=== PATIENT | male | born 1950 | race African-American/Black ===

== ENCOUNTER 2021-03-10 19:34 | Emergency (ER) | payer MEDICARE, SELFPAY ==
[2021-03-10 19:38] VITALS: BP 169/79; PULSE 98; RESP 18; TEMP 37; O2SAT 100
--- NOTE | 2021-03-10 20:58 | PC.NURSE ---
pt arrives c/o yeast infection to head of penis. pt reports recent prostate surgery 4-6 weeks ago, and noticed whit discharge/exudate to head of penis x 1 week. reports itching. denies risk for stds.
[2021-03-10 21:33] VITALS: BP 167/98; PULSE 67; RESP 20; O2SAT 98
--- NOTE | 2021-03-10 21:36 | PC.NURSE ---
d/c home at 2130.
--- NOTE | 2021-03-10 21:37 | PC.NURSE ---
unable to remove from tracker d/t registration.
--- NOTE | 2021-03-10 21:39 | ED.GENADULT ---
HPI - General Adult General Chief complaint: Urogenital-Male Stated complaint: Yeast infection on genitals Time Seen by Provider: 03/10/21 20:41 Source: patient Mode of arrival: ambulatory Limitations: no limitations History of Present Illness HPI narrative: Patient is a 70-year-old diabetic male presenting with chief complaint of yeast to his penis over the past week. He states he had prostate surgery 6 weeks ago and has not been sexually active. He does not have concern for std. He reports it is white and curdy. He denies any other symptoms. Related Data Allergies Allergy/AdvReac Type Severity Reaction Status Date / Time No Known Allergies Allergy Verified 03/10/21 21:11 Review of Systems Review of Systems: CONSTITUTIONAL: Denies fever, chills, or sweats. EYES: Denies visual changes, redness, or discharge. ENT: Denies rhinorrhea, congestion, sore throat, or otalgia. CARDIOVASCULAR: Denies chest pain, palpitations, or edema. RESPIRATORY: Denies cough or dyspnea. GASTROINTESTINAL: Denies abdominal pain, nausea, vomiting, or diarrhea. GENITOURINARY: Denies dysuria or hematuria. SKIN: reports rash and itching. MUSCULOSKELETAL: Denies back pain, myalgia, or joint pain NEUROLOGIC: Denies headache, numbness, dizziness, or weakness. PSYCHIATRIC: Denies anxiety or depression. Exam Narrative: GENERAL: Well-appearing, well-nourished. HEAD: Normocephalic, atraumatic. EYES: PERRLA and EOMI. EXTREMITIES: No acute changes in ROM. No edema. SKIN: white curdy consistent with candidiasis to patient's penis. No sores or ulcerations noted. Warm, dry, no rash. NEURO: No focal deficits. Alert and oriented x3. PSYCH: Normal mood and affect. Course Vital Signs Vital signs: Vital Signs Temperature 98.6 F 03/10/21 19:38 Pulse Rate 98 03/10/21 19:38 Respiratory Rate 18 03/10/21 19:38 Blood Pressure 169/79 H 03/10/21 19:38 Pulse Oximetry 100 03/10/21 19:38 Temperature 98.6 F 03/10/21 19:38 Pulse Rate 67 03/10/21 21:33 Respiratory Rate 20 03/10/21 21:33 Blood Pressure 167/98 H 03/10/21 21:33 Pulse Oximetry 98 03/10/21 21:33 Medical Decision Making MDM Narrative Medical decision making narrative: Discussed with patient plan of care and need to follow up with primary care for reevaluation within 1 week, SOONER IF ANY QUESTIONS OR CONCERNS. Discussed if ointment didn't work their are additional options to try. Discussed keep genital area clean and dry. Patient has diabetes which makes him more likely for yeast as well as prior surgery with antibiotics. Discussed rter instructions. Vital Signs Vital Signs: Vital Signs Temperature 98.6 F 03/10/21 19:38 Pulse Rate 98 03/10/21 19:38 Respiratory Rate 18 03/10/21 19:38 Blood Pressure 169/79 H 03/10/21 19:38 Pulse Oximetry 100 03/10/21 19:38 Temperature 98.6 F 03/10/21 19:38 Pulse Rate 67 03/10/21 21:33 Respiratory Rate 20 03/10/21 21:33 Blood Pressure 167/98 H 03/10/21 21:33 Pulse Oximetry 98 03/10/21 21:33 Discharge Plan Discharge Clinical Impression: Balanitis Patient Disposition: Home, Self-Care Condition: Stable Instructions: Antibiotic Form, Balanitis (ED) Additional Instructions: Use ointment twice a day for 1-3 weeks. Follow up with pcp for reevaluation within one week, sooner if symptoms worsen. Be sure to keep genitals clean and dry. Keep you blood sugars at appropriate levels. Return to the ER if you have any emergent symptoms. Prescriptions: New miconazole nitrate [Antifungal Cream (miconazole)] 2 % cream 1 applic topical BID Qty: 42.5 RF: 0 Follow-up/Referrals: Annemarie,Timoteo Peters MD [Primary Care Provider] - Time of Disposition: 21:03
== END 2021-03-10 21:42 | disposition home or self-care (01) ==
PROVIDERS: Emergency Provider Emergency Medicine; PCP Family Medicine
DX: N48.1 Balanitis (principal); E11.9 Type 2 diabetes mellitus without complications; Z98.890 Other specified postprocedural states
CPT/HCPCS: 99283

== ENCOUNTER 2021-07-05 07:15 | Observation (INO) | payer MEDICARE, SELFPAY ==
[2021-07-05] VITALS (21 sets, daily range): BP systolic 132–203; BP diastolic 79–112; PULSE 60–83; RESP 11–20; TEMP 36.4–36.8; O2SAT 97–100; BMI 34.0
--- NOTE | 2021-07-05 | ECHO_ITS ---
Patient Info Name: Esau Joseph Age: 70 years : 1950 Gender: Male Ht: 72 in Wt: 250 lbs BSA: 2.44 m2 HR: 70 bpm BP: 135 / 80 mmHg Heart Rhythm: Sinus Rhythm Exam Date: 07/05/2021 11:41 AM Exam Location: [facility] Patient Status: Inpatient Admit Date: 07/05/2021 Staff Ordering Physician: Alec Sanchez MD Quartz Miner: Renny Juárez RDCS, RT Attending Provider: Randall Akins MD Exam Type: CA echo doppler color flow Study Info Complete two-dimensional, color flow and Doppler transthoracic echocardiogram is performed. Strain analysis performed. Summary 1. Complete two-dimensional, color flow and Doppler transthoracic echocardiogram is performed. 2. Strain analysis performed. 3. Left ventricular chamber dimension is normal. 4. Left ventricular systolic function is normal, estimated at 65-70%. 5. Left ventricular septal wall motion is normal. 6. The left ventricular diastolic function is grade I diastolic dysfunction. 7. Global longitudinal strain is normal at -18 %. 8. Left atrial chamber dimension is mildly enlarged. 9. There is mild aortic valve stenosis with a peak velocity of 190 cm/s, mean gradient of 8 mmHg, and aortic valve area of 2.1 cm2. 10. There is moderate aortic valve calcification. 11. There is mild mitral valve regurgitation. 12. There is mild tricuspid valve regurgitation. 13. Mild pulmonary hypertension, estimated pulmonary arterial systolic pressure is 39 mmHg. 14. The aortic root size at the sinus of Valsalva is mildly dilated. Left Ventricle Left ventricular chamber dimension is normal. Left ventricular systolic function is normal, estimated at 65-70%. There is moderately increased left ventricular wall thickness. Left ventricular septal wall motion is normal. The left ventricular diastolic function is grade I diastolic dysfunction. Global longitudinal strain is normal at -18 %. Right Ventricle Right ventricular chamber dimension is normal. Right ventricular systolic function is normal. Left Atria Left atrial chamber dimension is mildly enlarged. Right Atria Right atrial chamber dimension is normal. Atrial Septum Intact interatrial septum visualized by color flow imaging. Aortic Valve The aortic valve is trileaflet. There is mild aortic valve stenosis with a peak velocity of 190 cm/s, mean gradient of 8 mmHg, and aortic valve area of 2.1 cm2. There is trace aortic valve regurgitation. There is moderate aortic valve calcification. Pulmonic Valve The pulmonic valve is normal. There is no pulmonic valve stenosis. There is trace pulmonic regurgitation. Mitral Valve The mitral valve has normal leaflets. There is no mitral valve stenosis. There is mild mitral valve regurgitation. Tricuspid Valve The tricuspid valve leaflets are normal. There is no significant tricuspid valve stenosis. There is mild tricuspid valve regurgitation. Mild pulmonary hypertension, estimated pulmonary arterial systolic pressure is 39 mmHg. Pericardium/Pleural The pericardium appears normal. There is no pericardial effusion. Aorta The aortic root size at the sinus of Valsalva is mildly dilated. Left Ventricular Outflow Tract Name Value Normal LVOT 2D LVOT
--- NOTE | ~2021-07-05 | XR_ITS ---
EXAMINATION: XR chest 2V EXAM DATE: 07/05/2021 07:53 INDICATION: Left sided chest pain started midline yest., no cardiac hx. TECHNIQUE: Frontal and lateral projections of the chest obtained and reviewed. There is no prior jacklyn dy for comparison. FINDINGS: Left lung is clear. There is elevated right hemidiaphragm with adjacent opacity most consi stent with subsegmental right middle lobe atelectasis has. No prior studies to determine if this is c hronic. Difficult to exclude superimposed pneumonia or right infrahilar malignancy. No pneumothorax o r pleural effusion. Cardiomediastinal silhouette is normal. There is aortic arteriosclerosis. IMPRESSION: Elevated right hemidiaphragm, adjacent segmental atelectasis. Superimposed pneumonia or c ancer not excludable. Reviewed, dictated and finalized at location D. NT APPLICATION SUPPORT SPECIALIST IMPRESSION: Elevated right hemidiaphragm, adjacent segmental atelectasis. Super imposed pneumonia or cancer not excludable.
--- NOTE | ~2021-07-05 | CT_ITS ---
EXAMINATION: CT diagnostic chest wo con DATE: 07/05/2021 08:45 INDICATION: Lung cancer , pneumonia, right-sided chest pain. TECHNIQUE: Computed tomography (CT) of the chest was performed without intravenous contrast. Addition al 3D reconstructions utilizing coronal maximum intensity projection (MIP) were performed. Automated exposure control and iterative reconstruction technique were employed. The dose-length product was 43 6.32 mGy-cm. COMPARISON: None FINDINGS: Elevation the right hemidiaphragm with right middle lobe compressive atelectasis and is some mild dep endent atelectasis in the bilateral lower lobes. A few less than 4 mm pulmonary nodules the right upp er lobe. No pneumonia, pulmonary edema or pleural effusion. Heart size is normal. Atherosclerotic cor onary artery calcification. Thoracic aorta is normal in caliber. No pathologically enlarged thoracic lymphadenopathy. Diffuse hepatic steatosis with focal sparing along the gallbladder fossa. Severe tho racic spondylosis. IMPRESSION: 1. Elevation right hemidiaphragm with associated compressive atelectasis in the right middle lobe. 2. A few <4 mm pulmonary nodules in the right upper lobe. If the patient is low risk for lung cancer, no follow-up is needed. If the patient is high risk (i.e., history of smoking or asbestos or signifi cant radiation exposure), optional follow-up chest CT could be considered at 12 months. 3. Diffuse hepatic steatosis. Reviewed, dictated and finalized at location A. OSIVES MIXER OPERATOR IMPRESSION: 1. Elevation right hemidiaphragm with associated compressive atelectasis in the right middle lobe. 2. A few <4 mm pulmonary nodules in the right upper lobe. If the patient is low risk for lung cancer, no follow-up is needed. If the patient is high risk (i.e ., history of smoking or asbestos or significant radiation exposure), optional follow-up chest CT could be considered at 12 months. 3. Diffuse hepatic steatosis.
--- NOTE | ~2021-07-05 | US_ITS ---
EXAMINATION: US renal BI DATE: 07/05/2021 17:55 INDICATION: Acute on chronic renal failure. TECHNIQUE: Multiple ultrasound grayscale images of the kidneys were obtained. COMPARISON: Chest CT 07/05/2021 FINDINGS: The right kidney measures 12.8 x 6.5 x 6.5 cm. The left kidney measures 11.5 x 6.6 x 5.7 cm. The kidn eys demonstrate normal parenchymal echogenicity. There are cysts in the kidneys measuring up to 2.6 c m on the left. There is a 1.8 cm hypoechoic mass in right kidney. There is no hydronephrosis. The lorena dder is normal. IMPRESSION: 1. Normal kidney sizes. No hydronephrosis. 2. 1.8 cm right kidney mass, which may be a cyst or less likely a neoplasm. Abdomen CT without and wi th contrast is recommended. If the patient cannot receive contrast, follow-up imaging is recommended in 6 months. Reviewed, dictated and finalized at location E. IN STRIPPER IMPRESSION: 1. Normal kidney sizes. No hydronephrosis. 2. 1.8 cm right kidney mass, which may be a cyst or less likely a neoplasm. Abd omen CT without and with contrast is recommended. If the patient cannot receive contrast, follow-up imaging is recommended in 6 months.
--- NOTE | ~2021-07-05 | NM_ITS ---
EXAMINATION: NM eder stress w perfusion DATE: 07/05/2021 14:29 INDICATION: Atypical chest pain TECHNIQUE: Rest images were obtained following intravenous administration of 10.9 mCi Tc99m tetrofosm in (Myoview). The patient was infused intravenously with Lexiscan (Regadenoson). Then, 23.6 mCi Tc99m tetrofosmin (Myoview) was administered intravenously, and stress images were obtained. Data was raymond nstructed into short axis and horizontal and vertical long axis SPECT images. Gated SPECT images were also obtained. COMPARISON: None. FINDINGS: Small mild nonreversible perfusion defect in the mid anterolateral segment consistent with infarct and slightly larger reversible perfusion defect consistent with ischemia in the mid inferolat eral and basilar inferolateral segments. There is normal left ventricular chamber size, wall motion and ejection fraction. Left ventricular ejection fraction measures 62%. IMPRESSION: 1. Small region of mild reversible ischemia at the mid inferolateral and basilar inferolateral segmen ts and adjacent small mild nonreversible infarct at the mid anterolateral segment. 2. Left ventricular ejection fraction measuring 62%. Reviewed, dictated and finalized at location A. O RENTAL CLERK IMPRESSION: 1. Small region of mild reversible ischemia at the mid inferolateral and basila r inferolateral segments and adjacent small mild nonreversible infarct at the m id anterolateral segment. 2. Left ventricular ejection fraction measuring 62%.
--- NOTE | 2021-07-05 07:20 | ECG_ITS ---
Measurements Intervals Ehrhardt Rate: 80 P: 54 WA: 204 QRS: -19 QRSD: 87 T: 65 QT: 370 QTc: 429 Interpretive Statements SINUS RHYTHM BORDERLINE AV CONDUCTION DELAY VOLTAGE CRITERIA FOR LVH BORDERLINE ECG Electronically Signed On 07-05-2021 7:44:20 TECHNICAL SERVICE ENGINEER by Mauricio Tolliver D.O.
[2021-07-05 07:43] LABS: Basophils Percent Auto 0.4 % (0.2-1.2); Eosinophils Absolute Auto 0.2 K/mm3 (0-0.3); Eosinophils Percent Auto 2.5 % (0-4.4); Hematocrit 35.9 % (42.0-52.0); Hemoglobin 11.2 g/dL (14.0-18.0); Immature Granulocyte Absolute 0.02 K/mm3 (0.00-0.031); Immature Granulocyte Percent A 0.3 % (0-0.5); Lymphocytes Absolute Auto 1.16 K/mm3 (0.9-3.2); Lymphocytes Percent Auto 16.3 % (18.3-44.2); Mean Corpuscular HGB Conc 31.2 g/dl (32-36); Mean Corpuscular Hemoglobin 26.8 pg (26-34); Mean Corpuscular Volume 85.9 fl (80-100); Mean Platelet Volume 9.1 fl (7.4-10.4); Monocytes Absolute Auto 0.6 K/mm3 (0.1-0.6); Monocytes Percent Auto 8.3 % (2.6-8.5); Neutrophils Absolute Auto 5.1 K/mm3 (1.3-6.7); Neutrophils Percent Auto 72.2 % (45.5-73.1); Platelet Count Result 303 k/mm3 (150-375); Red Blood Count 4.18 M/mm3 (4.6-6.20); Red Cell Distribution Width 16.5 % (11.5-14.5); White Blood Count 7.1 K/mm3 (4.5-10.0)
[2021-07-05] MEDS: ASPIRIN 81 MG CHEWABLE TABLET 324 MG PO (07:52)
[2021-07-05 07:56] LABS: Alanine Aminotransferase 22 U/L (4-50); Albumin Level 4.3 g/dL (3.5-5.1); Alkaline Phosphatase 71 U/L (38-126); Anion Gap 9 mmol/L (8-16); Aspartate Amino Transferase 22 U/L (17-59); Bilirubin,Total 0.4 mg/dL (0.2-1.3); Blood Urea Nitrogen 36 mg/dL (9-20); Calcium 9.1 mg/dL (8.4-10.2); Carbon Dioxide 23 mmol/L (22-30); Chloride 107 mmol/L (98-107); Estimated CRCL calculation 47 ml/min; Estimated Glomerular Filt Rate 48; Glucose 94 mg/dL (65-110); Lipase 372 U/L (23-300); Sodium 139 mmol/L (137-145)
[2021-07-05 08:01] LABS: INR 0.9; Prothrombin Time 12.3 Seconds (11.1-14.7)
--- NOTE | 2021-07-05 08:10 | ED.CHESTPAIN ---
HPI - Chest Pain General Chief Complaint: Chest Pain Stated Complaint: chest pain Time Seen by Provider: 07/05/21 08:08 Source: patient and family Mode of arrival: ambulatory Limitations: no limitations History of Present Illness HPI narrative: 70 years old -[place] male presents with right chest pain started last night while sitting watching TV, radiating to right scapula, lasted for hours, woke up this morning with pain on the left side of the chest resolved on arrival to the emergency room. Patient denies shortness of breath, headache, back pain or abdominal pain. Patient reports pain gets worse when he tried to get up or with deep breathing. Patient denies any fever, chills, coughing, shortness of breath History of diabetes, hypertension, his younger brother had coronary artery disease at age 60. Patient quit smoking 20 years ago. Patient does not take antiplatelet or anticoagulant medications Related Data Home Medications Medication Instructions Recorded Confirmed diltiazem HCl 120 mg PO DAILY 07/05/21 07/05/21 doxazosin 4 mg DAILY 07/05/21 07/05/21 glipizide 10 mg PO BID 07/05/21 07/05/21 metformin 1,000 mg PO BID 07/05/21 07/05/21 Allergies Allergy/AdvReac Type Severity Reaction Status Date / Time No Known Allergies Allergy Verified 07/05/21 07:29 Review of Systems Review of Systems: CONSTITUTIONAL: Denies fever, chills, or sweats. EYES: Denies visual changes, redness, or discharge. ENT: Denies rhinorrhea, congestion, sore throat, or otalgia. CARDIOVASCULAR: Denies chest pain, palpitations, or edema. RESPIRATORY: Denies cough or dyspnea. GASTROINTESTINAL: Denies abdominal pain, nausea, vomiting, or diarrhea. GENITOURINARY: Denies dysuria or hematuria. SKIN: Denies rash or itching. MUSCULOSKELETAL: Denies back pain, joint pain, or myalgia. NEUROLOGIC: Denies headache, numbness, or weakness. PSYCHIATRIC: Denies anxiety or depression. PMFSH Social History Social History Alcohol intake: never Substance use: never Substance use type: does not use Spiritual care concerns: Yes Exam Narrative: General appearance: Well-developed, well-nourished Skin: Normal color Head: Normocephalic, nontraumatic Eyes: Clear conjunctiva ENT: Oropharynx normal, ears normal, nose normal Neck: Supple, nontender Chest and respiratory: Airway patent, no respiratory distress, no accessory muscle use Heart: Regular rate/rhythm Abdomen: Soft, nontender, no organomegaly, quiet bowel sounds Vascular: Normal peripheral pulses, normal capillary refill. Musculoskeletal: Normal range of motion, nontender back Neurologic: Alert and oriented ?3, CURRICULUM DEVELOPMENT COORDINATOR is normal as tested, no gross motor deficit Course Course Emergency Course: Stable Vital Signs Vital signs: Vital Signs Temperature 36.8 C 07/05/21 07:24 Pulse Rate 83 07/05/21 07:24 Respiratory Rate 20 07/05/21 07:24 Blood Pressure 203/112 H 07/05/21 07:24 Pulse Oximetry 100 07/05/21 07:24 Temperature 36.8 C 07/05/21 07:24 Pulse Rate 64 07/05/21 09:32 Respiratory Rate 16 07/05/21 09:32 Blood Pressure 146/87 H 07/05/21 09:32 Pulse Oximetry 100 07/05/21 09:32 MDM - Chest Pain MDM Narrative Medical decision making narrative: Patient presents with intermittent chest pain, started last night, patient did not take his blood pressure medication this morning prior to arrival to the emergency room. Work-up showed no acute abnormalities. Patient cardiac score is 5. Patient will be admitted for further evaluation. Differential Diagnosis Differential diagnosis: Likely stable angina, unstable angina pectoris, atypica
[2021-07-05] MEDS: NITROGLYCERIN OINTMENT 1 INCH DOSE TRANSDERM (08:18)
[2021-07-05] MEDS: METOPROLOL TARTRATE INJ 5 MG/5 ML VIAL IV PUSH ×3 (08:18→08:53)
[2021-07-05 08:19] LABS: Troponin I < 0.012 ng/mL (0.000-0.034)
--- NOTE | 2021-07-05 10:11 | ADMGEN ---
This patient, Esau Joseph Jr., was admitted to [facility]. Patient/family oriented to hospital policies and general routines including ID bracelet, bed and alarms, visiting hours, pain management, procedures, bathroom and other care routines, personal items, smoking policy, room service/diet, and visiting hours. Information on how to activate the Rapid Response Team has been discussed. Patient/Family are encouraged to report perceived risks to care and to ask questions if they do not understand what they are told or what they should do.
[2021-07-05 10:32] LABS: Troponin I < 0.012 ng/mL (0.000-0.034)
--- NOTE | 2021-07-05 10:57 | EST_ITS ---
Patient Info Name: Esau Joseph Age: 70 years : 1950 Gender: Male Ht: 70 in Wt: 250 lbs BSA: 2.41 m2 HR: 65 bpm BP: 161 / 81 mmHg Heart Rhythm: Sinus Rhythm Exam Date: 07/05/2021 1:22 PM Exam Location: [facility] Stress Patient Status: Inpatient Admit Date: 07/05/2021 Staff Ordering Physician: Alec Sanchez MD Attending Provider: Randall Akins MD Exercise Technologist: Dorothy Connelly, CT Nurse: ARABELLA ZENDEJAS Exam Type: CA stress eder w NM Study Info Indications R07.9 - Chest pain, unspecified A regadenoson stress test was performed. Summary 1. Please correlate with nuclear medicine images, reported separately. 2. No abnormal ST-T wave changes with lexiscan. Protocol: Lexiscan Stress ECG Details Stage: REST Duration (min): 1 min : 51 sec HR (bpm): 64 SBP (mmHg): 161 DBP (mmHg): 81 Stage: REST Duration (min): 6 min : 16 sec HR (bpm): 65 SBP (mmHg): 161 DBP (mmHg): 81 Stage: STAGE 1 Duration (min): 0 min : 59 sec HR (bpm): 88 SBP (mmHg): 161 DBP (mmHg): 81 Stage: RECOVERY Duration (min): 1 min : 0 sec HR (bpm): 83 SBP (mmHg): 131 DBP (mmHg): 68 Stage: RECOVERY Duration (min): 2 min : 0 sec HR (bpm): 84 SBP (mmHg): 131 DBP (mmHg): 68 Stage: RECOVERY Duration (min): 3 min : 0 sec HR (bpm): 88 SBP (mmHg): 133 DBP (mmHg): 74 Stage: RECOVERY Duration (min): 3 min : 24 sec HR (bpm): 88 SBP (mmHg): 133 DBP (mmHg): 74 Rest HR: 65 bpm Peak HR: 92 bpm Rest Sys BP: 161 mmHg Peak Sys BP: 133 mmHg Max Pred HR: 149 bpm % Max Pred HR: 62 % Target HR: 127 bpm Max RPP: 12,236 bpm*mmHg BP Response: Normal blood pressure response Termination Reason: Completed protocol Cardiac Symptoms: None Total Time: 1 min : 0 sec Rest Dee BP: 81 mmHg Peak Dee BP: 74 mmHg Total Dose: 0.4 mg Resting ECG Normal sinus rhythm. JEWELRY POLISHER-Septal infarction. Stress ECG No abnormal ST/T wave changes with Lexiscan. Arrhythmias None. Report Signatures
--- NOTE | 2021-07-05 10:59 | PM.CNCAR ---
Assessment and Plan Assessment and plan (1) Chest pain: Qualifiers: Chest pain type: unspecified Qualified Code(s): R07.9 - Chest pain, unspecified Code(s): R07.9 - Chest pain, unspecified Status: Acute Assessment and Plan: This is atypical chest pain. Right-sided chest pain yesterday lasted for several hours. Improved with famotidine. He had different pain this morning which is more pleuritic in nature. Troponins are negative an EKG is unremarkable. Continue to trend troponins. He does have several risk factors for heart disease and therefore will order a Lexiscan myocardial perfusion study for ischemic evaluation. Aspirin 81 mg p.o. daily will be initiated. Will check a fasting lipid panel and he likely needs to be on a statin given his diabetes unless otherwise contraindicated. (2) Uncontrolled hypertension: Code(s): I10 - Essential (primary) hypertension Status: Acute Assessment and Plan: Discontinue diltiazem. Blood pressure was markedly elevated at presentation which did improve with IV metoprolol. Will discontinue his diltiazem and transition to amlodipine 5 mg p.o. daily. Will add metoprolol tartrate 25 mg p.o. b.i.d.. JORGE-inhibitor/ARB would be of benefit also depending on renal function (3) Renal failure: Qualifiers: Renal failure chronicity: unspecified chronicity Qualified Code(s): N19 - Unspecified kidney failure Code(s): N19 - Unspecified kidney failure Status: Acute Assessment and Plan: Creatinine 1.7. I do not know if this is new or chronic. Workup per hospitalist. (4) Systolic ejection murmur: Code(s): R01.1 - Cardiac murmur, unspecified Status: Acute Assessment and Plan: Probably some degree of aortic valve sclerosis. Will check a 2D echocardiogram with Doppler (5) Diabetes mellitus: Code(s): E11.9 - Type 2 diabetes mellitus without complications Status: Acute Assessment and Plan: On metformin. History of Present Illness History of Present Illness Consult date/time: 07/05/21 10:59 Requesting physician: Willa Nieves MD Consult reason: chest pain Reason For Visit: Chest pain/uncontrolled hypertension/renal failure Narrative: Date of service 07/05/2021 Reason consultation: Chest pain, hypertension Requesting provider: Dr. Nieves History patient is a 70-year-old male who has a history of high blood pressure, diabetes and family history of heart disease. He presented hospital because of some chest pain. Yesterday afternoon about 3:00 p.m. he started developed some right-sided chest pain that radiated to his right shoulder and up into his neck. Thought it was heartburn and took famotidine with gradual improvement of his symptoms. He had discomfort though for several hours. Whenever he went to bed he still had a little bit of discomfort on the right side. Whenever he woke up this morning he no longer had the right-sided discomfort but did have some pain on the left side of his chest. It was brought on by breathing. He has had no exertional symptoms recently. He had no associated shortness of breath, nausea or diaphoresis with any of his chest pain symptoms. Because of his chest pain though he came to the hospital for further workup and evaluation. He was markedly hypertensive at admission. Troponins are negative an EKG shows no acute ST or T-wave abnormalities. He is admitted for further workup and evaluation and treatment of his hypertension, chest pain and renal failure. His PCP is Dr. Sharpe. He denies any recent syncope, presyncope, paroxysmal nocturnal dyspnea, orthopnea, edema or palpitation Review of Systems Review of Systems: All systems reviewed & are unremarkable except as noted in HPI and below Constitutional: Constitutional: Denies weakness Eyes: Eyes: Denies blurry vision ENT: Reports Normal hearing present Cardiovascular: Cardiovascular: Reports chest pain
[2021-07-05] MEDS: amLODIPine BESYLATE 5 MG TABLET PO (12:03)
[2021-07-05 14:58] LABS: Troponin I < 0.012 ng/mL (0.000-0.034)
--- NOTE | 2021-07-05 15:34 | PM.IMHP ---
H&P: HPI History of Present Illness Date/Time: 07/05/21 1400 this is a 70-year-old male patient who has a past medical history of hypertension and diabetes. It sounds like his diabetes has not been well controlled a nor has his high blood pressure. The patient also stated that he has some acid reflux as well. He was on since PPIs for several years and just takes it occasionally when he starts to have some problems. The patient stated that he has not had problems with his acid reflux for quite some time. However yesterday he was just sitting in a chair watching TV knee developed some pain to his right shoulder and right arm. Norberto had pain in his right side of his chest. The patient stated that he took famotidine and that helped. The patient was able to sleep during the night. However he woke up early this morning was having some pain to the left upper chest and left arm. Although the patient has no previous heart history he decided that he would have it checked out. The patient stated that he has some discomfort when he takes a deep breath. He has no prior history of having any PE. This is more of a pleuritic pain. 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 However the patient stated that he does not remember hurting himself or having any type of injury. Patient's H&H is 11.2 and 35.9. Patient's BUN is 36 creatinine 1.7. GFR is 48. Troponin levels are negative x3. Cardiology has been consulted. Lexiscan was read as the following. Small region of mild reversible ischemia at the mid inferolateral and basilar inferolateral segments and adjacent small mild nonreversible infarct at the mid anterolateral segment. 2. Left ventricular ejection fraction measuring 62%. 1. Please correlate with nuclear medicine images, reported separately. 2. No abnormal ST-T wave changes with lexiscan. Chest CT was read as following1. Elevation right hemidiaphragm with associated compressive atelectasis in the right middle lobe. 2. A few <4 mm pulmonary nodules in the right upper lobe. If the patient is low risk for lung cancer, no follow-up is needed. If the patient is high risk (i.e., history of smoking or asbestos or significant radiation exposure), optional follow-up chest CT could be considered at 12 months. 3. Diffuse hepatic steatosis.Chest x-ray was read as IMPRESSION: Elevated right hemidiaphragm, adjacent segmental atelectasis. Superimposed pneumonia or cancer not excludable. Patient was admitted to observation status on 07/05/2021. Chief Complaint: chest pain Review of Systems Review of Systems: All systems reviewed & are unremarkable except as noted in HPI and below Constitutional: Constitutional: Reports as per HPI and Reports no additional constitutional complaints Eyes: Eyes: Reports as per HPI and Reports no additional eye complaints ENT: Reports system reviewed and no additional complaints, except as documented and Reports Normal hearing present Cardiovascular: Cardiovascular: Reports no additional cardiovascular complaints Respiratory: Respiratory: Reports no additional respiratory complaints and Reports no additional respiratory complaints Gastrointestinal: Gastrointestinal: Reports as per HPI and Reports no additional gastrointestinal complaints Musculoskeletal: Musculoskeletal: Reports no additional musculoskeletal complaints Integumentary/Breasts: Skin/Breast: Reports system reviewed and no additional complaints, except as docu and Reports as per HPI Neurologic: Reports system reviewed and no additional complaints, except as documented, Reports as per HPI and Reports Normal hearing present Psychiatric: Psychiatric: Reports no additional psychiatric complaints and Reports as per HPI Endocrine: Endocrine: Reports no additional endocrine complaints Hematologic/Lymphatic: Hematologic/Lymphatic: Reports no additional hematologic/lymphatic complaints Allergic/Immunologic: Allergic/Immunologic: Reports no additi
[2021-07-05 16:50] LABS: Glucose Point of Care 123 mg/dl (65-105)
[2021-07-05] MEDS: METOPROLOL TARTRATE 25 MG TABLET PO (20:21)
[2021-07-05] MEDS: PANTOPRAZOLE SODIUM IV 40 MG VIAL IV PUSH (20:21)
[2021-07-05 21:29] LABS: Glucose Point of Care 231 mg/dl (65-105)
[2021-07-06] VITALS (7 sets, daily range): BP systolic 143–159; BP diastolic 85–95; PULSE 62–82; RESP 13–18; TEMP 35.7–36.4; O2SAT 97–99
[2021-07-06 05:38] LABS: Basophils Percent Auto 0.8 % (0.2-1.2); Eosinophils Absolute Auto 0.2 K/mm3 (0-0.3); Eosinophils Percent Auto 3.6 % (0-4.4); Hematocrit 33.2 % (42.0-52.0); Hemoglobin 10.3 g/dL (14.0-18.0); Immature Granulocyte Absolute 0.02 K/mm3 (0.00-0.031); Immature Granulocyte Percent A 0.4 % (0-0.5); Lymphocytes Absolute Auto 0.97 K/mm3 (0.9-3.2); Lymphocytes Percent Auto 18.4 % (18.3-44.2); Mean Corpuscular Hemoglobin 26.3 pg (26-34); Mean Corpuscular Volume 84.9 fl (80-100); Mean Platelet Volume 8.7 fl (7.4-10.4); Monocytes Absolute Auto 0.4 K/mm3 (0.1-0.6); Monocytes Percent Auto 7.4 % (2.6-8.5); Neutrophils Absolute Auto 3.7 K/mm3 (1.3-6.7); Neutrophils Percent Auto 69.4 % (45.5-73.1); Platelet Count Result 283 k/mm3 (150-375); Red Blood Count 3.91 M/mm3 (4.6-6.20); Red Cell Distribution Width 16.4 % (11.5-14.5); White Blood Count 5.3 K/mm3 (4.5-10.0)
[2021-07-06 05:46] LABS: Lactic Acid Reflex 0.7 mmol/L (0.7-2.1)
[2021-07-06 05:50] LABS: Alanine Aminotransferase 20 U/L (4-50); Albumin Level 3.9 g/dL (3.5-5.1); Alkaline Phosphatase 65 U/L (38-126); Anion Gap 9 mmol/L (8-16); Aspartate Amino Transferase 20 U/L (17-59); Bilirubin,Total 0.6 mg/dL (0.2-1.3); Blood Urea Nitrogen 30 mg/dL (9-20); CRP 1.3 mg/dL (<1.0); Calcium 8.9 mg/dL (8.4-10.2); Carbon Dioxide 27 mmol/L (22-30); Chloride 103 mmol/L (98-107); Estimated CRCL calculation 50 ml/min; Estimated Glomerular Filt Rate 52; Glucose 109 mg/dL (65-110); Sodium 139 mmol/L (137-145)
[2021-07-06 06:00] LABS: D Dimer 1.17 ug/mL (<0.48)
[2021-07-06 09:05] LABS: Glucose Point of Care 89 mg/dl (65-105)
[2021-07-06 09:56] LABS: Hemoglobin A1C 6.4 % (<5.7)
[2021-07-06] MEDS: METOPROLOL TARTRATE 25 MG TABLET PO (09:57)
[2021-07-06] MEDS: amLODIPine BESYLATE 5 MG TABLET PO (09:57)
[2021-07-06] MEDS: ASPIRIN 81 MG CHEWABLE TABLET PO (09:57)
[2021-07-06] MEDS: PANTOPRAZOLE SODIUM IV 40 MG VIAL IV PUSH (09:58)
--- NOTE | 2021-07-06 10:29 | PM.PNCARD ---
Progress Note: A&P Assessment and Plan (1) Chest pain: Qualifiers: Chest pain type: unspecified Qualified Code(s): R07.9 - Chest pain, unspecified Code(s): R07.9 - Chest pain, unspecified Status: Acute Assessment and Plan: Atypical symptoms, normal EKG, normal troponins. Likely non cardiac. (2) Uncontrolled hypertension: Code(s): I10 - Essential (primary) hypertension Status: Acute Assessment and Plan: Meds adjusted. Blood pressure improved. Probably resume the telmisartan. Discussed deleterious effects of hypertension on Heart Lung and kidneys. Kent SBP 110-130 mmHg. Long-term follow-up needed. (3) Abnormal stress test: Code(s): R94.39 - Abnormal result of other cardiovascular function study Status: Acute Assessment and Plan: Small mild area of inferior lateral ischemia noted. Small fixed defect also present. EF 62%. He has coronary artery calcification on his CT scan. Patient therefore does have some degree of coronary disease, probably asymptomatic. Recommend aspirin and atorvastatin 40 mg daily. Will check a lipid panel today. (4) Chronic renal failure, stage 3 (moderate): Code(s): N18.30 - Chronic kidney disease, stage 3 unspecified Status: Chronic Assessment and Plan: Do not have any prior creatinine for comparison. (5) Aortic valve stenosis, nonrheumatic: Code(s): I35.0 - Nonrheumatic aortic (valve) stenosis Status: Acute Assessment and Plan: Reviewed mild aortic stenosis with the patient and his . Will need a repeat echo in a few years. (6) Diabetes mellitus: Code(s): E11.9 - Type 2 diabetes mellitus without complications Status: Acute Additional Plan Okay for discharge from my point of view. Will have patient follow-up with Dr. Sanchez in the office to consider further testing (cardiac catheterization or CTA? Depending on patient's renal function) or simply treat CAD empirically with aspirin, statin etc. unless he becomes more symptomatic. Subjective Date/time seen: 07/06/21 10:29 Mr. Joseph was admitted with atypical chest discomfort. Troponins were negative. EKG showed no ischemic changes. Blood pressure was 203/[address] Sanchez change his diltiazem to amlodipine and added metoprolol. His home telmisartan/HCTZ is not been resumed. And ordered Lexiscan, which was mildly abnormal as below. He also has hypertension and diabetes. Date of service 07/06/2021: Patient is feeling well, has had no further chest discomfort. No breathing problems. attended our visit by telephone. Echo, CT, Lexiscan reviewed as below. Review of Systems Constitutional: Constitutional: Denies weakness Eyes: Eyes: Reports no additional eye complaints Cardiovascular: Cardiovascular: Denies chest pain, Denies leg edema and Denies palpitations Respiratory: Respiratory: Denies dyspnea Gastrointestinal: Gastrointestinal: Denies abdominal pain Genitourinary: Genitourinary: Denies no additional male genitourinary complaints Comments: Patient reviewed his prostate issues, surgery, wonders if his doxazosin is still necessary. Recommended follow-up with Dr. Sharpe and his urologist. Musculoskeletal: Musculoskeletal: Reports no additional musculoskeletal complaints Integumentary/Breasts: Skin/Breast: Denies rash Neurologic: Reports system reviewed and no additional complaints, except as documented Psychiatric: Psychiatric: Reports no additional psychiatric complaints and Denies anxiety Endocrine: Endocrine: Reports other Comments: Patient is pleased with diabetes control Exam Narrative: Obese male in no distress very pleasant Const: General: comfortable and no acute distress HENMT: General nose exam: no epistaxis Eyes: EOM: EOMs intact bilaterally Neck: Neck: supple Resp: Effort & Inspection: normal respiratory effort Auscultation: clear to auscultation b
[2021-07-06 11:36] LABS: Cholesterol 187 mg/dL (0-200); HDL Direct 36 mg/dL; Triglycerides 74 mg/dL (<150)
[2021-07-06 11:47] LABS: LDL Cholesterol Direct 107 mg/dL
[2021-07-06 12:17] LABS: Glucose Point of Care 125 mg/dl (65-105)
--- NOTE | 2021-07-06 12:41 | PM.DS ---
DS: Admitting Diagnosis Discharge Date 07/06/2021 Admitting Diagnosis chest pain DS: Discharge Diagnosis Discharge Diagnosis (1) Chest pain: Qualifiers: Chest pain type: unspecified Qualified Code(s): R07.9 - Chest pain, unspecified Code(s): R07.9 - Chest pain, unspecified Status: Acute Assessment and Plan: The patient had an echo. Had pain to the right side of his chest and then it moved to the left side. The patient stated that he has pain with deep inspiration. Patient is Lexiscan was read as the following 1. Small region of mild reversible ischemia at the mid inferolateral and basilar inferolateral segments and adjacent small mild nonreversible infarct at the mid anterolateral segment. 2. Left ventricular ejection fraction measuring 62%. Chest CT was read as the following 1. Elevation right hemidiaphragm with associated compressive atelectasis in the right middle lobe. 2. A few <4 mm pulmonary nodules in the right upper lobe. If the patient is low risk for lung cancer, no follow-up is needed. If the patient is high risk (i.e., history of smoking or asbestos or significant radiation exposure), optional follow-up chest CT could be considered at 12 months. 3. Diffuse hepatic steatosis. This could possibly be due to acid reflux. (2) Chronic renal failure, stage 3 (moderate): Code(s): N18.30 - Chronic kidney disease, stage 3 unspecified Status: Chronic Assessment and Plan: We will get a renal ultrasound. And recheck labs in the a.m.. Was some mention about the patient being started on an Manoj or an Arb since the patient is diabetic. (3) Anemia: Code(s): D64.9 - Anemia, unspecified Status: Chronic Assessment and Plan: Continue to monitor. (4) BPH (benign prostatic hyperplasia): Code(s): N40.0 - Benign prostatic hyperplasia without lower urinary tract symptoms Status: Chronic Assessment and Plan: The patient had a TURP. And he was on doxazosin. (5) Hypertension: Code(s): I10 - Essential (primary) hypertension Status: Chronic Assessment and Plan: The diltiazem was discontinued and the patient was started on metoprolol. And the plan is to transition to Norvasc. (6) H/O gastroesophageal reflux (GERD): Code(s): Z87.19 - Personal history of other diseases of the digestive system Status: Chronic Assessment and Plan: IV pantoprazole. DS: Summary Hospital Course Reason for hospitalization: this is a 70-year-old male patient who has a past medical history of hypertension and diabetes. It sounds like his diabetes has not been well controlled a nor has his high blood pressure. The patient also stated that he has some acid reflux as well. He was on since PPIs for several years and just takes it occasionally when he starts to have some problems. The patient stated that he has not had problems with his acid reflux for quite some time. However yesterday he was just sitting in a chair watching TV knee developed some pain to his right shoulder and right arm. Histo had pain in his right side of his chest. The patient stated that he took famotidine and that helped. The patient was able to sleep during the night. However he woke up early this morning was having some pain to the left upper chest and left arm. Although the patient has no previous heart history he decided that he would have it checked out. The patient stated that he has some discomfort when he takes a deep breath. He has no prior history of having any PE. This is more of a pleuritic pain. 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 However the patient stated that he does not remember hurting himself or having any type of injury. Patient's H&H is 11.2 and 35.9. Patient's BUN is 36 creatinine 1.7. GFR is 48. Troponin levels are negative x3. Cardiology has been consulted. Lexiscan was read as the following. Small region of mi
== END 2021-07-06 13:35 | disposition home or self-care (01) ==
LOC: ANHED 08:25 → ANHCPC 11:37
PROVIDERS: Internal Medicine Cardiovascular Disease; Nurse Practitioner; Admitting Provider Internal Medicine; Emergency Provider Emergency Medicine; PCP Family Medicine; Visit Provider Family Medicine
DX: R07.9 Chest pain, unspecified (principal); I35.0 Nonrheumatic aortic (valve) stenosis; I12.9 Hypertensive chronic kidney disease with stage 1 through stage 4 chronic kidney disease, or unspecified chronic kidney disease; N18.30 Chronic kidney disease, stage 3 unspecified; E11.22 Type 2 diabetes mellitus with diabetic chronic kidney disease; R01.1 Cardiac murmur, unspecified; D64.9 Anemia, unspecified; N40.0 Benign prostatic hyperplasia without lower urinary tract symptoms; Z87.891 Personal history of nicotine dependence; Z79.84 Long term (current) use of oral hypoglycemic drugs; Z87.19 Personal history of other diseases of the digestive system
CPT/HCPCS: 36415; 71046; 71250; 76775; 78452; 80053; 80061; 82728; 82948; 83036; 83605; 83690; 83735; 84443; 84484; 85025; 85380; 85610; 85730; 86140; 93005; 93017; 93306; 96374; 96375; 96376; 99285; A9270; A9502; C9113; G0378; J2785

== ENCOUNTER 2022-02-01 00:34 | Emergency (ER) | payer OTHER, MEDICARE, SELFPAY ==
--- NOTE | ~2022-02-01 | CT_ITS ---
EXAMINATION: CT cervical spine wo con DATE: 02/01/2022 03:40 INDICATION: Recent fall. Bilateral neck pain. Right rib pain, pain between shoulder blades. TECHNIQUE: Computed tomography (CT) of the cervical spine was performed without intravenous contrast. Automated exposure control and iterative reconstruction technique were employed. Exam dose: 522.48 mGy-cm total exam DLP. COMPARISON: None FINDINGS: There is reversal cervical curvature which may be due to positioning or muscle spasm. C1 and C2 are normally aligned and the odontoid process is intact. There is prominent degenerative ch brian at the articulation of the C1 anterior arch and C2 odontoid process. Moderately prominent degenerative disc disease at C2-3, C3-4 and C4-5. Severe degenerative disc disease at C5-6 and C6-7. There is mild anterolisthesis at C4-5. Prominent degenerative change throughout the apophyseal joints of the cervical spine. Prominent uncov ertebral joint spurring throughout the cervical spine, particularly severe at C5-6 and C6-7. No fracture or dislocation or locked facet or prevertebral soft tissue swelling is detected. IMPRESSION: Reversal cervical curvature which may be due to muscle spasm Severe cervical spondylosis Reviewed, dictated and finalized at Location A. Reviewed, dictated and finalized at location A.
--- NOTE | ~2022-02-01 | CT_ITS ---
EXAMINATION: CT thoracic spine wo con DATE: 02/01/2022 03:41 INDICATION: Recent fall. Back pain. Pain between left and right scapula. TECHNIQUE: Computed tomography (CT) of the thoracic spine was performed without intravenous contrast. Automated exposure control and iterative reconstruction technique were employed. Exam dose: 1794.52 mGy-cm total exam DLP. COMPARISON: None FINDINGS: Severe degenerative disc disease at C5-6 C6-7. There is degenerative change throughout the thoracic spine, including diffuse degenerative disc disea se, diffuse idiopathic skeletal hyperostosis of the lower thoracic spine. No fracture or dislocation or bone destruction is detected. IMPRESSION: Degenerative changes of the thoracic spine; no fracture or bone destruction Reviewed, dictated and finalized at Location A. Reviewed, dictated and finalized at location A. IMPRESSION: Degenerative changes of the thoracic spine; no fracture or bone de struction
--- NOTE | ~2022-02-01 | XR_ITS ---
XR ribs RT 2V DATE: 02/01/2022 01:40 INDICATION: Fall. Upper posterior right rib pain. TECHNIQUE: PA chest. 3 views of the right ribs. COMPARISON: 07/05/2021 CT chest To PA and lateral chest FINDINGS: Moderately prominent chronic elevation of the right diaphragm. Normal heart size. No hilar or mediastinal enlargement. Aortic arch calcification. No right rib fracture or bone destruction is detected. IMPRESSION: No evidence of right rib fracture Reviewed, dictated and finalized at location A.
[2022-02-01 00:37] VITALS: BP 179/82; PULSE 71; RESP 20; TEMP 36.9; O2SAT 99
--- NOTE | 2022-02-01 02:44 | ED.FALL ---
HPI - Fall General Chief Complaint: Fall Stated Complaint: Neck pain Time Seen by Provider: 02/01/22 02:37 Source: RN notes reviewed History of Present Illness HPI Narrative: Patient presents emergency department from home for neck and back pain. 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 striking a piece of metal in between his back states that since that time has had pain in his lower neck as well as in his back between his shoulder blades the pain is worse with deep inspiration and movement of the torso he denies striking his head or any loss of consciousness he denies any chest pain shortness of breath abdominal pain nausea vomiting or any other symptoms denies any extremity injury states did not take anything for the pain today Related Data Home Medications Medication Instructions Recorded Confirmed doxazosin 4 mg tablet 4 mg DAILY 07/05/21 07/05/21 glipizide 10 mg tablet 10 mg PO BID 07/05/21 07/05/21 telmisartan 80 1 tablet PO DAILY 07/05/21 07/05/21 mg-hydrochlorothiazide 25 mg tablet empagliflozin 10 mg tablet mg 02/01/22 (Jardiance) semaglutide 02/01/22 02/01/22 Allergies Allergy/AdvReac Type Severity Reaction Status Date / Time No Known Allergies Allergy Verified 02/01/22 00:41 Review of Systems Review of Systems: Gen.: Denies fevers or chills Eyes: Denies eye pain or visual change ENT: Denies congestion Respiratory: Denies shortness of breath or cough CV: Denies chest pain or palpitations GI: Denies abdominal pain nausea, emesis Musculoskeletal: see HPI Neuro: Denies numbness, tingling, weakness or focal weakness Skin: Denies rash Except as documented, all other systems reviewed and negative [facility] Past Medical History Medical History Anemia Aortic valve stenosis, nonrheumatic BPH (benign prostatic hyperplasia) Chronic renal failure, stage 3 (moderate) Diabetes mellitus H/O gastroesophageal reflux (GERD) History of hematuria Hypertension Surgical History Surgical History (Updated 07/05/21 @ 15:50 by Nan Paniagua NP) H/O cataract extraction History of transurethral resection of prostate At [facility] Family History Family History Sibling Coronary artery disease Social History Social History Social History: Patient quit smoking approximately 20 years ago. The patient is lives with his . 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 The patient denies any marijuana alcohol or illicit drugs. His is the durable power energy attorney for healthcare. Code status: Full code Smoking packs per day: 1 Smoking cigarettes per day: 20.0 Smoking status: Former smoker Alcohol intake: never Substance use: never Substance use type: does not use Spiritual care concerns: Yes Exam Narrative: APPEARANCE: No acute distress, nontoxic, resting in bed EYES: EOMI, PERRL HEENT: Normocephalic, atraumatic,TMs clear bilaterally nares patent Neck: No midline tenderness palpation temporal patient bilateral perigee muscles C5-7 RESPIRATORY: No respiratory distress Clear to auscultation bilaterally with no rhonchi wheezing or rales. CARDIOVASCULAR: Regular rate and rhythm without murmurs rubs or gallops. ABDOMINAL: Soft, nontender, nondistended, no rebound or guarding MUSCULOSKELETAl: Moves all extremities. No clubbing, cyanosis or edema. Back: No midline thoracic lumbar tenderness palpation tender to palpation diffusely of the bilateral paravertebral muscles T2-T8 no tenderness of the lower lumbar spine NEURO: Awake and alert x 3. Following commands, speech normal, no focal deficits SKIN:: Warm, dry. No rashes lesions or abrasions PSYCHIATRIC: Normal affect/mood, Course Course Emergency Course: Discussed with patient results of workup and diagn
[2022-02-01 02:45] VITALS: BP 159/85; PULSE 66; RESP 18; O2SAT 100
[2022-02-01] MEDS: HYDROcodone/acetaminophen (*CRX) 5-325 MG TABLET 1 TAB PO (03:10)
[2022-02-01 05:29] VITALS: BP 170/86; PULSE 65; RESP 20; O2SAT 99
--- NOTE | 2022-02-01 05:30 | PC.NURSE ---
Stat rad fax came through and given to Dr. Champagne.
== END 2022-02-01 05:50 | disposition home or self-care (01) ==
PROVIDERS: Emergency Provider Emergency Medicine; PCP Family Medicine
DX: S16.1XXA Strain of muscle, fascia and tendon at neck level, initial encounter (principal); M54.6 Pain in thoracic spine; W01.198A Fall on same level from slipping, tripping and stumbling with subsequent striking against other object, initial encounter; I12.9 Hypertensive chronic kidney disease with stage 1 through stage 4 chronic kidney disease, or unspecified chronic kidney disease; E11.22 Type 2 diabetes mellitus with diabetic chronic kidney disease; N18.30 Chronic kidney disease, stage 3 unspecified; N40.0 Benign prostatic hyperplasia without lower urinary tract symptoms; D64.9 Anemia, unspecified; I35.0 Nonrheumatic aortic (valve) stenosis; K21.9 Gastro-esophageal reflux disease without esophagitis; Z87.891 Personal history of nicotine dependence; Z79.84 Long term (current) use of oral hypoglycemic drugs; Z79.82 Long term (current) use of aspirin
CPT/HCPCS: 71100; 72125; 72128; 99284; A9270

== ENCOUNTER 2022-02-02 19:50 | Emergency (ER) | payer OTHER, MEDICARE, SELFPAY ==
--- NOTE | ~2022-02-02 | CT_ITS ---
EXAMINATION: CT brain wo con DATE: 02/02/2022 20:47 INDICATION: possible minor head injury, pt does not remember if hit head . TECHNIQUE: Computed tomography (CT) of the head was performed without intravenous contrast. The mA wa s adjusted according to patient size. Iterative reconstruction technique was employed. The dose-lengt h product was 605.33 mGy-cm. COMPARISON: None FINDINGS: No acute intracranial hemorrhage or extra-axial fluid collection. No hydrocephalus, mass, or herniation. No acute ischemic infarct. Unremarkable dural venous sinus attenuation. No acute osseous abnormality. The aerated spaces are clear. Mild atrophy and chronic white matter change. Old right lacunar infarct. Atherosclerotic intracranial calcification. Bilateral lens replacements. IMPRESSION: No acute intracranial process. Reviewed, dictated and finalized at location K.
[2022-02-02 20:00] VITALS: BP 163/80; PULSE 78; RESP 20; TEMP 37.2; O2SAT 96
--- NOTE | 2022-02-02 20:39 | ED.GENADULT ---
HPI - General Adult General Chief complaint: Unspecified Stated complaint: Ear Infection, Balance off Time Seen by Provider: 02/02/22 20:19 History of Present Illness HPI narrative: Patient is a 71-year-old male who presents ER with dizziness. Patient evaluated in the ER yesterday after a fall. He had imaging performed of the spine. He is reporting that he did hit his head but did not lose consciousness. He is having aching over the backside of his head and into his left ear. Its worse with palpation. He is concerned they may have an ear infection given that he is having some dizziness and ear discomfort. No sinus congestion or sore throat or cough. He does take a baby aspirin. Related Data Home Medications Medication Instructions Recorded Confirmed doxazosin 4 mg tablet 4 mg DAILY 07/05/21 07/05/21 glipizide 10 mg tablet 10 mg PO BID 07/05/21 07/05/21 telmisartan 80 1 tablet PO DAILY 07/05/21 07/05/21 mg-hydrochlorothiazide 25 mg tablet empagliflozin 10 mg tablet mg 02/01/22 (Jardiance) semaglutide 02/01/22 02/01/22 Allergies Allergy/AdvReac Type Severity Reaction Status Date / Time No Known Allergies Allergy Verified 02/02/22 20:11 Review of Systems Review of Systems: All systems reviewed & are unremarkable except as noted in HPI and below Constitutional: Constitutional: Denies chills, Denies fever(s) and Reports headache(s) Eyes: Eyes: Denies change in vision and Denies diplopia ENT: Denies ear discharge, Reports otalgia, Denies hearing loss and Denies nasal congestion Neurologic: Reports dizziness, Denies syncope, Reports headache(s) and Denies focal weakness [facility], [facility] Past Medical History Medical History Anemia Aortic valve stenosis, nonrheumatic BPH (benign prostatic hyperplasia) Chronic renal failure, stage 3 (moderate) Diabetes mellitus H/O gastroesophageal reflux (GERD) History of hematuria Hypertension Surgical History Surgical History (Updated 07/05/21 @ 15:50 by Nan Paniagua NP) H/O cataract extraction History of transurethral resection of prostate At [facility] Family History Family History Sibling Coronary artery disease Social History Social History Social History: Patient quit smoking approximately 20 years ago. The patient is lives with his . 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 The patient denies any marijuana alcohol or illicit drugs. His is the durable power software educator for healthcare. Code status: Full code Smoking packs per day: 1 Smoking cigarettes per day: 20.0 Smoking status: Former smoker Alcohol intake: never Substance use: never Substance use type: does not use Spiritual care concerns: Yes Exam Narrative: GENERAL: Well-appearing, well-nourished, and in no acute distress. HEAD: Normocephalic, tender over posterior left scalp without swelling or evidence of infection/trauma. EYES: PERRL and EOMI. ENT: Mucous membranes moist. TMs normal bilaterally. Ear canals free of cerumen. Normal external ear. NECK: Supple. Tender palpation left paraspinal musculature of the neck. CHEST: Clear to auscultation. No respiratory distress. HEART: Regular rate and rhythm. Normal peripheral pulses. EXTREMITIES: Normal range of motion. No edema. NEURO: No focal deficits. Alert and oriented x3. PSYCH: Normal mood and affect. Course Course Emergency Course: Suspect patient has a concussion as well as muscular pain from his pump fall. He may continue take his hydrocodone's. We will give a work note. Vital Signs Vital signs: Vital Signs Temperature 99 F 02/02/22 20:00 Pulse Rate 78 02/02/22 20:00 Respiratory Rate 20 02/02/22 20:00 Blood Pressure 163/80 H 02/02/22 20:00 Pulse Oximetry 96 02/02/22 20:00 Oxygen Delivery
[2022-02-02 20:51] VITALS: BP 148/89; PULSE 73; RESP 15; O2SAT 97
[2022-02-02 21:59] VITALS: BP 117/76; PULSE 75; RESP 21; O2SAT 98
[2022-02-02 22:23] VITALS: BP 140/81; PULSE 77; RESP 16; O2SAT 97
== END 2022-02-02 22:26 | disposition home or self-care (01) ==
PROVIDERS: Emergency Provider Emergency Medicine; PCP Family Medicine
DX: S06.0X0A Concussion without loss of consciousness, initial encounter (principal); R51.9 Headache, unspecified; I35.0 Nonrheumatic aortic (valve) stenosis; E11.22 Type 2 diabetes mellitus with diabetic chronic kidney disease; I12.9 Hypertensive chronic kidney disease with stage 1 through stage 4 chronic kidney disease, or unspecified chronic kidney disease; N18.30 Chronic kidney disease, stage 3 unspecified; N40.0 Benign prostatic hyperplasia without lower urinary tract symptoms; K21.9 Gastro-esophageal reflux disease without esophagitis; Z98.49 Cataract extraction status, unspecified eye; Z90.79 Acquired absence of other genital organ(s); Z86.2 Personal history of diseases of the blood and blood-forming organs and certain disorders involving the immune mechanism; Z87.891 Personal history of nicotine dependence; Z79.82 Long term (current) use of aspirin; Z79.84 Long term (current) use of oral hypoglycemic drugs; W19.XXXA Unspecified fall, initial encounter
CPT/HCPCS: 70450; 99284

== ENCOUNTER 2022-02-19 07:53 | Outpatient (CLI) | payer MEDICARE, SELFPAY ==
--- NOTE | 2022-03-04 19:05 | WPDHOMESLEEP ---
Sleep Study - Home Unattended Date of Study: 02/19/22 Ordering Provider: Alec Sanchez MD Interpreting Provider: Paola Tan, DO Home Sleep Study Type: Watch PAT Height: 1.83 m Weight: 113.398 kg Body Mass Index: 33.9 Neck Circumference (inches): 18 [place]: 4 Reason for Sleep Study Witnessed apneas, daytime hypersomnia Sleep History The patient is a 71-year-old male with hypertension, stage 3 chronic kidney disease, diabetes, GERD, benign prostatic hyperplasia, coronary artery disease and history of tobacco use that had a sleep study ordered by his water and gas helper for evaluation of sleep apnea. The patient occasionally awakens from sleep short of breath. He occasionally awakens at night with heartburn, belching or cough. He constantly snores and is occasionally loud enough that others complain. He rarely wakes up gasping for air throughout the night. He frequently has breathing problems at night observed by himself or others. He denies sweating excessively at night. He denies having heart palpitations or irregular heartbeats during the night. He denies falling asleep during the day and while driving. He denies sleep paralysis, cataplexy and hypnagogic / hypnopompic hallucinations. He denies having trouble at school or work due to sleepiness. He denies feeling afraid of going to sleep. He rarely has nightmares. He denies remembering his dreams. He denies having thoughts racing through his mind. He denies feeling sad or depressed. He frequently has anxiety. He occasionally has muscular tension. He denies noticing parts of his body jerk. He denies kicking during the night. He denies having crawling and aching feelings in his legs. He rarely has leg pain during the night. He denies grinding his teeth during sleep and denies awakening with morning jaw pain. He is rarely bothered by pain during the day but never awakened by pain during the night. He occasionally wakes up feeling stiff in the morning. He rarely wakes up with sore achy muscles. He rarely wakes up with pain in the neck, spine or other joints. The patient goes to bed by 7-8 p.m. on weekdays and by 10:00 p.m. on weekends. He is able to fall asleep within 5 minutes. He wakes up twice throughout the night to urinate. He is able to fall back asleep within 5 minutes. He wakes up at 5:00 a.m. on both weekdays and weekends. He typically gets 9 hours of sleep per night. He will stay in bed for 10 minutes after waking up in the morning. He currently lives with his . He does not consume any caffeinated beverages within 2 hours of bedtime. He does not engage in physical exercise before bedtime. He will watch television before falling asleep. He denies taking naps in the afternoon or the evening. He drinks 1 cup of caffeinated beverage per day. He quit smoking cigarettes over 20 years ago. He denies alcohol and recreational drug use. [facility] Past Medical History Medical History Anemia Aortic valve stenosis, nonrheumatic BPH (benign prostatic hyperplasia) Chronic renal failure, stage 3 (moderate) Diabetes mellitus H/O gastroesophageal reflux (GERD) History of hematuria Hypertension Surgical History Surgical History H/O cataract extraction History of transurethral resection of prostate At [facility] Family History Family History Sibling Coronary artery disease Social History Social History Social History: Patient quit smoking approximately 20 years ago. The patient is lives with his . 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 The patient denies any marijuana alcohol or illicit drugs. His is the durable power regulatory attorney for healthcare. Code status: Full code Smoking packs p
[2022-03-04 19:14] VITALS: BMI 33.9
== END 2022-02-20 10:24 | disposition home or self-care (01) ==
LOC: ANHCSM 07:55
PROVIDERS: PCP Family Medicine; Visit Provider Internal Medicine Cardiovascular Disease
DX: G47.33 Obstructive sleep apnea (adult) (pediatric) (principal); G47.10 Hypersomnia, unspecified
CPT/HCPCS: 95800

== ENCOUNTER 2022-09-12 13:27 | Emergency (ER) | payer MEDICARE, SELFPAY ==
[2022-09-12] VITALS (16 sets, daily range): BP systolic 140–142; BP diastolic 70–76; PULSE 57–67; RESP 11–18; TEMP 36.4; O2SAT 98–100
--- NOTE | ~2022-09-12 | XR_ITS ---
EXAMINATION: XR chest 2V 09/12/2022 14:16 INDICATION: Chest pain PROCEDURE: 2 view chest COMPARISON: 07/05/2021 FINDINGS: The lungs are clear. The cardiomediastinal silhouette is within normal limits. There are no pleural effusions. There is no pneumothorax suspected. IMPRESSION: 1: NO ACUTE CARDIOPULMONARY DISEASE. Reviewed, dictated and finalized at location A.
--- NOTE | 2022-09-12 13:28 | ECG_ITS ---
Measurements Intervals [place] Rate: 64 P: 42 NH: 253 QRS: -15 QRSD: 106 T: 62 QT: 397 QTc: 412 Interpretive Statements SINUS RHYTHM WITH FIRST DEGREE AV BLOCK BORDERLINE VOLTAGE CRITERIA FOR LVH BORDERLINE ECG COMPARED TO ECG 07/05/2021 07:26:42 SLIGHTLY LONGER NH INTERVAL NO OTHER DIFFERENCE Electronically Signed On 09-12-2022 15:41:09 CDT by Tl Roberts M.D.
[2022-09-12 14:02] LABS: Basophils Percent Auto 0.5 % (0.2-1.2); Eosinophils Absolute Auto 0.2 K/mm3 (0-0.3); Hemoglobin 9.8 g/dL (14.0-18.0); Immature Granulocyte Absolute 0.01 K/mm3 (0.00-0.031); Immature Granulocyte Percent A 0.2 % (0-0.5); Lymphocytes Absolute Auto 0.99 K/mm3 (0.9-3.2); Lymphocytes Percent Auto 17.4 % (18.3-44.2); Mean Corpuscular HGB Conc 29.7 g/dl (32-36); Mean Corpuscular Volume 84.2 fl (80-100); Mean Platelet Volume 9.3 fl (7.4-10.4); Monocytes Absolute Auto 0.5 K/mm3 (0.1-0.6); Monocytes Percent Auto 9.5 % (2.6-8.5); Neutrophils Absolute Auto 3.9 K/mm3 (1.3-6.7); Neutrophils Percent Auto 68.4 % (45.5-73.1); Platelet Count Result 325 k/mm3 (150-375); Red Blood Count 3.92 M/mm3 (4.6-6.20); White Blood Count 5.7 K/mm3 (4.5-10.0)
[2022-09-12] MEDS: ASPIRIN 81 MG CHEWABLE TABLET 324 MG PO (14:02)
[2022-09-12 14:12] LABS: INR 1.1
[2022-09-12 14:13] LABS: Partial Thromboplastin Time 25.3 SECONDS (22.3-36.8)
[2022-09-12 14:23] LABS: Troponin I < 0.012 ng/mL (0.000-0.034)
[2022-09-12 14:29] LABS: Alanine Aminotransferase 31 U/L (6-50); Albumin Level 4.5 g/dL (3.5-5.1); Alkaline Phosphatase 64 U/L (38-126); Anion Gap 7 mmol/L (8-16); Aspartate Amino Transferase 37 U/L (17-59); Bilirubin,Total 0.7 mg/dL (0.2-1.3); Blood Urea Nitrogen 46 mg/dL (9-20); Calcium 8.9 mg/dL (8.4-10.2); Carbon Dioxide 26 mmol/L (22-30); Chloride 107 mmol/L (98-107); Estimated CRCL calculation 48 ml/min; Estimated Glomerular Filt Rate 48; Glucose 113 mg/dL (65-110); Lipase 392 U/L (23-300); Potassium 5.4 mmol/L (3.4-5.0); Sodium 140 mmol/L (137-145)
[2022-09-12 14:30] LABS: Platelet Estimate Adequate (Adequate); Schistocytes None Seen (NORMAL)
[2022-09-12 14:32] LABS: Anisocytosis 2+ (NORMAL); Hypochromasia 1+ (NORMAL)
--- NOTE | 2022-09-12 15:02 | ED.CHESTPAIN ---
HPI - Chest Pain General Chief Complaint: Chest Pain Stated Complaint: cp Time Seen by Provider: 09/12/22 13:54 History of Present Illness HPI narrative: 71-year-old male presenting here with chest pain that started around 5 this morning, he had a cardiac stent placed in Jul of this last year. Endorsing some very minimal dyspnea and BLEE. Related Data Home Medications Medication Instructions Recorded Confirmed doxazosin 4 mg tablet 4 mg DAILY 07/05/21 07/05/21 glipizide 10 mg tablet 10 mg PO BID 07/05/21 07/05/21 telmisartan 80 1 tablet PO DAILY 07/05/21 07/05/21 mg-hydrochlorothiazide 25 mg tablet empagliflozin 10 mg tablet mg 02/01/22 (Jardiance) semaglutide 02/01/22 02/01/22 Allergies Allergy/AdvReac Type Severity Reaction Status Date / Time No Known Allergies Allergy Verified 02/02/22 20:11 Review of Systems Review of Systems: CONST: No fever. HEENT: No sore throat C/V: Chest pain RESP: No cough GI: No abdominal pain, nausea or vomiting : No dysuria. M/S: Very mild bilateral lower extremity edema SKIN: No rash. NEURO: [No headache or focal numbness or weakness] PSYCH: [No depression] [facility] Past Medical History Medical History Anemia Aortic valve stenosis, nonrheumatic BPH (benign prostatic hyperplasia) Chronic renal failure, stage 3 (moderate) Diabetes mellitus H/O gastroesophageal reflux (GERD) History of hematuria Hypertension Surgical History Surgical History H/O cataract extraction History of transurethral resection of prostate At [facility] Family History Family History Sibling Coronary artery disease Social History Social History Social History: Patient quit smoking approximately 20 years ago. The patient is lives with his . 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 The patient denies any marijuana alcohol or illicit drugs. His is the durable power trademark attorney for healthcare. Code status: Full code Smoking packs per day: 1 Smoking cigarettes per day: 20.0 Smoking status: Former smoker Alcohol intake: never Substance use: never Substance use type: does not use Spiritual care concerns: Yes Exam Narrative: EXAMINATION OF ORGAN SYSTEMS/BODY AREAS: Constitutional: Vital signs per nursing GENERAL:[No acute distress, non-toxic appearing.] HEAD: Normal with no signs of head trauma. EYES: EOMI, conjunctiva normal ENT: Hearing grossly intact LUNGS: Nonlabored breathing. HEART: [Regular rate and rhythm] ABD: [Soft], [nontender to palpation] EXT: Normal range of motion SKIN: [No rashes or lesions.] NEURO: [Alert and oriented x 3. No gross focal sensory or strength deficits.] PSYCH: Normal affect Course Vital Signs Vital signs: Vital Signs Temperature 97.5 F L 09/12/22 13:29 Pulse Rate 67 09/12/22 13:29 Respiratory Rate 16 09/12/22 13:29 Blood Pressure 142/76 H 09/12/22 13:29 Pulse Oximetry 98 09/12/22 13:29 Oxygen Delivery Room Air 09/12/22 13:29 Temperature 97.5 F L 09/12/22 13:29 Pulse Rate 60 09/12/22 15:45 Respiratory Rate 14 09/12/22 15:45 Blood Pressure 142/76 H 09/12/22 13:29 Pulse Oximetry 100 09/12/22 15:45 Oxygen Delivery Room Air 09/12/22 15:05 MDM - Chest Pain MDM Narrative Medical decision making narrative: ED COURSE AND MEDICAL DECISION MAKIN-year-old male presenting with chest pain. EKG done in triage negative for acute ischemic changes. Cardiac workup is initiated. EKG: Performed in triage and interpreted by me. Normal sinus rhythm. Rate 64. Normal axis. [place] 253. QRS duration normal. QTc normal. No pathologic Q waves. No ST segment elevation or depression to suggest acute ischemia. No RV strain pattern. CXR reviewed by myself no obvious c
[2022-09-12 16:28] LABS: NT Pro B Type Natriuretic Pept 44 pg/mL (19.9-100)
[2022-09-12 16:45] LABS: Troponin I < 0.012 ng/mL (0.000-0.034)
== END 2022-09-12 17:40 | disposition home or self-care (01) ==
PROVIDERS: Emergency Provider Emergency Medicine; PCP Family Medicine
DX: R07.9 Chest pain, unspecified (principal); E11.22 Type 2 diabetes mellitus with diabetic chronic kidney disease; I12.9 Hypertensive chronic kidney disease with stage 1 through stage 4 chronic kidney disease, or unspecified chronic kidney disease; N18.30 Chronic kidney disease, stage 3 unspecified; N40.0 Benign prostatic hyperplasia without lower urinary tract symptoms; I35.0 Nonrheumatic aortic (valve) stenosis; D64.9 Anemia, unspecified; K21.9 Gastro-esophageal reflux disease without esophagitis; Z98.49 Cataract extraction status, unspecified eye; Z87.891 Personal history of nicotine dependence; Z79.84 Long term (current) use of oral hypoglycemic drugs; Z95.5 Presence of coronary angioplasty implant and graft; R06.00 Dyspnea, unspecified; R94.31 Abnormal electrocardiogram [ECG] [EKG]
CPT/HCPCS: 36415; 71046; 80053; 83690; 83880; 84484; 85025; 85610; 85730; 93005; 99284; A9270

== ENCOUNTER 2022-12-31 16:30 | Outpatient (RCR) | payer MEDICARE, SELFPAY ==
[2022-10-08 17:32] LABS: Glucose Point of Care 99 mg/dl (65-105)
[2022-10-08 17:32] LABS: Glucose Point of Care 102 mg/dl (65-105)
[2022-10-09 18:06] LABS: Glucose Point of Care 71 mg/dl (65-105)
[2022-10-09 18:06] LABS: Glucose Point of Care 83 mg/dl (65-105)
[2022-10-30 19:00] LABS: Glucose Point of Care 134 mg/dl (65-105)
[2022-10-30 19:00] LABS: Glucose Point of Care 143 mg/dl (65-105)
[2022-11-12 17:29] LABS: Glucose Point of Care 94 mg/dl (65-105)
[2022-11-19 16:36] LABS: Glucose Point of Care 101 mg/dl (65-105)
[2022-11-19 17:31] LABS: Glucose Point of Care 121 mg/dl (65-105)
[2022-11-20 18:09] LABS: Glucose Point of Care 101 mg/dl (65-105)
[2022-11-20 18:09] LABS: Glucose Point of Care 75 mg/dl (65-105)
[2022-12-17 17:31] LABS: Glucose Point of Care 108 mg/dl (65-105)
[2022-12-17 17:31] LABS: Glucose Point of Care 117 mg/dl (65-105)
== END 2023-01-19 18:35 | disposition home or self-care (01) ==
LOC: ANHCPREHAB 16:30
PROVIDERS: PCP Family Medicine; Visit Provider Internal Medicine Cardiovascular Disease
DX: Z95.5 Presence of coronary angioplasty implant and graft (principal)
CPT/HCPCS: 93798

== ENCOUNTER 2023-01-20 02:56 | Emergency (ER) | payer MEDICARE, SELFPAY ==
--- NOTE | ~2023-01-20 | XR_ITS ---
Right wrist Technique: PA, oblique, lateral, and ulnar deviation views were obtained. Clinical History: Pain Findings: No acute fracture or dislocation is seen. There is degenerative change of the radioscaphoid joint and DRUJ. Soft tissues are unremarkable. Impression: No acute fracture or dislocation. Degenerative change of the radioscaphoid joint and DRUJ. Reviewed, dictated and finalized at location . Impression: No acute fracture or dislocation. Degenerative change of the radioscaphoid joint and DRUJ.
[2023-01-20 02:59] VITALS: BP 145/78; PULSE 73; RESP 14; TEMP 36.6; O2SAT 100
[2023-01-20 04:28] VITALS: PULSE 71; RESP 16; O2SAT 95
[2023-01-20] MEDS: HYDROcodone/acetaminophen (*CRX) 5-325 MG TABLET 1 TAB PO (05:58)
[2023-01-20 06:03] LABS: Basophils Percent Auto 0.4 % (0.2-1.2); Eosinophils Absolute Auto 0.2 K/mm3 (0-0.3); Eosinophils Percent Auto 3.2 % (0-4.4); Hematocrit 32.7 % (42.0-52.0); Immature Granulocyte Absolute 0.02 K/mm3 (0.00-0.031); Immature Granulocyte Percent A 0.3 % (0-0.5); Lymphocytes Absolute Auto 0.83 K/mm3 (0.9-3.2); Lymphocytes Percent Auto 11.4 % (18.3-44.2); Mean Corpuscular HGB Conc 30.6 g/dl (32-36); Mean Corpuscular Hemoglobin 25.6 pg (26-34); Mean Corpuscular Volume 83.8 fl (80-100); Mean Platelet Volume 9.1 fl (7.4-10.4); Monocytes Absolute Auto 0.6 K/mm3 (0.1-0.6); Monocytes Percent Auto 7.9 % (2.6-8.5); Neutrophils Absolute Auto 5.6 K/mm3 (1.3-6.7); Neutrophils Percent Auto 76.8 % (45.5-73.1); Platelet Count Result 228 k/mm3 (150-375); Red Cell Distribution Width 16.8 % (11.5-14.5); White Blood Count 7.3 K/mm3 (4.5-10.0)
--- NOTE | 2023-01-20 06:10 | ED.GENADULT ---
HPI - General Adult General Chief complaint: Extremity Injury, Upper Stated complaint: R arm pain Time Seen by Provider: 01/20/23 05:33 History of Present Illness HPI narrative: Patient is a 72-year-old gentleman who presents the emergency department with chief complaint of right wrist pain. Patient states that for several days has been having pain in the right wrist area reports that it is painful and swollen tender to touch. The patient reports prior history of gout but has been in the lower extremities patient denies fever denies trauma. Related Data Home Medications Medication Instructions Recorded Confirmed doxazosin 4 mg tablet 4 mg DAILY 07/05/21 07/05/21 glipizide 10 mg tablet 10 mg PO BID 07/05/21 07/05/21 telmisartan 80 1 tablet PO DAILY 07/05/21 07/05/21 mg-hydrochlorothiazide 25 mg tablet empagliflozin 10 mg tablet mg 02/01/22 (Jardiance) semaglutide 02/01/22 02/01/22 Allergies Allergy/AdvReac Type Severity Reaction Status Date / Time No Known Allergies Allergy Verified 02/02/22 20:11 Review of Systems Review of Systems: A 10 system review of systems was completed on the patient and is negative except for what is stated in the HPI. Nursing and ancillary documentation was reviewed. [facility] Past Medical History Medical History Anemia Aortic valve stenosis, nonrheumatic BPH (benign prostatic hyperplasia) Chronic renal failure, stage 3 (moderate) Diabetes mellitus H/O gastroesophageal reflux (GERD) History of hematuria Hypertension Surgical History Surgical History H/O cataract extraction History of transurethral resection of prostate At [facility] Family History Family History Sibling Coronary artery disease Myocardial infarct Cerebrovascular accident Diabetes mellitus Hypertension Father Hypertension Mother Hypertension Diabetes mellitus Social History Social History Social History: Patient quit smoking approximately 20 years ago. The patient is lives with his . 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 The patient denies any marijuana alcohol or illicit drugs. His is the durable power trade mark attorney for healthcare. Code status: Full code Smoking packs per day: 1 Smoking cigarettes per day: 20.0 Years smoked: 35 Smoking pack-years: 35.00 Smoking status: Former smoker Tobacco type: cigarettes Alcohol intake: never Substance use: never Substance use type: does not use Spiritual care concerns: Yes Exam Narrative: GENERAL: Well-appearing, well-nourished, and in no acute distress. HEAD: Normocephalic, atraumatic. EYES: PERRLA and EOMI. ENT: Nares clear, no rhinorrhea or epistaxis. Mucous membranes moist. NECK: Supple. CHEST: Clear to auscultation. No respiratory distress. HEART: Regular rate and rhythm. No murmur heard. Normal peripheral pulses. ABDOMEN: Soft, nontender, nondistended, normal active bowel sounds. EXTREMITIES: Normal range of motion decreased range of motion of the right wrist tenderness to palpation no erythema no fluctuance. No edema. SKIN: Warm, dry, no rash. NEURO: No focal deficits. Alert and oriented x3. PSYCH: Normal mood and affect. Course Vital Signs Vital signs: Vital Signs Temperature 36.6 C 01/20/23 02:59 Pulse Rate 73 01/20/23 02:59 Respiratory Rate 14 01/20/23 02:59 Blood Pressure 145/78 H 01/20/23 02:59 Pulse Oximetry 100 01/20/23 02:59 Oxygen Delivery Room Air 01/20/23 02:59 Temperature 36.6 C 01/20/23 02:59 Pulse Rate 71 01/20/23 04:28 Respiratory Rate 16 01/20/23 04:28 Blood Pressure 145/78 H 01/20/23 02:59 Pulse Oximetry 95 01/20/23 04:28 Oxygen Delivery Room Air 01/20/23 04:
[2023-01-20 06:15] LABS: Alanine Aminotransferase 25 U/L (6-50); Alkaline Phosphatase 80 U/L (38-126); Anion Gap 10 mmol/L (8-16); Aspartate Amino Transferase 23 U/L (17-59); Bilirubin,Total 0.5 mg/dL (0.2-1.3); Blood Urea Nitrogen 36 mg/dL (9-20); CRP 0.5 mg/dL (<1.0); Calcium 8.6 mg/dL (8.4-10.2); Carbon Dioxide 22 mmol/L (22-30); Chloride 109 mmol/L (98-107); Estimated CRCL calculation 45 ml/min; Estimated Glomerular Filt Rate 45; Glucose 150 mg/dL (65-110); Sodium 141 mmol/L (137-145)
[2023-01-20 06:25] LABS: Erythrocyte Sedimentation Rate 134 mm/hr (0-20)
[2023-01-20 09:01] VITALS: BP 170/86; PULSE 75; RESP 16; TEMP 36.7; O2SAT 96
== END 2023-01-20 09:03 | disposition home or self-care (01) ==
PROVIDERS: Emergency Provider Emergency Medicine; PCP Family Medicine
DX: M25.531 Pain in right wrist (principal); I35.0 Nonrheumatic aortic (valve) stenosis; I10 Essential (primary) hypertension; E11.9 Type 2 diabetes mellitus without complications; N40.0 Benign prostatic hyperplasia without lower urinary tract symptoms; D64.9 Anemia, unspecified; K21.9 Gastro-esophageal reflux disease without esophagitis; Z98.49 Cataract extraction status, unspecified eye; Z87.891 Personal history of nicotine dependence; Z90.79 Acquired absence of other genital organ(s); Z79.82 Long term (current) use of aspirin; Z79.84 Long term (current) use of oral hypoglycemic drugs; Z79.85 Long-term (current) use of injectable non-insulin antidiabetic drugs
CPT/HCPCS: 36415; 73110; 80053; 85025; 85652; 86140; 99283; A9270

== ENCOUNTER 2024-01-19 02:14 | Emergency (ER) | payer MEDICARE, SELFPAY ==
--- NOTE | ~2024-01-19 | CT_ITS ---
Clinical Indication: Chest pain, elevated lipase CT Scan of the Chest, Abdomen, and Pelvis with Contrast: Technique: Contiguous sections were acquired throughout the chest, abdomen, and pelvis after intraven ous administration of 100 cc of Omnipaque 350. Dose reduction technique was used on this scan by uti lizing automated exposure control and iterative reconstruction technique. The dose-length product (DL P) was 2522.86 mGy-cm. COMPARISON: 07/05/2021 Findings: There is no evidence of any significant mediastinal, hilar or axillary lymphadenopathy. The mediastin al soft tissues appear normal. No pulmonary embolus identified. No aortic aneurysm or dissection seen . There is no evidence of pleural or pericardial effusion. 4 mm pleural-based nodule noted at the left lower lobe (axial image 76), unchanged. Lungs are otherwi se clear aside from mild dependent atelectatic changes. The liver, spleen, pancreas, gallbladder, and adrenal glands are within normal limits. Multiple bilat eral renal cysts are present. There is a 7 mm nonobstructing stone layering dependently within a prom inent right renal pelvis. An additional 7 mm nonobstructing right lower pole renal stone is also pres ent. 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 There are atherosclerotic calcifica tions of the aorta. No lymphadenopathy. No bowel obstruction or bowel wall thickening. There is no evidence to suggest acute appendicitis. Urinary bladder is unremarkable. No pelvic mass evident. No ascites. Impression: Nonobstructing right nephrolithiasis, as detailed above. 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 No significant abnormality seen in the chest. Reviewed, dictated and finalized at [facility]. Impression: Nonobstructing right nephrolithiasis, as detailed above. 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 No significant abnormality seen in the chest.
--- NOTE | ~2024-01-19 | XR_ITS ---
Clinical Indication: Chest pain PA and lateral views of the chest: Comparison: 09/12/2022 Findings: The lungs are clear, without evidence of focal consolidation or pleural effusion. Cardiome diastinal silhouette is within normal limits. Bones and soft tissues are unremarkable. Impression: Normal chest. Reviewed, dictated and finalized at location . Impression: Normal chest.
[2024-01-19 02:15] VITALS: BP 152/73; PULSE 74; RESP 18; TEMP 36.5; O2SAT 97
--- NOTE | 2024-01-19 02:15 | ECG_ITS ---
Test Date: 2024-01-19 02:20:17 Measurements Intervals [place] Rate: 74 P: 51 [place]: 243 QRS: -19 QRSD: 92 T: 76 QT: 378 QTc: 420 Interpretive Statements SINUS RHYTHM WITH FIRST DEGREE AV BLOCK MINIMAL VOLTAGE CRITERIA FOR LVH, CONSIDER NORMAL VARIANT [MEETS CRITERIA IN ONE OF: R(aVL), S(V1), R(V5), R(V5/V6)+S(V1)] NONSPECIFIC T-WAVE ABNORMALITY No previous ECG available for comparison Electronically Signed On 01-19-2024 15:41:53 CDT by Mitch Bobo M.D.
[2024-01-19] MEDS: ASPIRIN 81 MG CHEWABLE TABLET 324 MG PO (02:25)
[2024-01-19 04:56] VITALS: BP 168/92; PULSE 68; RESP 12; O2SAT 100
[2024-01-19 05:09] LABS: Basophils Percent Auto 0.6 % (0.2-1.2); Eosinophils Absolute Auto 0.3 K/mm3 (0-0.3); Eosinophils Percent Auto 4.6 % (0-4.4); Hematocrit 38.4 % (42.0-52.0); Hemoglobin 12.3 g/dL (14.0-18.0); Lymphocytes Absolute Auto 0.91 K/mm3 (0.9-3.2); Lymphocytes Percent Auto 16.9 % (18.3-44.2); Mean Corpuscular Hemoglobin 28.6 pg (26-34); Mean Corpuscular Volume 89.3 fl (80-100); Monocytes Absolute Auto 0.5 K/mm3 (0.1-0.6); Monocytes Percent Auto 9.1 % (2.6-8.5); Neutrophils Absolute Auto 3.7 K/mm3 (1.3-6.7); Neutrophils Percent Auto 68.8 % (45.5-73.1); Platelet Count Result 173 k/mm3 (150-375); Red Cell Distribution Width 14.3 % (11.5-14.5); White Blood Count 5.4 K/mm3 (4.5-10.0)
[2024-01-19 05:19] LABS: Prothrombin Time 14.2 Seconds (11.1-14.7)
[2024-01-19 05:20] LABS: Partial Thromboplastin Time 27.4 Seconds (22.3-36.8)
[2024-01-19 05:25] LABS: Alanine Aminotransferase 23 U/L (6-50); Alkaline Phosphatase 79 U/L (38-126); Anion Gap 8 mmol/L (4-12); Aspartate Amino Transferase 26 U/L (17-59); Bilirubin,Total 0.6 mg/dL (0.2-1.3); Blood Urea Nitrogen 27 mg/dL (9-20); Calcium 8.7 mg/dL (8.4-10.2); Carbon Dioxide 27 mmol/L (22-30); Chloride 105 mmol/L (98-107); D Dimer 1.55 ug/mL (<0.48); Estimated CRCL calculation 43 ml/min; Estimated Glomerular Filt Rate 42; Glucose 116 mg/dL (65-110); Lipase 420 U/L (23-300); Potassium 3.9 mmol/L (3.4-5.0); Sodium 140 mmol/L (137-145)
[2024-01-19 05:37] LABS: Troponin I < 0.012 ng/mL (0.000-0.034)
--- NOTE | 2024-01-19 06:26 | ED.CHESTPAIN ---
HPI - Chest Pain General Chief Complaint: Chest Pain Stated Complaint: chest pain Time Seen by Provider: 01/19/24 04:32 History of Present Illness HPI narrative: Patient is a 73-year-old male who presents to the emergency department this morning complaining of chest pain radiating to his back. Patient states that he has been having this pain for the past 5 days. He follows up with the primary care physician at [facility] and was informed that his chest pain was likely due to acid reflux but patient states that this felt a little bit different than his usual chest pain caused by his acid reflux. Patient has also seen Dr. Sanchez and had a cardiac workup and was told by his milk and cream grader that his chest pain is likely from acid reflux and not cardiac in nature. Patient denies any additional symptoms including nausea or vomiting, any fevers or chills, any abdominal pain, dysuria or hematuria. No additional symptoms or concerns at this time. Related Data Home Medications Medication Instructions Recorded Confirmed doxazosin 4 mg tablet 4 mg DAILY 07/05/21 07/05/21 glipizide 10 mg tablet 10 mg PO BID 07/05/21 07/05/21 telmisartan 80 1 tablet PO DAILY 07/05/21 07/05/21 mg-hydrochlorothiazide 25 mg tablet empagliflozin 10 mg tablet mg 02/01/22 (Jardiance) semaglutide 02/01/22 02/01/22 Allergies Allergy/AdvReac Type Severity Reaction Status Date / Time No Known Allergies Allergy Verified 02/02/22 20:11 Review of Systems Review of Systems: All systems are reviewed and are negative unless stated otherwise in the HPI. [facility] Past Medical History Medical History Anemia Aortic valve stenosis, nonrheumatic BPH (benign prostatic hyperplasia) Chronic renal failure, stage 3 (moderate) Diabetes mellitus H/O gastroesophageal reflux (GERD) History of hematuria Hypertension Surgical History Surgical History H/O cataract extraction History of transurethral resection of prostate At [facility] Family History Family History Sibling Coronary artery disease Myocardial infarct Cerebrovascular accident Diabetes mellitus Hypertension Father Hypertension Mother Hypertension Diabetes mellitus Social History Social History Social History: Patient quit smoking approximately 20 years ago. The patient is lives with his . 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 The patient denies any marijuana alcohol or illicit drugs. His is the durable power document review attorney for healthcare. Code status: Full code Smoking packs per day: 1 Smoking cigarettes per day: 20.0 Years smoked: 35 Smoking pack-years: 35.00 Smoking status: Former smoker Tobacco type: cigarettes Alcohol intake: never Substance use: never Substance use type: does not use Spiritual care concerns: Yes Exam Narrative: General: Alert, awake, afebrile, in no acute distress. HEENT: PERRL, no rhinorrhea, no post nasal drip, oropharynx clear. Cardiovascular: Regular rate and rhythm, no murmurs, rubs or gallops, no peripheral edema. Respiratory: Clear to auscultation bilaterally, no tachypnea, no wheezing, no rhonchi, no rubs, no respiratory distress. Abdomen: Soft, nontender, nondistended, no rebound, no guarding, no peritoneal signs. Musculoskeletal: No joint swelling or deformity, normal muscle tone. Skin: No rashes or petechia, no signs of infection. Neurological: Alert and oriented to person, place, and time. Follows all commands. No focal deficits, speech is clear and fluent. Course Vital Signs Vital signs: Vital Signs Temperature 97.7 F 01/19/24 02:15 Pulse Rate 74 01/19/24 02:15 Respiratory Rate 18 01/19/24 02:15 Blood Pressure 152/73 H 01/19/24 02:15 Pulse
== END 2024-01-19 06:31 | disposition home or self-care (01) ==
PROVIDERS: Emergency Provider Emergency Medicine; PCP Family Medicine
DX: I72.3 Aneurysm of iliac artery (principal); R07.9 Chest pain, unspecified; K21.9 Gastro-esophageal reflux disease without esophagitis; E11.22 Type 2 diabetes mellitus with diabetic chronic kidney disease; I12.9 Hypertensive chronic kidney disease with stage 1 through stage 4 chronic kidney disease, or unspecified chronic kidney disease; N18.30 Chronic kidney disease, stage 3 unspecified; I35.0 Nonrheumatic aortic (valve) stenosis; N40.0 Benign prostatic hyperplasia without lower urinary tract symptoms; D64.9 Anemia, unspecified; Z87.891 Personal history of nicotine dependence; Z98.49 Cataract extraction status, unspecified eye; Z90.79 Acquired absence of other genital organ(s); Z79.84 Long term (current) use of oral hypoglycemic drugs; Z79.82 Long term (current) use of aspirin; Z79.899 Other long term (current) drug therapy; I44.0 Atrioventricular block, first degree
CPT/HCPCS: 36415; 71046; 71275; 74177; 80053; 83690; 84484; 85025; 85380; 85610; 85730; 93005; 99284; A9270; Q9967

== ENCOUNTER 2024-08-01 16:00 | Emergency (ER) | payer MEDICARE, SELFPAY ==
--- NOTE | ~2024-08-01 | CT_ITS ---
EXAMINATION: CT brain wo con DATE: 08/01/2024 17:08 INDICATION: dizziness . TECHNIQUE: Computed tomography (CT) of the head was performed without intravenous contrast. The mA wa s adjusted according to patient size. Iterative reconstruction technique was employed. The dose-lengt h product was 681.00 mGy-cm. COMPARISON: 02/02/2022. FINDINGS: No acute intracranial hemorrhage or extra-axial fluid collection. No hydrocephalus, mass, or herniation. No acute ischemic infarct. Unremarkable dural venous sinus attenuation. No acute osseous abnormality. The aerated spaces are clear. Mild atrophy and chronic white matter change. Atherosclerotic intracranial calcification. Bilateral l ens replacements. Focal old right basal ganglia lacunar infarct. IMPRESSION: No acute intracranial process. Reviewed, dictated and finalized at location K.
[2024-08-01 16:07] VITALS: BP 150/70; PULSE 70; RESP 18; TEMP 36.4; O2SAT 100
[2024-08-01 16:47] VITALS: BP 143/76; PULSE 64; RESP 12; O2SAT 100
--- NOTE | 2024-08-01 16:51 | ED_ITS ---
HPI - Dizziness General Chief Complaint: Dizziness Stated Complaint: Sudden onset Dizziness BGL 203 Time Seen by Provider: 08/01/24 16:41 History of Present Illness HPI Narrative: Pt had episode of dizziness like room spinning while sitting at the computer about 3 hrs ago. Pt says that the feeling resolved about 45 minutes ago. Pt has no weakness or chest pain or vomiting. Pt has no CAMARENA. Pt has no history of similar symptoms. Pt scheduled for cardiac cath in morning. Related Data Home Medications ?Medication ?Instructions ?Recorded ?Confirmed ?Last Taken ?Type doxazosin 4 mg tablet 4 mg DAILY 07/05/21 07/05/21 Unknown History glipizide 10 mg tablet 10 mg PO BID 07/05/21 07/05/21 Unknown History telmisartan 80 1 tablet PO DAILY 07/05/21 07/05/21 Unknown History mg-hydrochlorothiazide 25 mg tablet empagliflozin 10 mg tablet mg 02/01/22 Unknown History (Jardiance) semaglutide 02/01/22 02/01/22 Unknown History Allergies Allergy/AdvReac Type Severity Reaction Status Date / Time No Known Allergies Allergy Verified 08/01/24 16:01 Review of Systems 2 Review of Systems: All systems reviewed & are unremarkable except as noted in HPI and below PMFSH Past Medical History Medical History Anemia Aortic valve stenosis, nonrheumatic BPH (benign prostatic hyperplasia) Chronic renal failure, stage 3 (moderate) Diabetes mellitus H/O gastroesophageal reflux (GERD) History of hematuria Hypertension Surgical History Surgical History H/O cataract extraction History of transurethral resection of prostate At [facility] Family History Family History Sibling Coronary artery disease Myocardial infarct Cerebrovascular accident Diabetes mellitus Hypertension Father Hypertension Mother Hypertension Diabetes mellitus Social History Social History Social History: Patient quit smoking approximately 20 years ago. The patient is lives with his . 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 The patient denies any marijuana alcohol or illicit drugs. His is the durable power health care attorney for healthcare. Code status: Full code Smoking packs per day: 1 Smoking cigarettes per day: 20.0 Years smoked: 35 Smoking pack-years: 35.00 Smoking status: Former smoker Tobacco type: cigarettes Alcohol intake: never Substance use: never Substance use type: does not use Spiritual care concerns: Yes Exam 2 Const: General: healthy appearing, no acute distress and alert Nutritional Appearance: well nourished Orientation/consciousness: patient oriented x3 Limitations: no limitations HENMT: Head: normal to inspection Eyes: Pupils: Equal, round and reactive pupils present EOM: EOMs intact bilaterally Neck: Neck: normal visual inspection Chest: Chest palpation & inspection: normal inspection of the chest Resp: Effort & Inspection: normal respiratory effort Auscultation: clear to auscultation bilaterally Cardio: Rate: regular rate Rhythm: regular rhythm GI: Auscultation: normal bowel sounds Skin: General skin exam: normal color Rashes: no rashes Wounds: no wounds Neuro: General: patient oriented x3, moves all extremities, no meningeal signs, no focal motor deficits and CN's II-XI intact bilaterally Cranial nerves: Yes Nystagmus not present Speech: normal speech Extrem: General: normal to inspection and no clubbing, cyanosis or edema Psych: Mental Status: mental status grossly normal Affect: normal affect Attitude: cooperative Course Vital Signs Vital signs: Vital Signs Temperature 97.6 F 08/01/24 16:07 Pulse Rate 70 08/01/24 16:07 Respiratory Rate 18 08/01/24 16:07 Blood Pressure 150/70 H 08/01/24 16:07 Pulse Oximetry 100 08/01/24 16:07 Oxygen Delivery Room Air 08/01/24 16:07 Temperature 97.6 F 08/01/24 16:07 Pulse Rate 62 08/01/24 17:00 Respiratory Rate 16 08/01/24 17:00 Blood Pressure 143/76 H 08/01/24 17:00 Pulse Oximetry 100 08/01/24 17:00 Oxygen Delivery Room Air 08/01/24 16:07 MDM - Dizziness MDM Narrative Medical decision making narrative: Pt presents with episode of dizziness like room spinning that lasted about 3 hrs and now resolved. sounds like vertigo but will do CP rule out due to history and get CT brain. all work up is neg. Pt asymptomatic now. home on meclizine in case it returns. if symptoms worsen or change pt will return. Lab Data 08/01/24 17:29 08/01/24 17:29 Labs: Lab Results 08/01/24 Range/Units 17:29 WBC 5.9 (4.5-10.0) K/mm3 RBC 4.31 L (4.6-6.20) M/mm3 Hgb 12.3 L (14.0-18.0) g/dL Hct 38.5 L (42.0-52.0) % MCV 89.3 (80-100) fl MCH 28.5 (26-34) pg MCHC 31.9 L (32-36) g/dl RDW 14.2 (11.5-14.5) % Plt Count 184 (150-375) k/mm3 MPV 8.8 (7.4-10.4) fl Immature Gran % (Auto) 0.2 (0-0.5) % Neut % (Auto) 78.8 H (45.5-73.1) % Lymph % (Auto) 11.5 L (18.3-44.2) % [place] % (Auto) 7.1 (2.6-8.5) % Eos % (Auto) 1.9 (0-4.4) % Baso % (Auto) 0.5 (0.2-1.2) % Lymph # (Auto) 0.68 L (0.9-3.2) K/mm3 [place] # (Auto) 0.4 (0.1-0.6) K/mm3 Eos # (Auto) 0.1 (0-0.3) K/mm3 Baso # (Auto) 0.0 (0.0-0.1) K/mm3 Abs Immat Gran (auto) 0.01 (0.00-0.031) K/mm3 Absolute Neuts (auto) 4.7 (1.3-6.7) K/mm3 Absolute Nucleated RBC 0.000 (0.0-0.012) K/mm3 Nucleated RBC % 0.0 (0.0-0.2) % PT 14.4 (11.1-14.7) Seconds INR 1.1 APTT 26.4 (22.3-36.8) Seconds Sodium 141 (137-145) mmol/L Potassium 4.1 (3.4-5.0) mmol/L Chloride 107 (98-107) mmol/L Carbon Dioxide 24 (22-30) mmol/L Anion Gap 10 (4-12) mmol/L BUN 38 H D (9-20) mg/dL Creatinine 1.85 H (0.7-1.3) mg/dL Estim Creat Clear Calc 41 ml/min Estimated GFR 36 L (59 - ) Glucose 135 H (65-110) mg/dL Calcium 8.7 (8.4-10.2) mg/dL Total Bilirubin 0.6 (0.2-1.3) mg/dL AST 21 (17-59) U/L ALT 26 (6-50) U/L Alkaline Phosphatase 77 (38-126) U/L Troponin I Pending Total Protein 8.0 (6.3-8.2) g/dL Albumin 4.1 (3.5-5.1) g/dL Discharge Plan Discharge Clinical Impression: Vertigo Patient Disposition: Home, Self-Care Condition: Improved Instructions: Antibiotic Form, Benign Paroxysmal Positional Vertigo (ED), Dizziness (ED) Patient Language: French Prescriptions: New meclizine [Antivert] 25 mg tablet,chewable 25 mg PO TID Qty: 14 0RF No Action doxazosin 4 mg tablet 4 mg DAILY glipizide 10 mg tablet 10 mg PO BID telmisartan-hydrochlorothiazid 80-25 mg tablet 1 tablet PO DAILY atorvastatin 40 mg Tablet 40 mg PO DAILY Qty: 30 0RF amlodipine [Norvasc] 5 mg Tablet 5 mg PO QAM Qty: 30 0RF aspirin [Children's Aspirin] 81 mg Tablet,Chewable 81 mg PO DAILY@0800 Qty: 30 0RF metoprolol tartrate 25 mg Tablet 25 mg PO Q12HR Qty: 60 0RF pantoprazole [Protonix] 40 mg tablet,delayed release (DR/EC) 40 mg PO QAM Qty: 30 0RF Jardiance 10 mg Tablet semaglutide hydrocodone-acetaminophen 5-325 mg tablet 1 tablet PO Q4H PRN (Reason: pain) Qty: 12 0RF indomethacin 50 mg capsule 50 mg PO TID PRN (Reason: pain) Qty: 30 0RF Rx Instructions: administer with food or milk hydrocodone-acetaminophen 5-325 mg tablet 1 tablet PO Q6H PRN (Reason: pain) 3 Days Qty: 12 0RF Follow-up/Referrals: Annemarie,Timoteo Peters MD [Primary Care Provider] -
--- NOTE | 2024-08-01 16:56 | ECG_ITS ---
Test Date: 2024-08-01 17:30:40 Measurements Intervals [place] Rate: 63 P: 36 MI: 248 QRS: -25 QRSD: 88 T: 53 QT: 417 QTc: 427 Interpretive Statements SINUS RHYTHM WITH FIRST DEGREE AV BLOCK BORDERLINE LEFT AXIS DEVIATION [QRS AXIS < -20] MODERATE VOLTAGE CRITERIA FOR LVH, CONSIDER NORMAL VARIANT [MEETS CRITERIA IN ONE OF: R(aVL), S(V1), R(V5), R(V5/V6)+S(V1)] NONSPECIFIC T WAVE ABNORMALITY Compared to ECG 01/19/2024 02:20:17 NO SIGNIFICANT CHANGES Electronically Signed On 08-02-2024 14:34:17 CDT by Mitch Bobo M.D.
[2024-08-01 17:00] VITALS: BP 143/76; PULSE 62; RESP 16; O2SAT 100
[2024-08-01 17:37] LABS: Basophils Percent Auto 0.5 % (0.2-1.2); Eosinophils Absolute Auto 0.1 K/mm3 (0-0.3); Eosinophils Percent Auto 1.9 % (0-4.4); Hematocrit 38.5 % (42.0-52.0); Hemoglobin 12.3 g/dL (14.0-18.0); Immature Granulocyte Absolute 0.01 K/mm3 (0.00-0.031); Immature Granulocyte Percent A 0.2 % (0-0.5); Lymphocytes Absolute Auto 0.68 K/mm3 (0.9-3.2); Lymphocytes Percent Auto 11.5 % (18.3-44.2); Mean Corpuscular HGB Conc 31.9 g/dl (32-36); Mean Corpuscular Hemoglobin 28.5 pg (26-34); Mean Corpuscular Volume 89.3 fl (80-100); Mean Platelet Volume 8.8 fl (7.4-10.4); Monocytes Absolute Auto 0.4 K/mm3 (0.1-0.6); Monocytes Percent Auto 7.1 % (2.6-8.5); Neutrophils Absolute Auto 4.7 K/mm3 (1.3-6.7); Neutrophils Percent Auto 78.8 % (45.5-73.1); Platelet Count Result 184 k/mm3 (150-375); Red Blood Count 4.31 M/mm3 (4.6-6.20); Red Cell Distribution Width 14.2 % (11.5-14.5); White Blood Count 5.9 K/mm3 (4.5-10.0)
[2024-08-01 17:47] LABS: Alanine Aminotransferase 26 U/L (6-50); Albumin Level 4.1 g/dL (3.5-5.1); Alkaline Phosphatase 77 U/L (38-126); Anion Gap 10 mmol/L (4-12); Aspartate Amino Transferase 21 U/L (17-59); Bilirubin,Total 0.6 mg/dL (0.2-1.3); Blood Urea Nitrogen 38 mg/dL (9-20); Calcium 8.7 mg/dL (8.4-10.2); Carbon Dioxide 24 mmol/L (22-30); Chloride 107 mmol/L (98-107); Estimated CRCL calculation 41 ml/min; Estimated Glomerular Filt Rate 36; Glucose 135 mg/dL (65-110); Potassium 4.1 mmol/L (3.4-5.0); Sodium 141 mmol/L (137-145)
[2024-08-01 17:51] LABS: INR 1.1; Prothrombin Time 14.4 Seconds (11.1-14.7)
[2024-08-01 17:52] LABS: Partial Thromboplastin Time 26.4 Seconds (22.3-36.8)
[2024-08-01 17:59] LABS: Troponin I < 0.012 ng/mL (0.000-0.034)
[2024-08-01 18:01] VITALS: BP 151/90; PULSE 66; RESP 14; O2SAT 100
--- OUTSIDE RECORDS SUMMARY | 2024-08-01 18:39 | XMS_ITS ---
Author Organization [facility] Address [address] [place], [place] [id number] Care Team Providers Care Tv News Director Name Role Phone VERNA MOORE Unavailable [phone] Timoteo Sharpe Unavailable Unavailable REASON FOR VISIT *General care Medications Medication SIG (Take, Route, Fr equency, Duration) Notes Start Date End Date Status Ciclopirox 8 % 1 application Lead Burner Helper ally Once a day for 90 days 11/05/2023 10/30/2024 Active Vital Signs Height 72.00 in 05/19/2024 Weight 260 lbs 05/19/2024 BMI 35.26 kg/m2 05/19/2024 Height-cm 182.88 cm 05/19/2024 Weight-kg 117.93 kg 05/19/2024 Encounters Encounter Location Date Provider Diagnosis [facility] [address] [place], [place] [id number] 05/19/2024 VERNA MOORE Onychomycosis B35.1 ; Pain in right toe(s) M79.674 ; Pain in left toe(s) M79.675 ; Atherosclerosis of [place] arteries of extremities with intermittent claudication, bilateral legs I70.213 ; Type 2 diabetes mellitus without complications E11.9 and Hyperkeratosis L85.9 Assessments Encounter Date Diagnosis (ICD Code) Assessment Notes Treatment Notes Treatment Clinical Notes Section Notes 05/19/2024 Onychomycosis (ICD-10 - B35.1) NAIL DEBRIDEMENT: Nails 1-5 Bilateral were debrided extensively with nail nippers and emery board, reducing length and girth to pink healthy tissue with any subungual debris and necrotic tissue removed Discussed various treatment options for fungal toenails including debridement, topical antifungals, oral antifungals, toenail avulsion, or toenail matrixectomy. The patient opted for treatment with Penlac. A prescription was dispensed 05/19/2024 Pain in right toe(s) (ICD-10 - M79.674) 05/19/2024 Pain in left toe(s) (ICD-10 - M79.675) 05/19/2024 Atherosclerosis of [place] arteries of extremities with intermittent claudication, bilateral legs (ICD-10 - I70.213) 05/19/2024 Type 2 diabetes mellitus without complications (ICD-10 - E11.9) DIABETIC FOOT CARE: Both feet were examined today. Diabetic preventive care provided as documented. Diabetic foot care education discussed today to including: daily foot inspections, appropriate protective shoe gear, and strict glycemic control. Patient to return to the office routinely for preventive diabetic foot care or sooner if patient notices any acute changes. 05/19/2024 Hyperkeratosis (ICD-10 - L85.9) Hyperkeratosis: The skin was prepped with isopropyl alcohol. Using a 15-blade scalpel, the hyperkeratotic skin lesions were sharply debrided down to healthy appearing skin. Plan Of Treatment Treatment Notes Assessment Notes Onychomycosis NAIL DEBRIDEMENT: Nails 1-5 Bilateral were debrided extensively with nail nippers and emery board, reducing length and girth to pink healthy tissue with any subungual debris and necrotic tissue removed Discussed various treatment options for fungal toenails including debridement, topical antifungals, oral antifungals, toenail avulsion, or toenail matrixectomy. The patient opted for treatment with Penlac. A prescription was dispensed Type 2 diabetes mellitus wit hout complications DIABETIC FOOT CARE: Both feet were examined today. Diabetic preventive care provided as documented. Diabetic foot care education discussed today to including: daily foot inspections, appropriate protective shoe gear, and strict glycemic control. Patient to return to the office routinely for preventive diabetic foot care or sooner if patient notices any acute changes. Hyperkeratosis Hyperkeratosis: The skin was prepped with isopropyl alcohol. Using a 15-blade scalpel, the hyperkeratotic skin lesions were sharply debrided down to healthy appearing skin. Next Appt Details Follow Up: 3 Months, Reason: at risk dm foot care Provider Name:VERNA C RONNIE ERIC, 09/22/2024 02:20:00 PM, [address], [facility], [place], [place], [id number], Progress Notes * DANA ALONZO jrDOB:[birth year] (73 yo M)Acc No.[id number]:05/19/2024 Patient: DANA ROBERTSON Provider: Horacio Moore DPM :1950 A ge:73 Y S ex:Male Date:05/19/2024 Address:[address] [place], [place] [id number] Subjective: * Chief Complaints: * * General care * HPI: H PI: General care P atient presents to the office for diabetic foot care. Patient states that their nails are thickened, elongated and painful. Patient states that it is aggravated by shoe gear. Onset is gradual., Patient is taking prescription blood thinners., Date last seen by Dr. Sharpe was February., Initials YA. * ROS: G eneral / Constitutional: Patient denies c hills, fatigue, fever. C ardiovascular: Patient denies c ongenital heart problems, palpatations, shortness of breath. P atient complains of h air loss on legs. M usculoskeletal: Patient denies o rthotic use, broken foot bone, muscle cramps. S kin: Patient complains of f ungal nails, dry skin, nail changes.? N eurologic: Patient denies s troke, loss of use of extremity, confusion. P atient complains of b urning/ tingling, numbness. * Medical History: * Surgical History: * Hospitalization/Major Diagno stic Procedure: * Family History: F ather: PRN - Father: :: Diabetes,,known absent . M other: PRN - Mother: . S ister: SIB - Sister: :: Diabetes,,known absent . * Social History: M igrated Social History: M igrated Social History: History of tobacco use : , Smoking Status : Former tobacco user. * Medications: T akingCiclopirox 8 % Solution 1 application Externally Once a day , stop date 10/30/2024Taking Ciclopirox 8 % Solution 1 application Externally Once a day , stop date 10/30/2024 Objective: * Vitals: W t:260lbs, Wt-k.93 kg, Ht: 72.00 in, Ht-cm: 182.88 cm, BMI:35.26Index, Body Surface Area: 2.45. * Examination: C onstitutional: Constitutional T he patient is awake, alert, well developed, well groomed and well nourished.. M usculoskeletal: Muscle Strength M uscle strength is 5/5 in regards to dorsiflexion, plantarflexion, inversion, and eversion in bilateral lower extremities.. Hammertoes F lexion contracture of the following digits:, 5th, Bilateral. Foot Structure T he foot structure is noted to be, normal, bilaterally. Gait T here is normal gait noted. N eurologic: Vibratory: n ormal, bilateral. [place] 5.07 monofilament d iminished protective sensation via 5.07 g swmf bilateral. Gross sensation G ross sensation is intact to light touch..? V ascular: Dorsalis pedis pulse: 1 /4, bilateral. Posterior tibial pulse: 0 /4, bilaterally. Capillary refill: l ess than 3 seconds, bilaterally. ? D ermatologic: Skin findings: S kin is thin, atrophic and lacking pedal hair.. Nail pathology: N ails 1-5 bilateral are elongated, thick, discolored, and dystrophic with subungual debris. They are painful to palpation. Hyperkeratotic Skin Lesion T here is evidence of hyperkeratosis d orsal aspect of the 5th digit b ilateral. Assessment: * Assessment: 1. O nychomycosis - B35.1 (Primary) 2 . P ain in right toe(s) - M79.674? 3. P ain in left toe(s) - M79.675 4 . A therosclerosis of [place] arteries of extremities with intermittent claudication, bilateral legs - I70.213 5 . T ype 2 diabetes mellitus without complications - E11.9 6 . H yperkeratosis - L85.9 Plan: * Treatment: 2. T ype 2 diabetes mellitus without complications Notes: DIABETIC FOOT CARE: Both feet were examined today. Diabetic preventive care provided as documented. Diabetic foot care education discussed today to including: daily foot inspections, appropriate protective shoe gear, and strict glycemic control. Patient to return to the office routinely for preventive diabetic foot care or sooner if patient notices any acute changes. 3. H yperkeratosis Notes: Hyperkeratosis: The skin was prepped with isopropyl alcohol. Using a 15-blade scalpel, the hyperkeratotic skin lesions were sharply debrided down to healthy appearing skin. * Procedure Codes: * Follow Up: 3 Months (Reason: at risk dm foot care) * Billing Information: * Visit Code: 88230 Office Visit, Est Pt., Level 3. 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 Patient states that their nails are thickened, elongated and painful. Patient states that it is aggravated by shoe gear. Onset is gradual., Patient is taking prescription blood thinners., Date last seen by Dr. Sharpe was February., Initials YA Examination Category Sub-Category Detail Notes Category Not es Dermatologic Skin findings: Skin is thin, at rophic and lacking pedal hair. Nail pathology: Nails 1-5 bilateral are elongated, thick, discolored, and dystrophic with subungual debris. They are painful to palpation Hyperkeratotic Skin Lesion There is evid ence of hyperkeratosis dorsal aspect of the 5th digit bilateral Neurologic Vibratory: normal, bilateral [place] 5.07 monofilament dimini shed protective sensation via 5.07 g swmf bilateral Gross sensation Gross sensation is i ntact to light touch. Vascular Dorsalis pedis pulse: 1/4, bilateral Capillary refill: less than 3 seconds, bilaterally Posterior tibial pulse: 0/4, bilaterally Musculoskeletal Muscle Strength Muscle strength is 5/5 in regards to dorsiflexion, plantarflexion, inversion, and eversion in bilateral lower extremities. Hammertoes Flexion contracture of the following digits:, 5th, Bilateral Foot Structure The foot structure i s noted to be, normal, bilaterally Gait There is normal gait noted Constitutional Constitutional The patient is a wake, alert, well developed, well groomed and well nourished.
--- OUTSIDE RECORDS SUMMARY | 2024-08-01 18:39 | XMS_ITS | Clinical Summary ---
Author Organization [facility] Facility Address [address] [place] [address] Care Team Providers Care Contact Printer Dry Film Name Role Phone Timoteo Shapre MD Primary Care Provider [phone] Medications calcitriol (ROCALTROL) 0.25 MCG capsule Take 1 capsule (0.25 mcg total) by mouth 3 times weekly: Thu, and Thu in the evening. 45 capsule 1 04/25/20 24 Active FeroSul 325 (65 Fe) MG tablet TAKE 1 TABLET BY MOUTH THREE TIMES A WEEK ON THURSDAY, WEDNESDAYS, AND FRIDAYS 45 tablet 07/22/19 25 Active SV Iron 325 (65 Fe) MG tablet TAKE 1 TABLET BY MOUTH THREE TIMES A WEEK ON THURSDAY, THURSDAY AND THURSDAY IN THE EVENINGS 45 tablet 04/25/20 24 025 Discontinued Encounters Date Type Department Care Team Description 07/22/2024 Office Communication [facility], [address] [phone] Gallo Rascon DO 07/22/2024 Refill [facility], [address] [place] [address] Gallo Rascon DO 06/16/2024 Orders Only [facility], [address] [place] [phone] Gallo Rascon DO from Last 3 Months Social History Tobacco Use Types Packs/Day Years Used Date Smoking Tobacco: Never Assessed Sex and Gender Information Value Date Recorded Sex Assigned at Not on file Legal Sex Male 1:48 PM EDT Gender Identity Not on file Sexual Orientation Not on file Last Filed Vital Signs Vital Sign Reading Time Taken Comments Blood Pressure 130/80 02/16/2024 1:50 PM CDT Pulse 68 02/16/2024 1:50 PM CDT Temperature 36.1 C (97 F) 02/16/2024 1:50 PM CDT Respiratory Rate 18 02/16/2024 1:50 PM CDT Oxygen Saturation 99% 02/16/2024 1:50 PM CDT Inhaled Oxygen Concentration - - Weight 125 kg (276 lb) 02/16/2024 1:50 PM CDT Height - - Body Mass Index - - Plan of Treatment Upcoming Encounters Date Type Department Care Team (Late st Contact Info) Description 09/13/2024 2:00 PM CDT Office Visit [facility], [facility] [address] [facility] [address] [place] [phone] Gallo Rascon DO [address] [facility] [address] [place] [address] Health Maintenance Due Date Last Done Comments Pneumococcal Vaccine: 65+ Years (1 of 2 - PCV) 11/12/1956 Colorectal Cancer Screening: Annual FOBT 1998 Colorectal Cancer Screening: Colonoscopy 1998 Colorectal Cancer Screening: Sigmoidoscopy 1998 Diabetes: Ophthalmology Exam 09/19/2022 Diabetes: Pedal Pulse Checked 09/19/2022 Diabetes: Sensory Foot Exam 09/19/2022 Diabetes: Visual Foot Exam 09/19/2022 Diabetes: Hemoglobin A1C 09/14/202406/16/2 025, 06/01/2024, 12/07/2023, Additional history exists Influenza Vaccine Completed 03/24/2024, , 01/21/2022, Additional history exists Hepatitis B Vaccine Aged Out No longe r eligible based on patient's age to complete this topic Procedures Procedure Name Priority Date/Time Associated Diagnosis Comments HEMOGLOBIN A1C Routine 06/16/2024 9:09 AM OCCUPATIONAL MEDICINE OFFICER PROTEIN / CREATININE RATIO, URINE Routine 06/16/2024 9:09 AM OCCUPATIONAL MEDICINE OFFICER VITAMIN D 25 HYDROXY Routine 06/16/2024 9:09 AM OCCUPATIONAL MEDICINE OFFICER PTH, INTACT Routine 06/16/2024 9:09 AM OCCUPATIONAL MEDICINE OFFICER CBC Routine 06/16/2024 9:09 AM OCCUPATIONAL MEDICINE OFFICER URINE ALBUMIN / CREATININE RATIO Routine 06/16/2024 9:09 AM OCCUPATIONAL MEDICINE OFFICER COMPREHENSIVE METABOLIC PANEL Routine 06/16/2024 9:09 AM OCCUPATIONAL MEDICINE OFFICER MAGNESIUM Routine 06/16/2024 9:09 AM OCCUPATIONAL MEDICINE OFFICER from Last 3 Months Results * (ABNORMAL) Protein, Total, Random Urine w/Creatinine (Protein/Creat Ratio) (06/16/2024 9:09 AM OCCUPATIONAL MEDICINE OFFICER) Creatinine, Ur 81 20 - 320 mg/dL See order comments Urine Protein/Creati nine Ratio 235(H) 25 - 148 mg/g creat See order comments Protein/Creati nine Ratio, Urine 0.235(H) 0.025 - 0.148 mg/mg creat See order comments Protein Urine Random 19 5 - 25 mg/dL See order comments 06/16/2024 9:0 9 AM OCCUPATIONAL MEDICINE OFFICER 06/16/2024 9:11 AM OCCUPATIONAL MEDICINE OFFICER Narrative Resulting Agency Comment Performing Organization Information: Site ID: MD Name: [facility] Address: [address] [address] Director: Vladimir Rodriguez MD us Gallo Rascon DO LAB URINE ORDERABLES Final R esult [facility] See order comments [place] [address] * Urine Albumin / Creatinine Ratio (06/16/2024 9:09 AM OCCUPATIONAL MEDICINE OFFICER) Creatinine, Ur 81 20 - 320 mg/dL See order comments Urine Microalbumin 0.9 See Note: mg/dL See order comments Comment: Reference Range: Reference Range Not established Microalb/Creat Ratio 11 <30 mg/g creat See order comments Comment: The ADA defines abnormalities in albumin excretion as follows: Albuminuria Category Result (mg/g creatinine) Normal to Mildly increased <30 Moderately increased 30-299 Severely increased > OR = 300 The ADA recommends that at least two of three specimens collected within a 3-6 month period be abnormal before considering a patient to be within a diagnostic category. 06/16/2024 9:09 AM OCCUPATIONAL MEDICINE OFFICER 06/16/2024 9:11 AM OCCUPATIONAL MEDICINE OFFICER Narrative Resulting Agency Comment Performing Organization Information: Site ID: TOM Name: [facility] Address: [address] [address] Director: Vladimir Rodriguez MD us Gallo Rascon DO LAB URINE ORDERABLES Final R esult [facility] See order comments [place] [address] * Vitamin D 25 Hydroxy (06/16/2024 9:09 AM OCCUPATIONAL MEDICINE OFFICER) Vitamin D, 25-OH, Total, IA 61 30 - 100 ng/mL See order comments Comment: Vitamin D Status 25-OH Vitamin D: Deficiency: <20 ng/mL Insufficiency: 20 - 29 ng/mL Optimal: > or = 30 ng/mL For 25-OH Vitamin D testing on patients on D2-supplementation and patients for whom quantitation of D2 and D3 fractions is required, the [facility] 25-OH VIT D, (D2,D3), LC/MS/MS is recommended: order code 63160 (patients >2yrs). See Note 1 Note 1 For additional information, please refer to http://education.PushPoint/faq/HCZ887 (This link is being provided for informational/ educational purposes only.) 06/16/2024 9:09 AM OCCUPATIONAL MEDICINE OFFICER 06/16/2024 9:11 AM OCCUPATIONAL MEDICINE OFFICER Narrative Resulting Agency Comment Performing Organization Information: Site ID: TOM Name: [facility] Address: [address] [address] Director: Vladimir Rodriguez MD us Gallo Rascon DO LAB BLOOD ORDERABLES Final R esult [facility] See order comments [place] [address] * (ABNORMAL) CBC (06/16/2024 9:09 AM OCCUPATIONAL MEDICINE OFFICER) WBC 4.3 3.8 - 10.8 Thousand/u L See order comments RBC 4.40 4.20 - 5.80 Million/uL See order comments Hemoglobin 12.5(L) 13.2 - 17.1 g/dL See order comments Hematocrit 39.9 38.5 - 50.0 % See order comments MCV 90.7 80.0 - 100.0 fL See order comments MCH 28.4 27.0 - 33.0 pg See order comments MCHC 31.3(L) 32.0 - 36.0 g/dL See order comments Comment: For adults, a slight decrease in the calculated MCHC value (in the range of 30 to 32 g/dL) is most likely not clinically significant; however, it should be interpreted with caution in correlation with other red cell parameters and the patient's clinical condition. RDW 13.2 11.0 - 15.0 % See order comments Platelets 185 140 - 400 Thousand/u L See order comments MPV 9.6 7.5 - 12.5 fL See order comments 06/16/2024 9:09 AM OCCUPATIONAL MEDICINE OFFICER 06/16/2024 9:11 AM OCCUPATIONAL MEDICINE OFFICER Narrative Resulting Agency Comment Performing Organization Information: Site ID: [place] Name: [facility] Address: [address] [address] Director: Vladimir Rodriguez us Gallo Rascon DO LAB BLOOD ORDERABLES Final R esult [facility] See order comments [place] [address] * (ABNORMAL) PTH, Intact (06/16/2024 9:09 AM OCCUPATIONAL MEDICINE OFFICER) Parathyroid Hormone, Intact 216(H) 16 - 77 pg/mL See order comments Comment: Interpretive Guide Intact PTH Calcium ------- Normal Parathyroid Normal Normal Hypoparathyroidism Low or Low Normal Low Hyperparathyroidism Primary Normal or High High Secondary High Normal or Low Tertiary High High Non-Parathyroid Hypercalcemia Low or Low Normal High 06/16/2024 9:09 AM OCCUPATIONAL MEDICINE OFFICER 06/16/2024 9:11 AM OCCUPATIONAL MEDICINE OFFICER Narrative Resulting Agency Comment Performing Organization Information: Site ID: [place] Name: [facility] Address: [address] [address] Director: Vladimir Rodriguez MD Glalo Rascon DO LAB BLOOD ORDERABLES Final R esult Performing Organization Address [facility] Co de Phone Number [facility] See order comments [place] [address] * Magnesium (06/16/2024 9:09 AM OCCUPATIONAL MEDICINE OFFICER) Magnesium 2.0 1.5 - 2.5 mg/dL See order comments 06/16/2024 9:09 AM OCCUPATIONAL MEDICINE OFFICER 06/16/2024 9:11 AM OCCUPATIONAL MEDICINE OFFICER Narrative Resulting Agency Comment Performing Organization Information: Site ID: [place] Name: [facility] Address: [address] [address] Director: Vladimir Rodriguez Gallo Rascon DO LAB BLOOD ORDERABLES Final R esult Performing Organization Address City/[facility]/ZIP Co de Phone Number [facility] See order comments [place] [address] * (ABNORMAL) Hemoglobin A1c (06/16/2024 9:09 AM OCCUPATIONAL MEDICINE OFFICER) Hemoglobin A1C 6.4(H) <5.7 % of total Hgb See order comments Comment: For someone without known diabetes, a hemoglobin A1c value between 5.7% and 6.4% is consistent with prediabetes and should be confirmed with a follow-up test. For someone with known diabetes, a value <7% indicates that their diabetes is well controlled. A1c targets should be individualized based on duration of diabetes, age, comorbid conditions, and other considerations. This assay result is consistent with an increased risk of diabetes. Currently, no consensus exists regarding use of hemoglobin A1c for diagnosis of diabetes for children. 06/16/2024 9:09 AM OCCUPATIONAL MEDICINE OFFICER 06/16/2024 9:11 AM OCCUPATIONAL MEDICINE OFFICER Narrative Resulting Agency Comment Performing Organization Information: Site ID: Name: [facility] Address: [address] [place] [address] Director: Vladimir Rodriguez Gallo Rascon DO LAB BLOOD ORDERABLES Final R esult [facility] See order comments [place] [address] * (ABNORMAL) Comprehensive Metabolic Panel (06/16/2024 9:09 AM OCCUPATIONAL MEDICINE OFFICER) Glucose 191(H) 65 - 99 mg/dL See order comments Comment: Fasting reference interval For someone without known diabetes, a glucose value >125 mg/dL indicates that they may have diabetes and this should be confirmed with a follow-up test. BUN 23 7 - 25 mg/dL See order comments Creatinine 1.75(H) 0.70 - 1.28 mg/dL See order comments eGFR CKD-EPI CR 2020 40(L) > OR = 60 mL/min/1.7 3m2 See order comments BUN/Creatinine Ratio 13 6 - 22 (calc) See order comments Sodium 141 135 - 146 mmol/L See order comments Potassium 4.1 3.5 - 5.3 mmol/L See order comments Chloride 106 98 - 110 mmol/L See order comments Bicarbonate (CO2) 28 20 - 32 mmol/L See order comments Calcium 8.2(L) 8.6 - 10.3 mg/dL See order comments Total Protein 7.0 6.1 - 8.1 g/dL See order comments Albumin 3.9 3.6 - 5.1 g/dL See order comments Globulin, Total 3.1 1.9 - 3.7 g/dL (calc) See order comments A/G Ratio 1.3 1.0 - 2.5 (calc) See order comments Total Bilirubin 0.6 0.2 - 1.2 mg/dL See order comments Alkaline Phosphatase 71 35 - 144 U/L See order comments AST (SGOT) 12 10 - 35 U/L See order comments ALT (SGPT) 14 9 - 46 U/L See orde r comments 06/16/2024 9:09 AM OCCUPATIONAL MEDICINE OFFICER 06/16/2024 9:11 AM OCCUPATIONAL MEDICINE OFFICER Narrative Resulting Agency Comment Performing Organization Information: Site ID: Name: [facility] Address: [address] [place] [address] Director: Vladimir Rodriguez us Gallo Rascon DO LAB BLOOD ORDERABLES Final R esult [facility] See order comments [place] [address] from Last 3 Months Insurance [address] [place] [phone] [employer] MCR ADV HMO ([id number]) Advance Directives Documents on File Type Date Recorded Patient Applied Statistician Expl anation Advance Care Planning 11/27/2022 10:25 AM Care Teams Contact Printer Dry Film Relationship Specialty Start Date End Date Timoteo Sharpe MD [address] [place] [address] PCP - General Family Medicine 09/15/22
--- OUTSIDE RECORDS SUMMARY | 2024-08-01 18:39 | XMS_ITS | Encounter Summary ---
Author Organization [facility] Healthcare Address [address] [place] [address] Care Team Providers Care Law Enforcement Director Name Role Phone Solitario Vaughn MD Unavailable [phone] Timoteo Sharpe MD Primary Care Provider Maria Del Rosario Murcia RD Unavailable Evens Geronimo MD Unavailable [phone] Encounter Details Date Type Department Care Team (Late st Contact Info) Description 08/01/[address] [facility] Medical Group Cardiology [address] [place] [address] Alec Sanchez MD [address] [facility] [address] [place] [address] Social History Tobacco Use Types Packs/Day Years Used Date Smoking Tobacco: Former Cigarettes 1 35 0 05/25/1965 - 05/25/2000 Passive Smoke Exposure: Past Smokeless Tobacco: Never Social Connection and Isolation Panel [NHANES] A nswer Date Recorded Frequency of Communication with Friends and Fami ly Not on file 03/06/2021 Frequency of Social Gatherings with Friends and Family Not on file 03/06/2021 Attends Nondenominational Services Not on file 03/06 Active Member of Clubs or Organizations Not on f ile 03/06/2021 Attends Club or Organization Meetings Not on meagan e 03/06/2021 Are you , , di vorced, , never , or living with a partner? 03/06/2021 AUDIT-C Answer Date Recorded Q1: How often do you have a drink containing alcohol? Never 06/18/2023 Q2: How many drinks containi ng alcohol do you have on a typical day when you are drinking? Patient does not drink Q3: How often do you have si x or more drinks on one occasion? Never 06/18/2023 Overall Financial Resource Strain (CARDIA) Answe r Date Recorded How hard is it for you to pa y for the very basics like food, housing, medical care, and heating? Not hard at all 01/25/2021 PHQ-2 Answer Date Recorded PHQ-2 Total Score (If total score is 3 or more points, staff should administer the PHQ-9) 0 06/08/2024 Hunger Vital Sign Answer Date Recorded Within the past 12 months, y ou worried that your food would run out before you got the money to buy more. Never true 01/26/20 21 Within the past 12 months, t he food you bought just didn't last and you didn't have money to get more. Never true 01/25/2021 PRAPARE - Transportation Answer Date Re corded In the past 12 months, has l ack of transportation kept you from medical appointments or from getting medications? No 07/2020 In the past 12 months, has l ack of transportation kept you from meetings, work, or from getting things needed for daily living? No 01/25/2021 PHQ-9 Answer Date Recorded PHQ-9 Total Score 20 04/04/2024 Personal Safety Answer Date Recorded Have you ever been in or are you currently in a harmful physical or emotional relationship or is someone making you feel afraid or unsafe? Denies 02/17/2024 Education Answer Date Recorded What is the highest level of school you have completed or the highest degree you have received? 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 * Telephone Encounter - Darleen Woods - 08/01/2024 9:28 AM CDT Pt spouse states pt is scheduled for [facility] tomorrow. States pt is diabetic and usually takes his insulin in the evening. Spouse wants to know if it is okay for pt to take his insulin this evening. Please advise, thank you. Contact: documented in this encounter Plan of Treatment Upcoming Encounters Date Type Department Care Team (Latest Contact Info) Description 08/02/2024 11:00 AM CDT Hospital Encounter [facility] Cardiac Catheterization Lab [address] [place] [address] Ubaldo Cantu MD [address] [phone] Chest pain, unspecified type 08/02/2024 11:00 AM CDT - 08/02/2024 12:30 PM CDT Surgery [facility] Cardiac Catheterization Lab [address] [place] [address] Ubaldo Cantu MD [address] [address] LEFT HEART CATHETERIZATION WITH CORONARY ANGIOGRAPHY AND WITH OR WITHOUT LEFT VENTRICULOGRAM [address] 08/09/2024 10:00 AM CDT Hospital Encounter [facility] Operating Room [address] [place] [address] [place] [address] [address] 08/09/2024 10:00 AM CDT - 08/09/2024 10:30 AM CDT Surgery [facility] Operating Room [address] [place] [address] [place] [address] [facility] [address] [place], [place] [id number] DRUG INDUCED SLEEP ENDOSCOPY Scheduled Procedures Name Priority Associated Diagnoses Date/Ti me DRUG INDUCED SLEEP ENDOSCOPY EVAL FLEX DIAG NUVIA (obstructive sleep apnea) 08/09/2024 10:00 AM CDT documented as of this encounter Visit Diagnoses Not on filedocumented in this encounter Care Teams Law Enforcement Director Relationship Specialty Start Date End Date Timoteo Sharpe MD PCP - General Family Medicine 03/08/21 [place] Consulting Physician Urology 01/23/[address] [facility] [place] [address] Dietitian 03/03/23 Evens Geronimo MD [address] [facility] [address] [place] [address] Referring Physician Orthopedic Surgery 03/24/24 [facility] [place], [phone] Physical Therapist Physical Therapy 04/04/22 documented as of this encounter
--- OUTSIDE RECORDS SUMMARY | 2024-08-01 18:39 | XMS_ITS ---
Author Organization [facility] Address [address] [place], [place] [id number] Care Team Providers Care Manager Background Name Role Phone VERNA MOORE Unavailable [phone] Timoteo Sharpe Unavailable Unavailable REASON FOR VISIT *General care Medications Medication SIG (Take, Route, Fr equency, Duration) Notes Start Date End Date Status Ciclopirox 8 % 1 application Architectural Representative ally Once a day for 90 days 11/05/2023 10/30/2024 Active Vital Signs Height 72.00 in 03/17/2024 Weight 260 lbs 03/17/2024 BMI 35.26 kg/m2 03/17/2024 Height-cm 182.88 cm 03/17/2024 Weight-kg 117.93 kg 03/17/2024 Encounters Encounter Location Date Provider Diagnosis [facility] [address] [place], [place] [id number] 03/17/2024 VERNA MOORE Onychomycosis B35.1 ; Pain in right toe(s) M79.674 ; Pain in left toe(s) M79.675 ; Atherosclerosis of [place] arteries of extremities with intermittent claudication, bilateral legs I70.213 ; Type 2 diabetes mellitus without complications E11.9 and Hyperkeratosis L85.9 Assessments Encounter Date Diagnosis (ICD Code) Assessment Notes Treatment Notes Treatment Clinical Notes Section Notes 03/17/2024 Onychomycosis (ICD-10 - B35.1) NAIL DEBRIDEMENT: Nails 1-5 Bilateral were debrided extensively with nail nippers and emery board, reducing length and girth to pink healthy tissue with any subungual debris and necrotic tissue removed Discussed various treatment options for fungal toenails including debridement, topical antifungals, oral antifungals, toenail avulsion, or toenail matrixectomy. The patient opted for treatment with Penlac. A prescription was dispensed 03/17/2024 Pain in right toe(s) (ICD-10 - M79.674) 03/17/2024 Pain in left toe(s) (ICD-10 - M79.675) 03/17/2024 Atherosclerosis of [place] arteries of extremities with intermittent claudication, bilateral legs (ICD-10 - I70.213) 03/17/2024 Type 2 diabetes mellitus without complications (ICD-10 - E11.9) DIABETIC FOOT CARE: Both feet were examined today. Diabetic preventive care provided as documented. Diabetic foot care education discussed today to including: daily foot inspections, appropriate protective shoe gear, and strict glycemic control. Patient to return to the office routinely for preventive diabetic foot care or sooner if patient notices any acute changes. 03/17/2024 Hyperkeratosis (ICD-10 - L85.9) Hyperkeratosis: The skin [...] ERIC, 09/22/2024 02:20:00 PM, [address], [facility], [place], [place], [id number], Progress Notes * DANA ALONZO [birth year]rDOB:[birth year] (73 yo M)Acc No.[id number]:03/17/2024 Patient: DANA ROBERTSON jr Provider: Horacio Moore DPM :1950 A ge:73 Y S ex:Male Date:03/17/2024 Address:[address] [place], [place] [id number] Subjective: * Chief Complaints: * * General care * HPI: H PI: General care P atient presents to the office for diabetic foot care. Patient is taking prescription blood thinners.Patients has possible corns on both pinky toes. Date last seen by Dr. Sharpe was December 2023., Initials HG. * ROS: G eneral / Constitutional: Patient [...] - Sister: :: Diabetes,,known absent . * Medications: T akingCiclopirox 8 % Solution [...] noted. N eurologic: Vibratory: n ormal, bilateral. [place]-Weinstin 5.07 monofilament d iminished protective sensation via [...] - M79.675 4 . A therosclerosis of [place] arteries of extremities with intermittent claudication, bilateral [...] care) * Billing Information: * Visit Code: 64173 Office Visit, Est Pt., Level 3. * Procedure Codes: * RVISOR LAMP SHADES Sign off status: Completed true * Provider: Horacio Moore DPM Date: Generated for Ranjeet barron/Jd/Jamshid on: 0 08/01/2024 06:39 PM CDT History and Physical Notes * HPI (History of Present Illness) Category Sub-Category Detail Notes Category Not es HPI General care Patient presents to the office for diabetic foot care. Patient is taking prescription blood thinners.Patients has possible corns on both pinky toes. Date last seen by Dr. Sharpe was December 2023., Initials HG Examination Category Sub-Category Detail Notes Category Not es Dermatologic Skin findings: Skin is thin, at rophic and lacking pedal hair. Nail pathology: Nails 1-5 bilateral are elongated, thick, discolored, and dystrophic with subungual debris. They are painful to palpation Hyperkeratotic Skin Lesion There is evid ence of hyperkeratosis dorsal aspect of the 5th digit bilateral Neurologic Vibratory: normal, bilateral [place]-We[place]in 5.07 monofilament dimini shed protective sensation via [...]
--- OUTSIDE RECORDS SUMMARY | 2024-08-01 18:39 | XMS_ITS ---
Author Organization [facility] Address [address] [place], [place] [id number] Care Team Providers Care Property Worker Name Role Phone VERNA MOORE Unavailable [phone] Timoteo Sharpe Unavailable Unavailable REASON FOR VISIT *General care Medications Medication SIG (Take, Route, Fr equency, Duration) Notes Start Date End Date Status Ciclopirox 8 % 1 application Application Support Analyst ally Once a day for 90 days 11/05/2023 10/30/2024 Active Encounters Encounter Location Date Provider Diagnosis [facility] [place] [address] [place], [place] [id number] 07/21/2024 VERNA MOORE Onychomycosis B35.1 ; Pain in right toe(s) M79.674 ; Pain in left toe(s) M79.675 ; 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, bilateral legs I70.213 ; Type 2 diabetes mellitus without complications E11.9 and Hyperkeratosis L85.9 Assessments Encounter Date Diagnosis (ICD Code) Assessment Notes Treatment Notes Treatment Clinical Notes Section Notes 07/21/2024 Onychomycosis (ICD-10 - B35.1) NAIL DEBRIDEMENT: Nails 1-5 Bilateral were debrided extensively with nail nippers and emery board, reducing length and girth to pink healthy tissue with any subungual debris and necrotic tissue removed Discussed various treatment options for fungal toenails including debridement, topical antifungals, oral antifungals, toenail avulsion, or toenail matrixectomy. The patient opted for treatment with Penlac. 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 Diabetic preventive care provided as documented. Diabetic foot care education discussed today to including: daily foot inspections, appropriate protective shoe gear, and strict glycemic control. Patient to return to the office routinely for preventive diabetic foot care or sooner if patient notices any acute changes. 07/21/2024 Hyperkeratosis (ICD-10 - L85.9) Hyperkeratosis: The skin [...] at risk dm foot care Provider Name:VERNA REYES, 09/22/2024 02:20:00 PM, [address], [address], [id number], Progress Notes * DANA ALONZO jrDOB:[birth year] (73 yo M)Acc No.[id number]:07/21/2024 Patient: DANA ROBERTSON jr Provider: Horacio Moore DPM :1950 A ge:73 Y S ex:Male Date:07/21/2024 Address:[address] [place] [address] Subjective: * Chief Complaints: * 1 . *General care. * HPI: H PI: General care P atient presents to the office for diabetic foot care. Patient states that their nails are thickened, elongated and painful. Patient states that it is aggravated by shoe gear. Onset is gradual., Patient is taking prescription blood thinners., Date last seen by Dr. Sharpe was 05/2024., Initials mca. * ROS: G eneral / Constitutional: Patient [...] urning/ tingling, numbness. * Medical History: * Medications: T aking Ciclopirox 8 % Solution 1 application Externally Once a day , stop date 10/30/2024 Objective: * Vitals: * Examination: C onstitutional: Constitutional T he [...] noted. N eurologic: Vibratory: n ormal, bilateral. [place]-Weinstin 5.07 monofilament d iminished protective sensation via [...] - M79.675 4 . A therosclerosis of three affiliated arteries of extremities with intermittent claudication, bilateral [...] debrided down to healthy appearing skin. * Follow Up: 3 Months (Reason: at risk dm foot care) * Billing Information: * Visit Code: * Procedure Codes: * Electronic signature of VERNA MOORE DPM on 08/01/2024 at 06:39 PM CDT Sign off status: Pending * Provider: Horacio Moore DPM Date: 0 07/21/2024 Generated for Ranjeet barron/Jd/Jamshid on: 0 08/01/2024 [...] Date last seen by Dr. Sharpe was 05/2024., Initials mca Examination Category Sub-Category Detail Notes Category Not es Dermatologic Skin findings: Skin is thin, at rophic and lacking pedal hair. Nail pathology: Nails 1-5 bilateral are elongated, thick, discolored, and dystrophic with subungual debris. They are painful to palpation Hyperkeratotic Skin Lesion There is evid ence of hyperkeratosis dorsal aspect of the 5th digit bilateral Neurologic Vibratory: normal, bilateral Denver-Weinstin 5.07 monofilament dimini shed protective sensation via [...]
--- OUTSIDE RECORDS SUMMARY | 2024-08-01 18:39 | XMS_ITS | Continuity of Care Document ---
Author Organization [facility] Address [address] [place] [address] [address] [place] [address] Phone Care Team Providers Care Ocular Care Technician Name Role Phone Valerio Gallo MD Unavailable Unavailable Medications Medication Instructions Dosage Effective Dates (start - stop) Status Comments ofloxacin 0.3 % eye drops apply 1 Drop by Ophthalmic route 4 times every day starting after surgery and continue for 1 week. 1 Drop - Active Procedures Procedure Date CATARACT SURG W/IOL, 1 STAGE CATARACT SURG W/IOL, 1 STAGE EYE EXAM, NEW PATIENT OPHTHALMIC BIOMETRY OPHTHALMIC BIOMETRY Advance Directives Directive Yes / No Effective Date File Name No Information Encounters Encounter Description Practice Location Reason(s) For Visit Diagnoses Date Provider Providers Copied on Encounter [facility], [address] [place] [address], [id number], tel:[phone] [facility] No Information 9 Sabino Luo. [address] [place] [address], [facility] [address], [place], [address], [place]. tel:[phone] Referring Provider: Valerio Leonard, [address] [place] [address] [address], [place], [address]. tel:[phone] [facility], [address] [place] [address], [id number], tel:[phone] [facility] No Information 9 Sabino Luo. [address] [place] [address], [facility] [address], [place], [address], [place]. tel:[phone] [facility], [address] [facility], [place], [place], [id number], [place] tel:[phone] [facility] No Information 9 Sabino Luo. [address] [facility], [address], [place], [address], [place]. tel:[phone] Referring Provider: Valerio Leonard, [address] [facility] [address], [place], [address]. tel:[phone] [facility], [address] [facility] [address] [address], [place], [place], [id number], [place] tel:[phone] Oph Consult [facility] No Information 9 Sabino Luo. [address] [facility], [address], [place], [address], [place]. tel:[phone] Referring Provider: Sherman Crain OD, [address] [place], [place], [id number]. tel:[phone] Family History Family Member Type Diagnosis Age At Onset No Information Payers Payer name Insurance type Covered libertarian ID Authoriza tion(s) Medicare Complete Advantage [facility] [id number] Social History Type Description Quantity Date Captured Comments Sex Male Smoking Status No Information Chief Complaint And Reason For Visit No Information Plan Of Treatment Date Type Action Status No Information History Of Present Illness Encounter Date Complaint History Of Prese nt Illness No Information Instructions Date Instruction Additional Infor mation No Information Assessments Type Assessment Date No Information
--- OUTSIDE RECORDS SUMMARY | 2024-08-01 18:40 | XMS_ITS | Referral Summary ---
Author Organization [facility] Address [address] [place] [address] Care Team Providers Care Medical Asst Name Role Phone Solitario Vaughn MD Unavailable [phone] Timoteo Sharpe MD Primary Care Provider Maria Del Rosario Murcia RD Unavailable [phone] Evens Geronimo MD Unavailable [phone] Encounters Date Type Department Care Team Description 08/01/2024 Telephone [facility] Medical Group Cardiology [address] [facility] [address] [place] [phone] Alec Sanchez MD 07/21/2024 Telephone [facility] Medical Group Primary Care at [address] [phone] Timoteo Sharpe MD 07/20/2024 Telephone [facility] Medical [facility] Cardiology [address] [facility] [address] [place] [phone] Alec Sanchez MD 07/05/2024 11:00 AM BOILER WELDER - 07/05/2024 11:59 PM BOILER WELDER Hospital Encounter [facility] Nutrition and Diabetic Education 1 [facility] [address] [place] [address] Discharge Disposition: Discharge to home or self care 07/01/2024 Telephone [facility] Medical Group Primary Care at [address] [phone] Joann Walton MA 06/08/2024 2:00 PM BOILER WELDER Office Visit [facility] Medical [facility] Primary Care at [address] [phone] Timoteo Sharpe MD Hypertension associated with diabetes (HCC) (Primary Dx); Hyperlipidemia associated with type 2 diabetes mellitus (HCC); Coronary artery disease of [place] artery of [place] heart with stable angina pectoris; Recurrent major depressive disorder, in full remission; Diabetic polyneuropathy associated with type 2 diabetes mellitus (HCC) 06/07/2024 1:30 PM BOILER WELDER Office Visit [facility] Cardiology at [address] [place] [phone] Alec Sanchez MD Hypertension associated with diabetes (HCC) (Primary Dx); Hyperlipidemia associated with type 2 diabetes mellitus (HCC); Coronary artery disease of [place] artery of [place] heart with stable angina pectoris; Stage 3b chronic kidney disease (HCC); Aneurysm of right common iliac artery 06/01/2024 10:11 AM BOILER WELDER - 06/01/2024 11:59 PM BOILER WELDER Hospital Encounter [address] [address] Benign prostatic hyperplasia with urinary obstruction; Obesity, diabetes, and hypertension syndrome (HCC); Stage 3b chronic kidney disease (HCC); Hyperlipidemia associated with type 2 diabetes mellitus (HCC) Discharge Disposition: Discharge to home or self care 06/01/2024 10:00 AM BOILER WELDER Lab [facility] Outpatient Lab at [address] [phone] Hypertension associated with diabetes (HCC) (Primary Dx) 06/01/2024 Telephone [facility] Primary Care at [address] [phone] Timoteo Sharpe MD Additional Services Or Orders 05/26/2024 1:40 PM BOILER WELDER Office Visit [facility]) - [facility] [address] [place] [address] Medical Office Building [address] [place] [address] Isha Yang MD Obstructive sleep apnea (Primary Dx); BMI 40.0-44.9, adult ([facility]) 05/19/2024 Telephone [facility] Medical Group Primary Care at [address] [phone] Timoteo Sharpe MD Medication Request 05/19/2024 Nurse Triage [facility] Primary Care at [address] [phone] Timoteo Sharpe MD 05/13/2024 11:45 AM BOILER WELDER Office Visit [facility] Group Sleep Medicine at [address] [place] [address] Tatiana Mejia MD Obstructive sleep apnea (Primary Dx); Hypersomnia; Obesity, unspecified class, unspecified obesity type, unspecified whether serious comorbidity present 05/13/2024 10:30 AM BOILER WELDER - 05/13/2024 11:59 PM BOILER WELDER Hospital Encounter [facility] Nutrition and Diabetic Education 1 [facility] [address] [place] [address] Murcia, Maria Del Rosario Chow RD Discharge Disposition: Discharge to home or self care from Last 3 Months Allergies No known active allergies Medications aspirin 81 mg chewable tablet Take 1 tablet (81 mg total) by mouth daily 90 tablet 3 08/02/19 22 025 Active latanoprost (XALATAN) 0.005 % ophthalmic solution Administer 1 drop into both eyes nightly 02/20/20 22 Active timolol (TIMOPTIC) 0.5 % ophthalmic solution Administer into both eyes daily 10 mL 1 02/13/20 23 Active ferrous sulfate 325 mg (65 mg of elemental iron) tablet Take 1 tablet (325 mg total) by mouth 06/09/19 24 Active empagliflozin (Jardiance) 25 mg tabletIndication s:type 2 diabetes mellitus Take 1 tablet (25 mg total) by mouth daily 90 tablet 3 08/02/19 24 Active pen needle, diabetic (TRUEplus Pen Needle) 31 gauge x 5/16 needle For use with once daily Toujeo dosing 100 each 11 12/08/19 24 Active lancets (Accu-Chek Softclix Lancets) miscIndications: Obesity, diabetes, and hypertension syndrome (HCC) Activ e clotrimazole-bet amethasone (LOTRISONE) creamIndications :Rash Apply topically 2 (two) times a day 30 g 1 12/17/19 24 Active calcitRIOL (ROCALTROL) 0.25 mcg capsule TAKE 1 CAPSULE BY MOUTH 3 TIMES WEEKLY, THURSDAY, THURSDAY, AND THURSDAY IN THE EVENING 01/15/20 24 Active atorvastatin (LIPITOR) 40 mg tablet Take 1 tablet by mouth once daily 100 tablet 1 02/09/20 24 Active pregabalin (LYRICA) 50 mg capsuleIndicatio ns:Diabetic Peripheral Neuropathy Take 1 capsule (50 mg total) by mouth 2 (two) times a day 60 capsule 1 03/24/20 24 Active insulin glargine (BASAGLAR) 100 unit/mL (3 mL) pen for injectionIndicat ions:Obesity, diabetes, and hypertension syndrome (HCC) Inject 10 Units under the skin nightly 1.5 mL 3 03/24/20 24 Active ticagrelor (BRILINTA) 90 mg tablet Take 1 tablet (90 mg total) by mouth 2 (two) times a day 180 tablet 3 03/28/20 24 Active metoprolol tartrate (LOPRESSOR) 25 mg immediate release tablet Take 1 tablet by mouth twice daily 180 tablet 05/16/20 24 Active isosorbide mononitrate ER (IMDUR) 30 mg 24 hr tabletIndication s:Coronary artery disease of [place] artery of [place] heart with stable angina pectoris Take 1 tablet (30 mg total) by mouth daily 30 tablet 06/07/19 25 026 Active semaglutide (OZEMPIC) 2 mg/dose (8 mg/3 mL) pen injector injectionIndicat ions:Hypertensio n associated with diabetes (HCC),Hyperlipid emia associated with type 2 diabetes mellitus (HCC) Inject 2 mg under the skin once a week 3 mL 11 06/08/19 25 Active glipiZIDE (GLUCOTROL) 10 mg tabletIndication s:Obesity, diabetes, and hypertension syndrome (HCC) TAKE 1 TABLET BY MOUTH TWICE DAILY BEFORE BREAKFAST AND BEFORE LUNCH 180 tablet 06/21/19 25 Active amLODIPine (NORVASC) 5 mg tabletIndication s:Hypertension associated with diabetes (HCC) TAKE 1 & 2 (ONE & ONE-HALF) TABLETS BY MOUTH IN THE MORNING 135 tablet 07/13/[address] (PROTONIX) 40 mg EC tabletIndication s:Gastroesophage al reflux disease without esophagitis Take 1 tablet by mouth once daily 90 tablet 07/13/19 25 Active doxazosin (CARDURA) 4 mg tablet Take 1 tablet by mouth nightly 90 tablet 07/18/19 25 Active telmisartan (MICARDIS) 80 mg tabletIndication s:Obesity, diabetes, and hypertension syndrome (HCC) Take 1 tablet by mouth once daily 30 tablet 07/18/19 25 Active amLODIPine (NORVASC) 5 mg tabletIndication s:Hypertension associated with diabetes (HCC) Take 1.5 tablets (7.5 mg total) by mouth every morning 135 tablet 3 08/02/[address] (PROTONIX) 40 mg EC tabletIndication s:Gastroesophage al reflux disease without esophagitis Take 1 tablet (40 mg total) by mouth daily 90 tablet 1 01/28/20 24 025 Discontinued doxazosin (CARDURA) 4 mg tablet Take 1 tablet by mouth nightly 90 tablet 04/20/20 24 025 Discontinued telmisartan (MICARDIS) 80 mg tabletIndication s:Obesity, diabetes, and hypertension syndrome (HCC) Take 1 tablet by mouth once daily 30 tablet 06/17/19 25 025 Discontinued Active Problems Problem Noted Date Diagnosed Date Chest pain 07/20/2024 Moderate episode of recurrent major depressive d isorder 06/08/2024 Mood disorder 04/04/2024 Aneurysm of right common iliac artery 01/21/2024 Assessment & Plan (02/22/2024 3:14 PM CDT): 3.1-3.2 cm right common iliac artery aneurysms. Discussed findings with the patient and his spouse, we discussed management of isolated iliac artery aneurysms including the recommendation for intervention at 3.5 cm or with evidence of rapid growth. We discussed at its current size the recommendation for ongoing surveillance with repeat CTA abdomen pelvis in 6 months. Continue risk factor modification with ASA statin therapy good blood pressure control. Assessment & Plan (02/03/2024 11:45 AM CDT): Will obtain CT imaging from outside institution. We will plan for patient to follow-up in 2 weeks for discussion regarding results, and further surgical procedural intervention. Continue medication regimen at this point. No activity restrictions, limitations Assessment & Plan (01/28/2024 11:28 AM CDT): Referral was placed already to Vascular. Information given to patient for incidental finding of 3.3 cm aneurysm of the right common iliac artery. Heartburn 09/29/2023 Encounter for Medicare annual wellness exam 03/25 Assessment & Plan (04/08/2023 10:59 AM BOILER WELDER): A(n) yearly Medicare Annual Wellness Visit has been performed today. Esau Joseph is not up to date on screening tests. He is in need of Diabetic eye exam and Colon cancer screening. He is not up to date on needed preventative vaccinations; He is in need of Covid-19 (booster). We discussed healthy lifestyle habits, educational material has been given. Medications reviewed, changes documented as per the medical record and discussed with patient along with risks vs benefits. Return in 3 months Right arm pain 01/20/2023 Abnormal stress test 06/13/2022 Blister of thumb 06/10/2022 Gastroesophageal reflux disease 06/10/2022 Assessment & Plan (01/28/2024 11:27 AM CDT): Started on Pantoprazole 20 mg x 09/2023 per Cardiology. Likely the culprit for his symptoms he was experiencing, does have mild epigastric tenderness. Will increase the Pantoprazole to 40 mg daily. Trigger foods discussed with patient. Osteoarthritis 06/10/2022 Otitis externa 06/10/2022 Pain in lower limb 06/10/2022 Pes planus 06/10/2022 Pityriasis versicolor 06/10/2022 Uncontrolled type 2 diabetes mellitus 06/10/2022 Upper respiratory infection 06/10/2022 Sprain of left rotator cuff capsule 04/05/2022 Assessment & Plan (04/05/2022 1:22 PM BOILER WELDER): Dizziness was likely vasovagal, but we will have to monitor. Meclizine PRN will be sent The MRI does not show any tears, but a lot of inflammation yet still present. ROM has improved. I am changing the return date to bring into conformity. Will extend PT to end of the year, at least (24 more visits) There is overall improvement, but we are not yet ready to return. NUVIA (obstructive sleep apnea) 03/25/2022 Fall 02/07/2022 Assessment & Plan (02/07/2022 11:40 AM CDT): Adding cyclobenzaprine I would recommend trying to use tylenol as mainstay of treatment, and hold hydrocodone-Apap for breakthrough (it has tylenol in it, so be careful taking it within 6 hours of regular tylenol) May use ice, heat alternating (20 minutes per) 3-4 times a day Rest, gentle stretching is allowed, but please rest Witnessed episode of apnea 01/21/2022 Hypersomnolence 01/21/2022 Coronary artery disease of n ative artery of [place] heart with stable angina pectoris 01/21/2022 Hyperlipidemia associated with type 2 diabetes dorian johnson 01/21/2022 Assessment & Plan (02/22/2024 3:14 PM CDT): Stable continue Lipitor Assessment & Plan (12/12/2022 5:03 PM CDT): LDL 85 mg/dl, in good shape Continuing atorvastatin No side effects reported. Hypertension associated with diabetes 12/05/2021 Assessment & Plan (12/12/2022 5:02 PM CDT): BP looks fine A1c is improved to 7.1% Refilled (resampled) Jardiance 25 mg I note the renal function is improved since August Continue close adherence to Maria Del Rosario's recommendations Assessment & Plan (09/12/2022 4:52 PM CDT): Awaiting a1c (may get Thursday on the day of the farm tractor mechanic appointment) Continuing current regimen, though BP is mildly elevated Assessment & Plan (06/15/2022 12:55 PM BOILER WELDER): The a1c is improving nicely, now at 6.7% Rybelsus has become prohibitively expensive. Will discontinue Continue glipizide Will want to increase Jardiance to 25 mg daily; we have samples we can give for short term until we can get refill in to pharmacy Will increase amlodipine to 7.5 mg daily (1-1/2 tab a day)-- use a pill-cutter. If it is not feasible even with pill cutter, I will send in 2.5 mg tabs to bring the dose up Obesity, diabetes, and hypertension syndrome Assessment & Plan (12/17/2023 12:00 PM CDT): BMI Follow-up includes: nutrition counseling, exercise counseling, and education provided. Blood Pressure Follow-up: Lifestyle modifications education provided on sodium reduction, increase physical activity, reduce alcohol consumption, and weight reduction. Assessment & Plan (06/23/2023 12:43 PM BOILER WELDER): A1c down slightly, still above 8% Will resume Rybelsus as sample Discussed metformin; given the creatinine is still above 1.4, I am reticent to resume though GFR remaining above 30, if there is a possible alternative Cholesterol is controlled, continuing atorvastatin BP is controlled BMI Follow-up includes: nutrition counseling, exercise counseling, and education provided. Blood Pressure Follow-up: Lifestyle modifications education provided on sodium reduction, increase physical activity, reduce alcohol consumption, and weight reduction. Assessment & Plan (03/19/2023 12:31 PM CDT): BMI Follow-up includes: nutrition counseling, exercise counseling, and education provided. Blood Pressure Follow-up: Lifestyle modifications education provided on sodium reduction, increase physical activity, reduce alcohol consumption, and weight reduction. Continuing continuous glucose monitor hopefully it will stay adhere to his skin. Continuing glipizide, Jardiance, metoprolol, Micardis, and amlodipine He also continues atorvastatin Awaiting ortho follow-up for his TFCC tear Assessment & Plan (12/05/2021 6:16 PM CDT): BMI Follow-up includes: nutrition counseling, exercise counseling and education provided. Starting Rybelsus, in place of Tradjenta. Take as directed, and when we finish we will go up to the 7 mg dose Continuing glipizide Restart Jardiance, we will try to keep that going as well BP is well controlled, will take off the hydrochlorothiazide and continue Micardis alone. Monitor BP at home over the next 2 weeks, let me know if BP is creeping back towards 130/80 or above Class 3 severe obesity due t o excess calories with serious comorbidity and body mass index (BMI) of 40.0 to 44.9 in adult 12/05/2021 Assessment & Plan (09/17/2023 3:05 PM CDT): BMI Follow-up includes: nutrition counseling, exercise counseling, and education provided. Assessment & Plan (04/08/2023 10:59 AM BOILER WELDER): BMI Follow-up includes: nutrition counseling, exercise counseling, and education provided. Assessment & Plan (06/15/2022 12:15 PM BOILER WELDER): BMI Follow-up includes: nutrition counseling, exercise counseling and education provided. Assessment & Plan (03/26/2022 10:51 PM CDT): Healthy, low carbohydrate lifestyle and exercise for 150min/week recommended Stage 3b chronic kidney disease 12/05/2021 Medial epicondylitis of elbow, left 09/05/2021 Assessment & Plan (09/05/2021 1:53 PM CDT): Medial epicondylitis (golfer's elbow) present. See handout. I am recommending Voltaren cream (OTC) 3-4 times a day. Should be helpful over time. May also use CBD oil if desired Precordial pain 07/12/2021 Assessment & Plan (07/12/2021 10:21 AM BOILER WELDER): Likely was reflux-related rather than cardiac based on work up, however small abnormality was seen on lexiscan. Seeing farm tractor mechanic on Thursday I will want to get the full records from [place] For now, continue the regimen after hospital (continue amlodipine, diltiazem, metoprolol, and Protonix) Continue atorvastatin as well We will leave the metformin off, recheck the creatinine today. Continue glipizide Log the sugars and BP through the week, send me the numbers. If the BP and sugars don't behave, I will adjust the regimen further (potentially adding another diabetes med in place of metformin, paring back the BP med's, etc). Type 2 diabetes mellitus 03/06/2021 Assessment & Plan (09/05/2021 1:52 PM CDT): Home glucoses seem a bit higher than desired, so will add Tradjenta. Continue glipizide, but in the short-term need to watch the blood sugars closely. We may need to reduce the glipizide if sugars stay below 110, for example. Erectile dysfunction 02/27/2021 Establishing care with new doctor, encounter for 02/27/2021 Assessment & Plan (03/11/2021 8:41 PM CDT): A yearly well adult (establish) has been performed today. Esau Joseph is not up to date on screening tests. He is in need of Diabetic eye exam, Diabetic foot exam, AAA Screen and Colon cancer screening- these have been ordered. He is not up to date on needed preventative vaccinations; He is in need of Tdap/Td, Influenza, Pneumonia (Prevnar-13 or Pneumovax-23) and Zoster. These have been ordered/arranged unless otherwise indicated. BP is borderline elevated; monitor at home. I want it to stay below 140/90. Will continue the current regimen for now Labs as ordered Screening for aortic aneurysm ordered, also screening for hep c (once). I have reordered Cologuard testing. Due for tetanus booster, pneumonia vaccination (we won't be able to give here, but can get at pharmacy) Gross hematuria 01/22/2021 Benign prostatic hyperplasia 01/22/2021 Essential hypertension Assessment & Plan (02/22/2024 3:14 PM CDT): Stable continue amlodipine Resolved Problems Problem Noted Date Diagnosed Date Resolved Date Hypoglycemia associated with type 2 diabetes mellitus 04/16/2021 06/15/2022 Immunizations Immunization Administration Dates Next Due Influenza, Quadrivalent, Hig h Dose, Preservative Free, Intrr 03/18/2023,01/03/2022,03/06/2021 Influenza, Quadrivalent, Rec ombinant, Egg Free, Preservative Free, Intramuscular 04/13/2015 Influenza, Quadrivalent, Spl it, Intramuscular 02/23/2019,02/26/2018 Influenza, Quadrivalent, Spl it, Preservative Free, Intradermal 04/13/2015 Influenza, Quadrivalent, Spl it, Preservative Free, Intramuscular 02/01/2016 Influenza, Trivalent, High D ose, Split, Preservative Free, Intramuscular 03/24/2024 Influenza, Unspecified 02/21/2022,2021,03/08/2020(Defer red: Patient Refused) Moderna SARS-CoV-2 Monovalen t Vaccination (12+ YRS) 05/30/2021 Pneumococcal Conjugate Pcv20 03/18/2023 Social History Tobacco Use Types Packs/Day Years Used Date Smoking Tobacco: Former Cigarettes 1 35 0 05/25/1965 - 05/25/2000 Passive Smoke Exposure: Past Smokeless Tobacco: Never Tobacco Cessation:Counseling Given: Not Answered Social Connection and Isolation Panel [NHANES] A nswer Date Recorded Frequency of Communication with Friends and Fami ly Not on file 03/06/2021 Frequency of Social Gatherings with Friends and Family Not on file 03/06/2021 Attends Buddhism Services Not on file 03/06 Active Member [...] on file Legal Sex Male 7:26 PM BOILER WELDER Gender Identity Not on file Sexual Orientation Not on file Occupation Industry Job Start Date Job End Date [employer] Not on file Not on file Not on file Last Filed Vital Signs Vital Sign Reading Time Taken Comments Blood Pressure 108/72 06/08/2024 2:00 PM BOILER WELDER Pulse 67 06/08/2024 2:00 PM BOILER WELDER Temperature 36.7 C (98 F) 06/08/2024 2:00 PM BOILER WELDER Respiratory Rate 20 06/08/2024 2:00 PM BOILER WELDER Oxygen Saturation 96% 06/08/2024 2:00 PM BOILER WELDER Inhaled Oxygen Concentration - - Weight 127.5 kg (281 lb) 06/08/2024 2:00 PM BOILER WELDER Height 175.3 cm (5' 9 ) 07/05/2024 2:15 PM BOILER WELDER Body Mass Index 41.5 06/08/2024 2:00 PM BOILER WELDER Plan of Treatment Upcoming Encounters Date Type Department Care Team (Latest Contact Info) Description 08/02/2024 11:00 AM CDT Hospital Encounter [facility] Cardiac Catheterization Lab [address] [place] [address] Ubaldo Cantu MD [address] [id number] Chest pain, unspecified type 08/02/2024 11:00 AM CDT - 08/02/2024 12:30 PM CDT Surgery [facility] Cardiac Catheterization Lab [address] [place] [address] Ubaldo Cantu MD [address] [id number] LEFT HEART CATHETERIZATION WITH CORONARY ANGIOGRAPHY AND WITH OR WITHOUT LEFT VENTRICULOGRAM [id number] 08/09/2024 10:00 AM CDT Hospital Encounter [facility] Operating Room [address] [place] [phone] Isha Yang MD [id number] [place] [id number] 08/09/2024 10:00 AM CDT - 08/09/2024 10:30 AM CDT Surgery [facility] Operating Room [address] [place] [phone] Isha Yang MD [address] [place] [phone] DRUG INDUCED SLEEP ENDOSCOPY Scheduled Procedures Name Priority Associated Diagnoses Date/Ti me DRUG INDUCED SLEEP ENDOSCOPY EVAL FLEX DIAG NUVIA (obstructive sleep apnea) 08/09/2024 10:00 AM CDT Medical Devices Implanted Type Area Consultant Technology Device Identifier Shelf Expiration Date Model / Serial / Lot Medtronic Card Vasc Surgery 3.5 X 15mm [employer] [place] Rx Coronary Stent [id number] - [id number] Implanted:Qty: 1 on 07/29/2022 by Ubaldo Cantu MD at [facility] Medtronic Card Vasc Surgery 10/11/2023 [id number] / / [id number] [employer] Angio-Seal Vip 6fr Closere Device [id number] - [id number] Implanted:Qty: 1 on 07/29/2022 by Ubaldo Cantu MD at [facility] [employer] 02/21/2023 [id number] / / [id number] Procedures Procedure Name Priority Date/Time Associated Diagnosis Comments EGFR Routine 06/01/2024 10:11 AM BOILER WELDER Stage 3b chronic kidney disease (HCC) DIFFERENTIAL AUTO Routine 06/01/2024 10: 11 AM BOILER WELDER Obesity, diabetes, and hypertension syndrome (HCC) Hyperlipidemia associated with type 2 diabetes mellitus (HCC) COMPREHENSIVE METABOLIC PANEL Routine 06/01/2024 10:11 AM BOILER WELDER Stage 3b chronic kidney disease (HCC) CBC WITH AUTO DIFFERENTIAL Routine 06/01/2024 10:11 AM BOILER WELDER Obesity, diabetes, and hypertension syndrome (HCC) Hyperlipidemia associated with type 2 diabetes mellitus (HCC) LIPID PANEL Routine 06/01/2024 10:11 AM BOILER WELDER Hyperlipidemia associated with type 2 diabetes mellitus (HCC) HEMOGLOBIN A1C Routine 06/01/2024 10:11 AM BOILER WELDER Obesity, diabetes, and hypertension syndrome (HCC) Hyperlipidemia associated with type 2 diabetes mellitus (HCC) ALBUMIN CREATININE RATIO, URINE Routine 06/01/2024 10:11 AM BOILER WELDER Obesity, diabetes, and hypertension syndrome (HCC) Stage 3b chronic kidney disease (HCC) PSA SCREEN Routine 06/01/2024 10:11 AM BOILER WELDER Benign prostatic hyperplasia with urinary obstruction STOOL DNA COLOGUARD Routine 04/18/2023 4:15 PM BOILER WELDER Colon cancer screening DIABETES EYE EXAM Routine 02/27/2023 US ABDOMINAL AORTA Schedule Routine, Read Routine (OP Routine) 03/19/2021 7:34 AM CDT Encounter for abdominal aortic aneurysm (AAA) screening HEPATITIS C ANTIBODY Routine 03/06/2021 3:10 PM CDT Encounter for hepatitis C screening test for low risk patient from Last 3 Months or Most Recently Relevant to Health Maintenance Results * (ABNORMAL) eGFR (06/01/2024 10:11 AM BOILER WELDER) eGFR 40(L) >=60 mL/min/1. 73 m2 Comment: Interpretive Data Reference Interval Normal >/= 90 mL/min/1.73m2 Mildly decreased* 60 - 89 mL/min/1.73m2 Mildly to moderately decreased 45 - 59 mL/min/1.73m2 Moderately to severely decreased 30 - 44 mL/min/1.73m2 Severely decreased 15 - 29 mL/min/1.73m2 Kidney Failure < 15 mL/min/1.73m2 *Relative to young adult level Estimated glomerular filtration rate is determined by the 2020 CKD-EPI equation recommended by the National Kidney Foundation (A Unifying Approach to GFR Estimation: Recommendations of the NKF-ASK Task Force on Reassessing the Inclusion of Race in Diagnosing Kidney Disease, JASN 2020). The CKD-EPI equation should not be used for patients with unstable renal function and has not been validated in children and those over 70. Current interpretive data was last reviewed 2021. Blood 06/01/2024 10:1 1 AM BOILER WELDER 06/01/2024 5:56 PM BOILER WELDER us Timoteo Sharpe MD LAB BLOOD ORDERABLES Final Result [facility] [id number] [place] [address] * Differential, auto (06/01/2024 10:11 AM BOILER WELDER) Neutrophil abs 3.8 1.5 - 6.5 K/cumm Imm gran abs 0.0 0.0 - 0.1 K/cumm [facility] Lymphocyte abs 1.1 0.8 - 3.3 K/cumm [facility] Monocyte abs 0.5 0.2 - 0.8 K/cumm [facility] Eosinophil abs 0.2 0.0 - 0.5 K/cumm [facility] Basophil abs 0.0 0.0 - 0.1 K/cumm [facility] Neutrophil pct 68.2 % [facility] Comment: Interpretive Data Percent cell count reference ranges are not reported, since discordance with absolute values may lead to misinterpretation of CBC data. Current Interpretive Data was last revised on 2017. Imm gran pct 0.4 % [facility] Comment: Interpretive Data Percent cell count reference ranges are not reported, since discordance with absolute values may lead to misinterpretation of CBC data. Current Interpretive Data was last revised on 2017. Lymphocyte pct 18.7 % [facility] Comment: Interpretive Data Percent cell count reference ranges are not reported, since discordance with absolute values may lead to misinterpretation of CBC data. Current Interpretive Data was last revised on 2017. Monocyte pct 8.3 % [facility] Comment: Interpretive Data Percent cell count reference ranges are not reported, since discordance with absolute values may lead to misinterpretation of CBC data. Current Interpretive Data was last revised on 2017. Eosinophil pct 3.9 % [facility] Comment: Interpretive Data Percent cell count reference ranges are not reported, since discordance with absolute values may lead to misinterpretation of CBC data. Current Interpretive Data was last revised on 2017. Basophil pct 0.5 % [facility] Comment: Interpretive Data Percent cell count reference ranges are not reported, since discordance with absolute values may lead to misinterpretation of CBC data. Current Interpretive Data was last revised on 2017. Blood 06/01/2024 10:1 1 AM BOILER WELDER 06/01/2024 5:56 PM BOILER WELDER us Timoteo Sharpe MD LAB BLOOD ORDERABLES Final Result [facility] [address] [place] [address] * PSA screen (06/01/2024 10:11 AM BOILER WELDER) PSA-Total 1.50 <=6.20 ng/mL Comment: Interpretive Data AGE SEX REFERENCE INTERVAL 0 minutes-150 years Female None 0 minutes-49 years Male None 50-59 years Male 0-3.90 60-69 years Male 0-5.40 70-79 years Male 0-6.20 80-150 years Male 0-6.20 The Thuan PSA Total assay procedure was used. Results from different manufacturers or methods may not be comparable. Serial testing should be performed using the same method. Current interpretive data last revised 21. Blood 06/01/2024 10:1 1 AM BOILER WELDER 06/01/2024 5:56 PM BOILER WELDER Timoteo Sharpe MD LAB BLOOD ORDERABLES Final Result [facility] [address] [place] [address] * (ABNORMAL) CBC with auto differential (06/01/2024 10:11 AM BOILER WELDER) WBC 5.6 3.8 - 9.9 K/cumm Hgb 12.5(L) 13.0 - 17.5 g/dL [facility] Hct 40.8 38.9 - 50.3 % [facility] Plt 231 150 - 400 K/cumm [facility] MPV 9.7 9.1 - 12.3 fL [facility] RBC 4.49 4.30 - 5.80 M/cumm [facility] MCV 90.9 81.3 - 96.4 fL [facility] MCH 27.8 27.1 - 33.3 pg [facility] MCHC 30.6(L) 32.3 - 35.7 g/dL [facility] RDW CV 14.0 11.1 - 14.9 % [facility] CH RDW SD 46.5 35.7 - 48.1 fL [facility] NRBC abs 0.00 0.00 - 0.01 K/cumm [facility] Blood 06/01/2024 10:1 1 AM BOILER WELDER 06/01/2024 5:56 PM BOILER WELDER Result [facility] Timoteo Sharpe MD LAB BLOOD ORDERABLES Final Result Performing Organization Address [facility] Phone Number [facility] [phone] [facility] [place] [address] * Albumin Creatinine Ratio, Urine (06/01/2024 10:11 AM BOILER WELDER) Albumin Ur 18.8 mg/L Comment: Interpretive Data No reference range established. Current interpretive data was last revised 2018. Creatinine Ur 204.0 mg/dL [facility] Comment: Interpretive Data No reference range established. Current interpretive data was last revised 2018. Albumin Creatinine Ratio, Ur 9 1 - 29 mg/g [facility] Urine 06/01/2024 10:1 1 AM BOILER WELDER 06/01/2024 5:56 PM BOILER WELDER Result [facility] Timoteo Sharpe MD LAB URINE ORDERABLES Final Result Performing Organization Address [facility] Phone Number [facility] [address] [facility] [place] [place] [address] * (ABNORMAL) Hemoglobin A1c (06/01/2024 10:11 AM BOILER WELDER) Hgb A1C 6.4(H) 4.0 - 5.6 % Estimated Average Glucose 137 mg/dL [facility] Comment: The ADA recommends reporting an estimated Average Glucose (eAG) with all Hemoglobin A1c results using the equation derived from a study of 507 normal and diabetic adults. Minority populations were underrepresented and children were not included. (Diabetes Care 31:0564-9998, 2008). The eAG is not equivalent to a fasting glucose. Blood 06/01/2024 10:1 1 AM BOILER WELDER 06/01/2024 5:56 PM BOILER WELDER Result [facility] Timoteo Sharpe MD LAB BLOOD ORDERABLES Final Result Performing Organization Address [facility] Co de Phone Number [facility] [phone] [place] [address] * Lipid panel (06/01/2024 10:11 AM BOILER WELDER) Cholesterol 140 30 - 199 mg/dL Comment: Interpretive Data Ages < or = 19 years Acceptable: <170 mg/dL Borderline high: 170-199 mg/dL High: >or= 200 mg/dL Ages > or = 20 years Desirable: <200 mg/dL Borderline high: 200-239 mg/dL High: >or= 240 mg/dL Literature References: 1. Expert Panel on Integrated Guidelines for Cardiovascular Health and Risk Reduction in Children and Adolescents. Pediatrics 2011;128:S213 2. NCEP Expert Panel. Circulation 2004;110:227 Current Interpretive Data was last revised on 2018. Triglycerides 30 <=149 mg/dL [facility] Comment: Interpretive Data Ages < or = 9 years Acceptable: <75 mg/dL Borderline high: 75-99 mg/dL High: >or= 100 mg/dL Ages 10 to 20 years Acceptable: <90 mg/dL Borderline high: 90-129 mg/dL High: >or= 130 mg/dL Ages > or = 20 years Desirable: <150 mg/dL Borderline high: 150-199 mg/dL High: 200-499 mg/dL Very high: >or= 499 mg/dL Literature References: 1. Expert Panel on Integrated Guidelines for Cardiovascular Health and Risk Reduction in Children and Adolescents. Pediatrics 2011;128:S213 2. NCEP Expert Panel. Circulation 2004;110:227 Current Interpretive Data was last revised on 2018. HDL 47 >=40 mg/dL [facility] Comment: Interpretive Data Ages < or = 19 years Acceptable: >45 mg/dL Borderline low: 40-45 mg/dL Low: <40 mg/dL Ages > or = 20 years Desirable: >or= 60 mg/dL Low: <40 mg/dL Literature References: 1. Expert Panel on Integrated Guidelines for Cardiovascular Health and Risk Reduction in Children and Adolescents. Pediatrics 2011;128:S213 2. NCEP Expert Panel. Circulation 2004;110:227 Current Interpretive Data was last revised on 2018. LDL, calculated 85 <=129 mg/dL [facility] Comment: Interpretive Data Ages < or = 19 years Acceptable: <110 mg/dL Borderline high: 110-129 mg/dL High: >or= 130 mg/dL Ages > or = 20 years Optimal: <100 mg/dL Near optimal: 100-129 mg/dL Borderline high: 130-159 mg/dL High: >160 mg/dL Calculated using the Jameson LDL-C estimating equation. This equation was implemented on 2024. Prior to this date LDL-C was estimated using the Friedewald equation. Literature References: 1. Expert Panel on Integrated Guidelines for Cardiovascular Health and Risk Reduction in Children and Adolescents. Pediatrics 2011;128:S213 2. NCEP Expert Panel. Circulation 2004;110:227 3. Jameson Claudio et al. JOSEPH Cardiol. 2020 September 22;5(5):540-548. doi: 10.1001/jamacardio.2020.0013 Current Interpretive Data was last revised on 2024. Non-HDL Cholesterol 93 mg/dL [facility] Comment: Interpretive Data Ages < or = 19 years Acceptable: <120 mg/dL Borderline high: 120-144 mg/dL High: >145 mg/dL Ages > or = 20 years When triglycerides are >200 mg/dL, Non-HDL cholesterol is a secondary target of therapy with treatment goals that are 30 mg/dL greater than the LDL cholesterol target. Literature References: 1. Expert Panel on Integrated Guidelines for Cardiovascular Health and Risk Reduction in Children and Adolescents. Pediatrics 2011;128:S213 2. NCEP Expert Panel. Circulation 2004;110:227 Current Interpretive Data was last revised on 2018. Chol/HDL ratio 3 [facility] Blood 06/01/2024 10:1 1 AM BOILER WELDER 06/01/2024 5:56 PM BOILER WELDER us Timoteo Sharpe MD LAB BLOOD ORDERABLES Final Result [facility] [address] [place] [address] * (ABNORMAL) Comprehensive metabolic panel (06/01/2024 10:11 AM BOILER WELDER) Sodium 143 135 - 145 mmol/L Potassium, pl 4.4 3.3 - 4.9 mmol/L [facility] Chloride 107 97 - 110 mmol/L [facility] CO2 24 22 - 32 mmol/L [facility] Anion gap 12 2 - 15 mmol/L [facility] BUN 33(H) 6 - 25 mg/dL [facility] Creatinine 1.75(H) 0.80 - 1.30 mg/dL [facility] Glucose 99 70 - 199 mg/dL [facility] Comment: Interpretive Data Fasting glucose >/= 126 mg/dl is diagnostic for diabetes. Fasting is defined as no caloric intake for at least 8 hours. Fasting glucose between 100 mg/dl to 125 mg/dl is diagnostic of prediabetes. In a patient with classic symptoms of hyperglycemia or hyperglycemic crisis, a random glucose >/= 200 mg/dl is diagnostic for diabetes. In the absence of unequivocal hyperglycemia, results should be confirmed by repeat testing. The classification and Diagnosis of Diabetes Diabetes Care 202; 46: S19-S40. Current interpretive data was last revised 2022. Calcium 8.8 8.5 - 10.3 mg/dL [facility] Bilirubin, total 0.4 0.1 - 1.2 mg/dL [facility] Protein, pl 7.7 6.5 - 8.5 g/dL [facility] Albumin 4.0 3.5 - 5.0 g/dL [facility] Alk phos 82 40 - 130 Units/L [facility] ALT 19 7 - 55 Units/L [facility] AST 18 10 - 50 Units/L [facility] Blood 06/01/2024 10:1 1 AM BOILER WELDER 06/01/2024 5:56 PM BOILER WELDER Timoteo Sharpe MD LAB BLOOD ORDERABLES Final Result [facility] [address] [place] [address] * Stool DNA - Cologuard (04/18/2023 4:15 PM BOILER WELDER) Pathologist [facility] Stool DNA - Cologuard Negative Negative [facility] (CLIA #:[id number]) Comment: NEGATIVE TEST RESULT. A negative Cologuard result indicates a low likelihood that a colorectal cancer (CRC) or advanced adenoma (adenomatous polyps with more advanced pre-malignant features) is present. The chance that a person with a negative Cologuard test has a colorectal cancer is less than 1 in 1500 (negative predictive value >99.9%) or has an advanced adenoma is less than 5.3% (negative predictive value 94.7%). These data are based on a prospective cross-sectional study of 10,000 individuals at average risk for colorectal cancer who were screened with both Cologuard and colonoscopy. (Bozena Coughlin et al, N Engl J Med 2014;370(14):5586-8954) The normal value (reference range) for this assay is negative. COLOGUARD RE-SCREENING RECOMMENDATION: Periodic colorectal cancer screening is an important part of preventive healthcare for asymptomatic individuals at average risk for colorectal cancer. Following a negative Cologuard result, the [place] [employer] Society and U.S. Multi-Society Task Force screening guidelines recommend a Cologuard re-screening interval of 3 years. References: [place] [employer] Guideline for Colorectal Cancer Screening: https://www.cancer.org/cancer/xrzxl-mmgzyc-eydlhb/bomajpksr-ajqflgocr-cygxqhx/ac s-rec ommendations.html.; Rambo CAGLE, Sam SANTOS, Anaid BledsoeK, Colorectal Cancer Screening: Recommendations for Physicians and Patients from the U.S. Multi-Society Task Force on Colorectal Cancer Screening , Am J Gastroenterology 2017; 112:5442-5280. TEST DESCRIPTION: Composite algorithmic analysis of stool DNA-biomarkers with hemoglobin immunoassay. Quantitative values of individual biomarkers are not reportable and are not associated with individual biomarker result reference ranges. Cologuard is intended for colorectal cancer screening of adults of either sex, 45 years or older, who are at average-risk for colorectal cancer (CRC). Cologuard has been approved for use by the U.S. FDA. The performance of Cologuard was established in a cross sectional study of average-risk adults aged 50-84. Cologuard performance in patients ages 45 to 49 years was estimated by sub-group analysis of near-age groups. Colonoscopies performed for a positive result may find as the most clinically significant lesion: colorectal cancer [4.0%], advanced adenoma (including sessile serrated polyps greater than or equal to 1cm diameter) [20%] or non- advanced adenoma [31%]; or no colorectal neoplasia [45%]. These estimates are derived from a prospective cross-sectional screening study of 10,000 individuals at average risk for colorectal cancer who were screened with both Cologuard and colonoscopy. (Bozena Coughlin et al, N Engl J Med 2014;370(14):7195-3579.) Cologuard may produce a false negative or false positive result (no colorectal cancer or precancerous polyp present at colonoscopy follow up). A negative Cologuard test result does not guarantee the absence of CRC or advanced adenoma (pre-cancer). The current Cologuard screening interval is every 3 years. ([place] [employer] and U.S. Multi-Society Task Force). Cologuard performance data in a 10,000 patient pivotal study using colonoscopy as the reference method can be accessed at the following location: www.Protagen/results. Additional description of the Cologuard test process, warnings and precautions can be found at www.cologuard.com. Stool 04/18/2023 4:15 PM BOILER WELDER 04/21/2023 11:30 AM BOILER WELDER Timoteo Sharpe MD LAB BODY FLUIDS AND STOOLS ORDERABLES Final Result [facility] (CLIA #:[id number]) [address] [place] [address] * DIABETES EYE EXAM (02/27/2023) Historical Provider [facility] MAINTENANCE Edited Result - Final * US Abdominal Aorta (03/19/2021 7:34 AM CDT) Anatomical Region Laterality Modality Abdomen N/A Ultrasound 03/19/2021 7:42 AM CDT Narrative 03/19/2021 7:51 AM CDT EXAM DESCRIPTION: US ABDOMINAL AORTA REASON FOR STUDY: screen aaa TECHNIQUE: Grayscale images acquired of the aorta and stored on PACS. Selected color Doppler and spectral images recorded. COMPARISON: Correlation is made with CT abdomen and pelvis performed 12/04/2020. FINDINGS: AORTIC CALIBER MAXIMAL PROXIMAL: 2.4 x 2.4 cm. MID: 2.3 x 2.4 cm. DISTAL: 1.8 x 1.8 cm. ILIAC DIAMETER RIGHT: 3.3 x 3.1 cm. This measured about 3.[address] LEFT: 1.4 x 1.5 cm. OTHER: No other significant finding. IMPRESSION: 1. No abdominal aortic aneurysm. 2. 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 THIS IS AN ELECTRONICALLY VERIFIED FINAL REPORT 03/19/2021 7:51 AM - Electronically signed by Kodak Montes M.D., JR: Report ID: [id number] Reading Location: [id number] Procedure Note Kodak Montes MD - 03/19/2021 EXAM DESCRIPTION: US ABDOMINAL AORTA REASON FOR STUDY: screen aaa TECHNIQUE: Grayscale images acquired of the aorta and stored on PACS. Selected color Doppler and spectral images recorded. COMPARISON: Correlation is made with CT abdomen and pelvis performed 12/04/2020. FINDINGS: AORTIC CALIBER MAXIMAL PROXIMAL: 2.4 x 2.4 cm. MID: 2.3 x 2.4 cm. DISTAL: 1.8 x 1.8 cm. ILIAC DIAMETER RIGHT: 3.3 x 3.1 cm. This measured about 3.[address] LEFT: 1.4 x 1.5 cm. OTHER: No other significant finding. IMPRESSION: 1. No abdominal aortic aneurysm. 2. Aneurysmal dilatation of the right common iliac artery, measuring 3.3cm maximum dimension. THIS IS AN ELECTRONICALLY VERIFIED FINAL REPORT 03/19/2021 7:51 AM - Electronically signed by Kodak Montes M.D. JR: Report ID: [id number] Reading Location: [id number] us Timoteo Sharpe MD IMG US PROCEDURES Final Res ult * Hepatitis C antibody (03/06/2021 3:10 PM CDT) Hep C Ab Nonreactive Nonreactive [facility] Comment: Interpretive Data Nonreactive: Antibodies to HCV not detected. Does NOT exclude the possibility of recent exposure to HCV. Equivocal: Equivocal for HCV antibodies. Supplemental molecular testing will be automatically performed to determine infection status in accordance with current CDC screening recommendations. Reactive: Positive for HCV antibodies. This may represent current or past HCV infection. Supplemental molecular testing will be automatically performed to determine current infection status in accordance with current CDC screening recommendations. Interpretive data was last revised on 2019. Blood 03/06/2021 3:10 PM CDT 03/06/2021 8:51 PM CDT us Timoteo Sharpe MD LAB MICROBIOLOGY - GENERAL ORDERABLES Final Result [facility] [address] [place] [address] from Last 3 Months or Most Recently Relevant to Health Maintenance Insurance [employer] MEDICARE GOLD [employer] CHOICE MEDICARE PPO TNA MEDICARE GOLD WORKERS COMPENSATION GENERIC BISI NEWELL Advance Directives For more information, please contact: [phone] * Full Code (Latest Code Status on File) Date Activated Date Inactivated Comments 07/29/2022 12:26 PM 07/29/2022 8:20 PM * Full Code Date Activated Date Inactivated Comments 01/25/2021 7:09 PM 01/29/2021 6:54 PM * Full Code Date Activated Date Inactivated Comments 01/24/2021 3:16 PM 01/25/2021 1:31 PM * Full Code Date Activated Date Inactivated Comments 01/22/2021 9:10 PM 01/23/2021 9:30 PM Care Teams Medical Asst Relationship Specialty Start Date End Date Timoteo Sharpe MD PCP - General Family Medicine 03/08/21 EdenSolitario santana MD Consulting Physician Urology 01/23/21 [address] [place] [address] Dietitian 03/03/23 Evens Geronimo MD [address] [facility] [place] [address] Referring Physician Orthopedic Surgery 03/24/24 [facility] [place], [address] Physical Therapist Physical Therapy 11/11/22
--- OUTSIDE RECORDS SUMMARY | 2024-08-01 18:40 | XMS_ITS | Patient Health Record ---
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 Research Program Manager ally Once a day for 90 days 11/05/2023 10/30/2024 Active Immunizations Vaccine Route Administration Date Status Comme nts Influenza, high dose seasonal Unknown 03/18/2023 Admini stered Vital Signs Height-cm 182.88 cm 05/19/2024 Weight-kg 117.93 kg 05/19/2024 Height 72.00 in 05/19/2024 Weight 260 lbs 05/19/2024 BMI 35.26 kg/m2 05/19/2024 Encounters Encounter Location Date Provider Diagnosis [facility] [address] [place] [id number] 07/21/2024 VERNA ROONEY Onychomycosis B35.1 ; Pain in right toe(s) M79.674 ; Pain in left toe(s) M79.675 ; 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, bilateral legs I70.213 ; Type 2 diabetes mellitus without complications E11.9 and Hyperkeratosis L85.9 [facility] [address] [place], [place] [id number] 08/14/2023 VERNA ROONEY Onychomycosis B35.1 ; Pain in right toe(s) M79.674 ; Pain in left toe(s) M79.675 ; 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, bilateral legs I70.213 ; Type 2 diabetes mellitus without complications E11.9 and Hyperkeratosis L85.9 [facility] [address] [place] [address] [id number] 11/05/2023 VERNA ROONEY Onychomycosis B35.1 ; Pain in right toe(s) M79.674 ; Pain in left toe(s) M79.675 ; 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, bilateral legs I70.213 ; Type 2 diabetes mellitus without complications E11.9 and Hyperkeratosis L85.9 [facility] [place] [address] [place] [address] [id number] 01/07/2024 VERNA ROONEY Onychomycosis B35.1 ; Pain in right toe(s) M79.674 ; Pain in left toe(s) M79.675 ; 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, bilateral legs 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 ; Type 2 diabetes mellitus without complications E11.9 and Hyperkeratosis L85.9 [facility] [address] [place] [id number] 03/17/2024 VERNA ROONEY Onychomycosis B35.1 ; Pain in right toe(s) M79.674 ; Pain in left toe(s) M79.675 ; 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, bilateral legs I70.213 ; Type 2 diabetes mellitus without complications E11.9 and Hyperkeratosis L85.9 [facility] [address] [place] [address] [id number] 05/19/2024 VERNA NEVIN Onychomycosis B35.1 ; Pain in right toe(s) M79.674 ; Pain in left toe(s) M79.675 ; 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, bilateral legs I70.213 ; Type 2 diabetes mellitus without complications E11.9 and Hyperkeratosis L85.9 [facility] [address] [facility] [address] [place], [place] [phone] 08/14/2023 VERNA ROONEY Assessments Encounter Date Diagnosis (ICD Code) Assessment Notes Treatment Notes Treatment Clinical Notes Section Notes 08/14/2023 Onychomycosis (ICD-10 - B35.1) NAIL DEBRIDEMENT: Nails 1-5 Bilateral were debrided extensively with nail nippers and emery board, reducing length and girth to pink healthy tissue with any subungual debris and necrotic tissue removed 11/05/2023 Onychomycosis (ICD-10 - B35.1) NAIL DEBRIDEMENT: Nails 1-5 Bilateral were debrided extensively with nail nippers and emery board, reducing length and girth to pink healthy tissue with any subungual debris and necrotic tissue removed Discussed various treatment options for fungal toenails including debridement, topical antifungals, oral antifungals, toenail avulsion, or toenail matrixectomy. The patient opted for treatment with Penlac. A prescription was dispensed 01/07/2024 Onychomycosis (ICD-10 - B35.1) NAIL DEBRIDEMENT: Nails [...] with Penlac. A prescription was dispensed 03/17/2024 Onychomycosis (ICD-10 - B35.1) NAIL DEBRIDEMENT: [...] with Penlac. A prescription was dispensed 05/19/2024 Onychomycosis (ICD-10 - B35.1) NAIL DEBRIDEMENT: [...] with Penlac. A prescription was dispensed 07/21/2024 Onychomycosis (ICD-10 - B35.1) NAIL DEBRIDEMENT: [...] toe(s) (ICD-10 - M79.674) 07/21/2024 Pain in right toe(s) (ICD-10 - M79.674) 03/17/2024 Pain in right toe(s) (ICD-10 - M79.674) 01/07/2024 Pain in right toe(s) (ICD-10 - M79.674) 08/14/2023 Pain in right toe(s) (ICD-10 - M79.674) 11/05/2023 Pain in right toe(s) (ICD-10 - M79.674) 11/05/2023 Pain in left toe(s) (ICD-10 - M79.675) 08/14/2023 Pain in left toe(s) (ICD-10 - M79.675) 01/07/2024 Pain in left toe(s) (ICD-10 - M79.675) 03/17/2024 Pain in left toe(s) (ICD-10 - M79.675) 07/21/2024 Pain in left toe(s) (ICD-10 - M79.675) 05/19/2024 Pain in left toe(s) (ICD-10 - M79.675) 05/19/2024 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, bilateral legs (ICD-10 - I70.213) 07/21/2024 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, bilateral legs (ICD-10 - I70.213) 01/07/2024 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, bilateral legs (ICD-10 - I70.213) 03/17/2024 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, bilateral legs (ICD-10 - I70.213) 11/05/2023 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, bilateral legs (ICD-10 - I70.213) 08/14/2023 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, bilateral legs (ICD-10 - I70.213) 08/14/2023 Type 2 diabetes mellitus without complications (ICD-10 - E11.9) DIABETIC FOOT CARE: Both feet were examined today. Diabetic preventive care provided as documented. Diabetic foot care education discussed today to including: daily foot inspections, appropriate protective shoe gear, and strict glycemic control. Patient to return to the office routinely for preventive diabetic foot care or sooner if patient notices any acute changes. 11/05/2023 Type 2 diabetes mellitus without complications (ICD-10 - E11.9) DIABETIC FOOT CARE: Both feet were examined today. Diabetic preventive care provided as documented. Diabetic foot care education discussed today to including: daily foot inspections, appropriate protective shoe gear, and strict glycemic control. Patient to return to the office routinely for preventive diabetic foot care or sooner if patient notices any acute changes. 01/07/2024 Type 2 diabetes mellitus without complications (ICD-10 - E11.9) DIABETIC FOOT CARE: Both feet were examined today. Diabetic preventive care provided as documented. Diabetic foot care education discussed today to including: daily foot inspections, appropriate protective shoe gear, and strict glycemic control. Patient to return to the office routinely for preventive diabetic foot care or sooner if patient notices any acute changes. 05/19/2024 Type 2 diabetes mellitus without complications [...] if patient notices any acute changes. 03/17/2024 Type 2 diabetes mellitus without complications [...] if patient notices any acute changes. 07/21/2024 Type 2 diabetes mellitus without complications [...] sharply debrided down to healthy appearing skin. 07/21/2024 Hyperkeratosis (ICD-10 - L85.9) Hyperkeratosis: The skin was prepped with isopropyl alcohol. Using a 15-blade scalpel, the hyperkeratotic skin lesions were sharply debrided down to healthy appearing skin. 03/17/2024 Hyperkeratosis (ICD-10 - L85.9) Hyperkeratosis: The skin was prepped with isopropyl alcohol. Using a 15-blade scalpel, the hyperkeratotic skin lesions were sharply debrided down to healthy appearing skin. 11/05/2023 Hyperkeratosis (ICD-10 - L85.9) Hyperkeratosis: The skin was prepped with isopropyl alcohol. Using a 15-blade scalpel, the hyperkeratotic skin lesions were sharply debrided down to healthy appearing skin. 01/07/2024 Hyperkeratosis (ICD-10 - L85.9) Hyperkeratosis: The skin was prepped with isopropyl alcohol. Using a 15-blade scalpel, the hyperkeratotic skin lesions were sharply debrided down to healthy appearing skin. 08/14/2023 Hyperkeratosis (ICD-10 - L85.9) Hyperkeratosis: The skin was prepped with isopropyl alcohol. Using a 15-blade scalpel, the hyperkeratotic skin lesions were sharply debrided down to healthy appearing skin. Plan Of Treatment Next Appt Details Provider Name:VERNA REYES, 09/22/2024 02:20:00 PM, [address], [address], [phone], Insurance Providers Payer Name Payer Address Payer Phone Subscriber Number Group Number Insured Name Patient Relationship to Insured Coverage Start Date Coverage End Date [employer] [address] [place] [phone] [id number] DANA ALONZO Self - patient is the insured Medical (General) History Medical History History ICD Code Diabetic
--- OUTSIDE RECORDS SUMMARY | 2024-08-01 18:40 | XMS_ITS | Clinical Summary ---
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 Take 1 tablet (30 mg total) by mouth daily 30 tablet 11 06/07/19 25 026 Active semaglutide (OZEMPIC) 2 [...] associated with diabetes (HCC) TAKE 1 & 1/2 (ONE & ONE-HALF) TABLETS BY MOUTH IN [...] 03/25 Assessment & Plan (04/08/2023 10:59 AM WINDLASSER): A(n) yearly Medicare Annual Wellness Visit has [...] 04/05/2022 Assessment & Plan (04/05/2022 1:22 PM WINDLASSER): Dizziness was likely vasovagal, but we will [...] artery disease of n ative artery of eklutna heart with stable angina pectoris 01/21/2022 Hyperlipidemia associated with type 2 diabetes m jorgeitus 01/21/2022 Assessment & Plan (02/22/2024 3:14 PM [...] get Thursday on the day of the pediatric intensive physician appointment) Continuing current regimen, though BP is mildly elevated Assessment & Plan (06/15/2022 12:55 PM WINDLASSER): The a1c is improving nicely, now at [...] reduction. Assessment & Plan (06/23/2023 12:43 PM WINDLASSER): A1c down slightly, still above 8% Will [...] continues atorvastatin Awaiting ortho follow-up for his CC tear Assessment & Plan (12/05/2021 6:16 PM [...] provided. Assessment & Plan (04/08/2023 10:59 AM WINDLASSER): BMI Follow-up includes: nutrition counseling, exercise counseling, and education provided. Assessment & Plan (06/15/2022 12:15 PM WINDLASSER): BMI Follow-up includes: nutrition counseling, exercise counseling [...] 07/12/2021 Assessment & Plan (07/12/2021 10:21 AM WINDLASSER): Likely was reflux-related rather than cardiac based on work up, however small abnormality was seen on lexiscan. Seeing pediatric intensive physician on Thursday I will want to get the full records from [facility] For now, continue the regimen after hospital [...] with type 2 diabetes mellitus 04/16/2021 06/15/2022 Encounters Date Type Department Care Team Description 08/01/2024 Telephone [facility] Cardiology [address] [facility] [address] [place] [phone] Alec Sanchez MD 07/21/2024 Telephone [facility] Primary Care at [address] [phone] Timoteo Sharpe MD 07/20/2024 Telephone [facility] Cardiology [address] [facility] [address] [place] [phone] Alec Sanchez MD 07/05/2024 11:00 AM WINDLASSER - 07/05/2024 11:59 PM WINDLASSER Hospital Encounter [facility] Nutrition and Diabetic Education [address] [place] [address] [address] [place] [id number] Mur[place], Maria Del Rosario Chow RD Discharge Disposition: Discharge to home or self care 07/01/2024 Telephone [facility] Primary Care at [address] [phone] Joann Walton MA 06/08/2024 2:00 PM WINDLASSER Office Visit [facility] Primary Care at [address] [phone] Timoteo Sharpe MD Hypertension associated with diabetes (HCC) (Primary Dx); Hyperlipidemia associated with type 2 diabetes mellitus (HCC); 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; Recurrent major depressive disorder, in full remission; Diabetic polyneuropathy associated with type 2 diabetes mellitus (HCC) 06/07/2024 1:30 PM WINDLASSER Office Visit [facility] Cardiology at [address] [place] [phone] Alec Sanchez MD Hypertension associated with diabetes (HCC) (Primary Dx); Hyperlipidemia associated with type 2 diabetes mellitus (HCC); 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; Stage 3b chronic kidney disease (HCC); Aneurysm of right common iliac artery 06/01/2024 10:11 AM WINDLASSER - 06/01/2024 11:59 PM WINDLASSER Hospital Encounter [address] [address] Benign prostatic hyperplasia with urinary obstruction; Obesity, diabetes, and hypertension syndrome (HCC); Stage 3b chronic kidney disease (HCC); Hyperlipidemia associated with type 2 diabetes mellitus (HCC) Discharge Disposition: Discharge to home or self care 06/01/2024 10:00 AM WINDLASSER Lab [facility] Outpatient Lab at [address] [phone] Hypertension associated with diabetes (HCC) (Primary Dx) 06/01/2024 Telephone [facility] Primary Care at [address] [phone] Timoteo Sharpe MD Additional Services Or Orders 05/26/2024 1:40 PM WINDLASSER Office Visit [facility]) - [address] Medical Office Building [address] [place] [address] Isha Yang MD Obstructive sleep apnea (Primary Dx); BMI 40.0-44.9, adult (HCC) 05/19/2024 Telephone [facility] Primary Care at [address] [phone] Timoteo Sharpe MD Medication Request 05/19/2024 Nurse Triage [facility] Primary Care at [address] [phone] Timoteo Sharpe MD 05/13/2024 11:45 AM WINDLASSER Office Visit [facility] Sleep Medicine at [address] [place] [phone] Tatiana Mejia MD Obstructive sleep apnea (Primary Dx); Hypersomnia; Obesity, unspecified class, unspecified obesity type, unspecified whether serious comorbidity present 05/13/2024 10:30 AM WINDLASSER - 05/13/2024 11:59 PM WINDLASSER Hospital Encounter [facility] Nutrition and Diabetic Education 1 [facility] Room [address] [place] [address] Twin, Maria Del Rosario Chow RD Discharge Disposition: Discharge to home or self care from Last 3 Months Immunizations Immunization Administration Dates Next Due Influenza, [...] (12+ YRS) 05/30/2021 Pneumococcal Conjugate Pcv20 03/18/2023 Surgical History Surgery Date Site/Laterality Comments PROSTATE SURGERY 05/25/2020 - 05/24/2021 CATARACT EXTRACTION, BILATERAL 05/25/2018 - 05/24/[address] ENT PLACEMENT Medical History Medical History Date Comments Hypertension Hematuria Erectile dysfunction Kidney stone Gout Visual impairment wears glasses Acid reflux Chest pain Sleep apnea Abnormal cardiovascular stress test Diabetes mellitus (HCC) CAD (coronary artery disease) CHF (congestive heart failure) (HCC) Type 2 diabetes mellitus (HCC) Eczema Chronic pain disorder Chest pain, unspecified type Family History Medical History Relation Name Comments Diabetes Father Esau Joseph Sr Heart disease Mother aMrialuisa Joseph Diabetes Other sibling Relation Name Status Comments Brother 1 Alive Brother 2 Alive Brother 3 Alive Brother 4 Alive Brother 5 Alive Brother 6 Alive Brother 7 Alive Brother 8 Alive Brother 9 Alive Father Esau Joseph Sr Mother Marialuisa Joseph Other sibling Other Sister 1 Alive Sister 2 Alive Sister 3 Alive Social History Tobacco Use Types Packs/Day Years [...] on file Legal Sex Male 7:26 PM WINDLASSER Gender Identity Not on file Sexual Orientation Not on file 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 Not on file Not on file Not on file Obstetrics History Last Filed Vital Signs Vital Sign Reading Time Taken Comments Blood Pressure 108/72 06/08/2024 2:00 PM WINDLASSER Pulse 67 06/08/2024 2:00 PM WINDLASSER Temperature 36.7 C (98 F) 06/08/2024 2:00 PM WINDLASSER Respiratory Rate 20 06/08/2024 2:00 PM WINDLASSER Oxygen Saturation 96% 06/08/2024 2:00 PM WINDLASSER Inhaled Oxygen Concentration - - Weight 127.5 kg (281 lb) 06/08/2024 2:00 PM WINDLASSER Height 175.3 cm (5' 9 ) 07/05/2024 2:15 PM WINDLASSER Body Mass Index 41.5 06/08/2024 2:00 PM WINDLASSER Plan of Treatment Upcoming Encounters Date Type Department Care Team (Latest Contact Info) Description 08/02/2024 11:00 AM CDT Hospital Encounter [facility] Cardiac Catheterization Lab [address] [place] [address] Ubaldo Cantu MD [address] [address] Chest pain, unspecified type 08/02/2024 11:00 AM CDT - 08/02/2024 12:30 PM CDT [facility] Cardiac Catheterization Lab [address] [place] [address] Ubaldo Cantu MD [address] [address] LEFT HEART CATHETERIZATION WITH CORONARY ANGIOGRAPHY AND WITH OR WITHOUT LEFT VENTRICULOGRAM [id number] 08/09/2024 10:00 AM CDT Hospital Encounter [facility] Operating Room [address] [place] [address] [place] [address] [address] 08/09/2024 10:00 AM CDT - 08/09/2024 10:30 AM CDT [facility] Operating Room [address] [place] [address] [place] [address] [facility] [address] [place], [place] [id number] DRUG INDUCED SLEEP ENDOSCOPY Scheduled Procedures Name Priority Associated Diagnoses Date/Ti me DRUG INDUCED SLEEP ENDOSCOPY EVAL FLEX DIAG NUVIA (obstructive sleep apnea) 08/09/2024 10:00 AM CDT Health Maintenance Due Date Last Done Comments DTaP/Tdap/Td Vaccine (1 - Tdap) 1961 Hepatitis B Screening 11/12/1967 Zoster Vaccine (1 of 2) 11/12/1999 Covid-19 Vaccine (5 - 2023-2 5 season) 2024 01/03/2022, 05/30/2021, 08/31/2020, Additional history exists Well Visit 65+ 04/08/2024 04/08/2023, 03/06/2021 Foot Exam 09/16/2024 09/17/2023, 08/23, 03/06/2021 Hemoglobin A1C 11/29/2024 06/01/2024, 02/23, 12/07/2023, Additional history exists Dilated Eye Exam 03/30/2025 03/30/2023, 10/2022, 04/01/2021 Albumin Creatinine Ratio, Urine 06/01/2025 06/01/2024, 02/25/2023, 06/06/2021 Lipid Panel 06/01/2025 06/01/2024, 11/22, 09/25/2023, Additional history exists eGFR 06/01/2025 06/01/2024, 11/22, 06/12/2023, Additional history exists Depression Screening 06/08/2025 06/08/2024, 04/04/2024, 04/04/2024, Additional history exists Fall Risk Assessment 07/27/2025 07/27/2024, 06/08/2024, 06/18/2023, Additional history exists Colon Cancer Screening-DNA Stool 04/18/2026 04/18/20 Prostate Cancer Screening-PSA 06/01/2026, 03/05/2022, 03/06/2021 Hepatitis C Screening Completed 03/06/2021 Abdominal Aortic Aneurysm (A AA) Screen Completed 03/19/2021 Pneumococcal vaccine 65+ Completed 03/18/2023 Colon Cancer Screening-FIT Discontinued 04/18/2023 Influenza Vaccine Completed 03/24/2024, , 02/21/2022, Additional history exists Medical Devices Implanted Type Area Ship Joiner Device Identifier Shelf Expiration Date Model / Serial / Lot [facility] V[facility] 3.5 X 15mm Torrey Hansford Rx Coronary Stent [id number] - [id number] Implanted:Qty: 1 on 07/29/2022 by Ubaldo Cantu MD at [facility] Vasc Surgery 10/11/2023 [id number] / / [id number] 001 Pictorious Angio-Seal Vip 6fr Closere Device [id number] - [id number] Implanted:Qty: 1 on 07/29/2022 by Ubaldo Cantu MD at [facility] [employer] 02/21/2023 [id number] / / [id number] Procedures Procedure Name Priority Date/Time Associated Diagnosis Comments EGFR Routine 06/01/2024 10:11 AM WINDLASSER Stage 3b chronic kidney disease (HCC) DIFFERENTIAL AUTO Routine 06/01/2024 10: 11 AM WINDLASSER Obesity, diabetes, and hypertension syndrome (HCC) Hyperlipidemia associated with type 2 diabetes mellitus (HCC) COMPREHENSIVE METABOLIC PANEL Routine 06/01/2024 10:11 AM WINDLASSER Stage 3b chronic kidney disease (HCC) CBC WITH AUTO DIFFERENTIAL Routine 06/01/2024 10:11 AM WINDLASSER Obesity, diabetes, and hypertension syndrome (HCC) Hyperlipidemia associated with type 2 diabetes mellitus (HCC) LIPID PANEL Routine 06/01/2024 10:11 AM WINDLASSER Hyperlipidemia associated with type 2 diabetes mellitus (HCC) HEMOGLOBIN A1C Routine 06/01/2024 10:11 AM WINDLASSER Obesity, diabetes, and hypertension syndrome (HCC) Hyperlipidemia associated with type 2 diabetes mellitus (HCC) ALBUMIN CREATININE RATIO, URINE Routine 06/01/2024 10:11 AM WINDLASSER Obesity, diabetes, and hypertension syndrome (HCC) Stage 3b chronic kidney disease (HCC) PSA SCREEN Routine 06/01/2024 10:11 AM WINDLASSER Benign prostatic hyperplasia with urinary obstruction STOOL DNA COLOGUARD Routine 04/18/2023 4:15 PM WINDLASSER Colon cancer screening DIABETES EYE EXAM Routine [...] Results * (ABNORMAL) eGFR (06/01/2024 10:11 AM WINDLASSER) eGFR 40(L) >=60 mL/min/1. 73 m2 Comment: [...] reviewed 2021. Blood 06/01/2024 10:1 1 AM WINDLASSER 06/01/2024 5:56 PM WINDLASSER us Timoteo Sharpe MD LAB BLOOD ORDERABLES Final Result [facility] [address] Department [place] [address] * Differential, auto (06/01/2024 10:11 AM WINDLASSER) Neutrophil abs 3.8 1.5 - 6.5 K/cumm Imm gran abs 0.0 0.0 - 0.1 K/cumm [facility] Lymphocyte abs 1.1 0.8 - 3.3 K/cumm [facility] Monocyte abs 0.5 0.2 - 0.8 K/cumm [facility] Eosinophil abs 0.2 0.0 - 0.5 K/cumm [facility] Basophil abs 0.0 0.0 - 0.1 K/cumm [facility] Neutrophil pct 68.2 % [facility] Comment: Interpretive Data Percent cell count reference ranges are not reported, since discordance with absolute values may lead to misinterpretation of CBC data. Current Interpretive Data was last revised on 2017. Imm gran pct 0.4 % [facility] Comment: Interpretive Data Percent cell count reference ranges are not reported, since discordance with absolute values may lead to misinterpretation of CBC data. Current Interpretive Data was last revised on 2017. Lymphocyte pct 18.7 % [facility] Comment: Interpretive Data Percent cell count reference ranges are not reported, since discordance with absolute values may lead to misinterpretation of CBC data. Current Interpretive Data was last revised on 2017. Monocyte pct 8.3 % [facility] Comment: Interpretive Data Percent cell count reference ranges are not reported, since discordance with absolute values may lead to misinterpretation of CBC data. Current Interpretive Data was last revised on 2017. Eosinophil pct 3.9 % [facility] Comment: Interpretive Data Percent cell count reference ranges are not reported, since discordance with absolute values may lead to misinterpretation of CBC data. Current Interpretive Data was last revised on 2017. Basophil pct 0.5 % [facility] Comment: Interpretive Data Percent cell count reference ranges are not reported, since discordance with absolute values may lead to misinterpretation of CBC data. Current Interpretive Data was last revised on 2017. Blood 06/01/2024 10:1 1 AM WINDLASSER 06/01/2024 5:56 PM WINDLASSER Timoteo Sharpe MD LAB BLOOD ORDERABLES Final Result Performing Organization Address City/[facility] Co de Phone Number [facility] [address] [place] [address] * PSA screen (06/01/2024 10:11 AM WINDLASSER) PSA-Total 1.50 <=6.20 ng/mL Comment: Interpretive Data [...] revised 21. Blood 06/01/2024 10:1 1 AM WINDLASSER 06/01/2024 5:56 PM WINDLASSER Timoteo Sharpe MD LAB BLOOD ORDERABLES Final Result Performing Organization Address City/[facility] Co de Phone Number [facility] [address] [place] [address] * (ABNORMAL) CBC with auto differential (06/01/2024 10:11 AM WINDLASSER) WBC 5.6 3.8 - 9.9 K/cumm Hgb 12.5(L) 13.0 - 17.5 g/dL [facility] Hct 40.8 38.9 - 50.3 % [facility] Plt 231 150 - 400 K/cumm [facility] MPV 9.7 9.1 - 12.3 fL [facility] RBC 4.49 4.30 - 5.80 M/cumm [facility] MCV 90.9 81.3 - 96.4 fL [facility] MCH 27.8 27.1 - 33.3 pg [facility] MCHC 30.6(L) 32.3 - 35.7 g/dL [facility] RDW CV 14.0 11.1 - 14.9 % [facility] RDW SD 46.5 35.7 - 48.1 fL [facility] NRBC abs 0.00 0.00 - 0.01 K/cumm [facility] Blood 06/01/2024 10:1 1 AM WINDLASSER 06/01/2024 5:56 PM WINDLASSER Timoteo Sharpe MD LAB BLOOD ORDERABLES Final Result Performing Organization Address [facility] Phone Number [facility] [address] [place] [address] * Albumin Creatinine Ratio, Urine (06/01/2024 10:11 AM WINDLASSER) Pathologist [facility] Albumin Ur 18.8 mg/L Comment: Interpretive Data No reference range established. Current interpretive data was last revised 2018. Creatinine Ur 204.0 mg/dL [facility] Comment: Interpretive Data No reference range established. Current interpretive data was last revised 2018. Albumin Creatinine Ratio, Ur 9 1 - 29 mg/g [facility] Urine 06/01/2024 10:1 1 AM WINDLASSER 06/01/2024 5:56 PM WINDLASSER Timoteo Sharpe MD LAB URINE ORDERABLES Final Result Performing Organization Address [facility] de Phone Number [facility] [address] [place] [address] * (ABNORMAL) Hemoglobin A1c (06/01/2024 10:11 AM WINDLASSER) Pathologist [facility] Hgb A1C 6.4(H) 4.0 - 5.6 % Estimated Average Glucose 137 mg/dL [facility] Comment: The ADA recommends reporting an estimated Average Glucose (eAG) with all Hemoglobin A1c results using the equation derived from a study of 507 normal and diabetic adults. Minority populations were underrepresented and children were not included. (Diabetes Care 31:2016-4683, 2008). The eAG is not equivalent to a fasting glucose. Blood 06/01/2024 10:1 1 AM WINDLASSER 06/01/2024 5:56 PM WINDLASSER us Timoteo Sharpe MD LAB BLOOD ORDERABLES Final Result [facility] [address] Department [place] [address] * Lipid panel (06/01/2024 10:11 AM WINDLASSER) Cholesterol 140 30 - 199 mg/dL Comment: [...] NCEP Expert Panel. Circulation 2004;110:227 3. Jameson Sorensen al. JOSEPH Cardiol. 2019September 22;5(5):540-548. doi: 10.1001/jamacardio.2020.0013 Current Interpretive Data was last revised on 2024. Non-HDL Cholesterol 93 mg/dL [facility] Comment: Interpretive Data Ages < or = [...] [facility] Blood 06/01/2024 10:1 1 AM WINDLASSER 06/01/2024 5:56 PM WINDLASSER us Timoteo Sharpe MD LAB [place] [address] [address] Department [place] [address] * (ABNORMAL) Comprehensive metabolic panel (06/01/2024 10:11 AM WINDLASSER) Sodium 143 135 - 145 mmol/L Potassium, [...] classification and Diagnosis of Diabetes Diabetes Care 2021; 46: S19-S40. Current interpretive data was last [...] [facility] Blood 06/01/2024 10:1 1 AM WINDLASSER 06/01/2024 5:56 PM WINDLASSER Timoteo Sharpe MD LAB BLOOD ORDERABLES Final Result Performing Organization Address City/[place] Number [place] [address] [address] Department [place] [address] * Stool DNA - Cologuard (04/18/2023 4:15 PM WINDLASSER) Pathologist [facility] Stool DNA - Cologuard Negative Negative [facility] (CLIA #:[id number]) Comment: NEGATIVE TEST RESULT. A negative Cologuard [...] screened with both Cologuard and colonoscopy. (Bozena T. et al, N Engl J Med 2014;370(14):8942-5221) The normal value (reference range) for this assay is negative. COLOGUARD RE-SCREENING RECOMMENDATION: Periodic colorectal cancer screening is an important part of preventive healthcare for asymptomatic individuals at average risk for colorectal cancer. Following a negative Cologuard result, the Canadian Cancer Society and U.S. Multi-Society Task Force screening guidelines recommend a Cologuard re-screening interval of 3 years. References: Canadian Cancer Society Guideline for Colorectal Cancer Screening: https://www.cancer.org/cancer/mjscf-moeybd-xklnag/djmbohpkf-ddtubjlgm-xiemyke/ac s-rec ommendations.html.; Rambo CAGLE, Sam SANTOS, Anaid BAIG, Colorectal Cancer Screening: Recommendations for Physicians and Patients from the U.S. Multi-Society Task Force on Colorectal Cancer Screening , Am J Gastroenterology 2017; 112:3603-0810. TEST DESCRIPTION: Composite algorithmic analysis of stool [...] Coughlin et al, N Engl J Med 2014;370(14):5686-2560.) Cologuard may produce a false negative or false positive result (no colorectal cancer or precancerous polyp present at colonoscopy follow up). A negative Cologuard test result does not guarantee the absence of CRC or advanced adenoma (pre-cancer). The current Cologuard screening interval is every 3 years. (Canadian Cancer Society and U.S. Multi-Society Task Force). Cologuard performance data in a 10,000 patient pivotal study using colonoscopy as the reference method can be accessed at the following location: www.Gen110.Plinga/results. Additional description of the Cologuard test process, warnings and precautions can be found at www.Silkrd.com. Stool 04/18/2023 4:15 PM WINDLASSER 04/21/2023 11:30 AM WINDLASSER us Timoteo Sharpe MD LAB BODY FLUIDS AND STOOLS ORDERABLES Final Result [facility] (CLIA #:[id number]) [address] [address] * DIABETES EYE EXAM (02/27/2023) us Historical Provider [facility] Edited Result - Final * US Abdominal [...] by Kodak Montes M.D. JR: Report ID: [id number] Reading Location: [id number] Procedure Note Kodak Montes MD - 03/19/2021 [...] by Kodak Montes M.D. JR: Report ID: [id number] Reading Location: [place] [address] Timoteo Sharpe MD IMG US PROCEDURES Final [...] 3:10 PM CDT 03/06/2021 8:51 PM CDT Timoteo Sharpe MD LAB MICROBIOLOGY - GENERAL ORDERABLES Final Result Performing Organization Address City/State/[facility] Co de Phone Number [facility] [address] Department [place] [address] from Last 3 Months or Most Recently Relevant to Health Maintenance Insurance [address] [place] [address] [employer] MEDICARE GOLD [employer] CHOICE MEDICARE PPO WORKERS COMPENSATION GENERIC MATHEWSADARSH NEWELL Advance Directives For more information, please contact: [phone] * Full Code (Latest Code Status on File) Date Activated Date Inactivated Comments 07/29/2022 12:26 PM 07/29/2022 8:20 PM * Full Code Date Activated Date Inactivated Comments 01/25/2021 7:09 PM 01/29/2021 6:54 PM * Full Code Date Activated Date Inactivated Comments 01/24/2021 3:16 PM 01/25/2021 1:31 PM * Full Code Date Activated Date Inactivated Comments 01/22/2021 9:10 PM 01/23/2021 9:30 PM Care Teams Segment Assembler Relationship Specialty Start Date End Date Timoteo Sharpe MD PCP - General Family Medicine 03/08/21 Solitario Vaughn MD Consulting Physician Urology 01/23/21 Maria Del Rosario Murcia RD [address] [place] [address] [place] [address] Dietitian 03/03/23 Evens Geronimo MD [address] [facility] [address] Referring Physician Orthopedic Surgery 03/24/24 [facility] [address] [place] [address], [phone] Physical Therapist Physical Therapy 04/04/22
--- OUTSIDE RECORDS SUMMARY | 2024-08-01 18:40 | XMS_ITS | Data Portability ---
[facility] [address] [place] [address] Assessment No assessment recorded. Plan of Treatment Reminders Order Date Submit Date Provider Last Modified By Organization Details Last Modified Time Details Appointments None recorded . Lab urinalys is, dipstick , reflex micro 2020 [facility] (Lab), [address], [place], [address], 21:20:44 HbA1c (hemoglo bin A1c), blood 2020 [facility] (Lab), [address], [place], [address], 06:11:27 CBC w/ auto diff 2020 [facility] (Lab), [address], [place], [address], 19:45:20 TSH, serum or plasma 2020 [facility] (Lab), [address], [place], [address], 19:50:45 lipid panel w/ direct LDL, serum 2020 [facility] (Lab), [address], [place], [address], 20:24:49 PSA, serum or plasma 2020 [facility] (Lab), [address], [place], [address], 08:14:55 urinalys is, dipstick , reflex micro 2020 m[facility] (Lab), [address], [place], [address], 14:17:24 vitamin D, 25-hydro xy, total, serum 2020 [facility] (Lab), [address], [place], [address], 07:11:33 Referral urologis t referral - high PSA. Renal stone. Bladder stone. Bladder mass Blood in urine. 2020 [facility], [address] [place] [address], [address], 10:02:21 urologis t referral 2020 [email or web address] Not available 13:56:40 Procedures None recorded . Surgeries None recorded . Imaging None recorded . Medication Orders Januvia 100 mg tablet 2020 alie [facility] [address], [address] [facility], [place], [address], 23:20:02 diltiaze m CD 120 mg capsule, extended release 24 hr 2020 [facility] [address], [address] [facility], [place], [address], 13:33:52 metformi n 1,000 mg tablet 2020 [facility] [address], [address] [facility], [place], [address], 13:04:30 glipizid e 10 mg tablet 2020 [facility] [address], [address] [facility], [place], [address], 13:04:32 doxazosi n 4 mg tablet 2020 [facility] [address], [address] [facility], [place], [address], 13:04:30 Cartia XT 120 mg capsule, extended release 2020 [facility] [address], [address] [facility], [place], [address], 13:04:32 telmisar tapia 80 mg-hydro chloroth iazide 25 mg tablet 2020 [facility] [address], [address] [facility], [place], [address], 13:04:29 Viagra 100 mg tablet 2020 [facility], [address] [place] [address], [address], 13:07:56 Patient TargetsNo targets recorded. Patient Instructions Encounter Date Encounter Id Patient Instructions Last Modified By Organization Details Last Modified Time 11/29/2020 [id number] learning about type 2 diabetes Not available 11/29/2020 12:58:24 type 2 diabetes: care instructions [email or web address] Not available 11/29/2020 12:58:24 learning about high blood pressure [email or web address] Not available 11/29/2020 12:58:24 Take your medications as directed. Keep adequate fluid intake. Keep cool this summer. Do not allow your body to become dehydrated. Decrease red meat. Increase vegetables & fruits. Please add exercise if you can. Get a little sunlight daily even if it's in your house. [email or web address] Not available 11/29/2020 21:00:24 I discuss the education of the disease process. Support and counseling given. I believe the metformin is safe. There is no conspiracy with it. Our social system in the [place] is poor. In our capitalistic society , we leave those behind who are older, hurt, or ill and suffering. All of the Socialized nations are doing better. We need a change. I discussed the Five An[place] to Good Health as it will benefit anyone in any disease process. [email or web address] Not available 11/29/2020 21:02:49 12/18/2020 [id number] osteoarthritis: care instructions Not available 12/18/2020 22:38:44 prostate biopsy: about this test [email or web address] Not available 12/18/2020 15:37:11 learning about type 2 diabetes [email or web address] Not available 12/18/2020 22:38:44 type 2 diabetes: care instructions [email or web address] Not available 12/18/2020 22:38:44 kidney stone: ca re instructions [email or web address] Not available 12/18/2020 15:36:30 learning about diet for kidney stone prevention [email or web address] Not available 12/18/2020 15:36:30 learning about high blood pressure [email or web address] Not available 12/18/2020 22:38:44 Take your medications as directed. Keep adequate fluid intake. Keep cool this summer. Do not allow your body to become dehydrated. Decrease red meat. Increase vegetables & fruits. Please add exercise if you can. Get a little sunlight daily even if it's in your house. Stay off the TEA right now. [email or web address] Not available 12/18/2020 22:38:10 I discuss the education & the understanding of the disease process. Support and counseling given. You can do more for yourself than anyone else. If we work together, we can get a better outcome. I discussed the Five Anita to Good Health as it will benefit anyone in any disease process. [email or web address] Not available 12/18/2020 22:38:21 12/21/2020 [id number] prostate biopsy: about this test Not available 12/21/2020 14:37:22 kidney stone: ca re instructions Not available 12/21/2020 14:37:22 learning about diet for kidney stone prevention Not available 12/21/2020 14:37:22 blood in the urine: care instructions Not available 12/21/2020 14:37:22 02/28/2021 [id number] osteoarthritis: care instructions Not available 02/28/2021 16:37:49 When You Want to Lose Weight: Care Instructions [email or web address] Not available 02/28/2021 16:37:49 learning about type 2 diabetes [email or web address] Not available 02/28/2021 16:37:49 type 2 diabetes: care instructions [id number] Not available 02/28/2021 16:37:49 type 2 diabetes: care instructions Not available 02/28/2021 13:36:19 learning about high blood pressure [email or web address] Not available 02/28/2021 13:33:47 benign prostatic hyperplasia: care instructions [email or web address] Not available 02/28/2021 16:37:50 Take your medications as directed. Keep adequate fluid intake. Keep cool this summer. Do not allow your body to become overheated or dehydrated. Decrease red meat. Increase vegetables & fruits. Please add exercise if you can. Get a little sunlight daily even if it's in your house. Let the shades up and let the sun shine in on you. [email or web address] Not available 02/28/2021 16:41:31 We discuss the disease process, the possible causes of the disease and possible treatments. The Medications & side effects are discussed. Some herb discussion done. We discussed some of the social issues that affect our health, and the things that need to be changed to make it better. We are in it together. We are all brothers and sisters. Support and counseling given. I discussed the 5 Anita to Good Health. They are the answer to almost all medical problems. [email or web address] Not available 02/28/2021 16:41:40 Reason for Referral Urologist Referral for Prost ate specific antigen above reference range Referring Physician: Brandon Villarreal, Family Medicine, Encounter Date: 12/18/2020 Urologist Referral for Prost ate specific antigen above reference range high PSA. Renal stone. Bladder stone. Bladder mass Blood in urine. Referring Physician: Román Shultz, Urology, Encounter Date: 12/21/2020 Results Created Date Observation Date Name Description Value Unit Range Abnormal Flag Note LastModifiedBy Organization Detail LastModifiedTime 11/30/19 21 11/29/2020 CBC W/DIF F WBC 6.2 K/uL 3.4-10 .8 Not Available [facility] (Lab) [address] [place], [address], 11/29/2020 19:45:20 11/30/19 21 11/29/2020 CBC W/DIF F red blood count 4.6 M/uL 4.5-6. 3 Not Available [facility] ([facility]) [address] [place], [address], 11/29/2020 19:45:20 11/30/19 21 11/29/2020 CBC W/DIF F hemoglobin 12.3 g/dL 13.5-1 7.5 low Not Available [facility] (Lab) [address] [facility], [place], [address], 11/29/2020 19:45:20 11/30/19 21 11/29/2020 CBC W/DIF F hematocrit 40.2 % 40.0-5 2.0 Not Available [facility] (Lab) [address] [place], [address], 11/29/2020 19:45:20 11/30/19 21 11/29/2020 CBC W/DIF F MCV 88 fL 80-95 Not Available [facility] (Lab) [address] [place], [address], 11/29/2020 19:45:20 11/30/19 21 11/29/2020 CBC W/DIF F MCH 27 pg 27-32 Not Available [facility] (Lab) [address] [place], [address], 11/29/2020 19:45:20 11/30/19 21 11/29/2020 CBC W/DIF F MCHC 31 g/dL 32-36 low Not Available [facility] (Lab) [address], [place], [address], 11/29/2020 19:45:20 11/30/19 21 11/29/2020 CBC W/DIF F platelets 310 K/uL 155-37 9 Not Available [facility] (Lab) [address] [facility], [place], [address], 11/29/2020 19:45:20 11/30/19 21 11/29/2020 CBC W/DIF F RDW 14.2 % 11.5-1 4.5 Not Available [facility] (Lab) [address] [place], [address], 11/29/2020 19:45:20 11/30/19 21 11/29/2020 CBC W/DIF F MPV 9.8 fL 8.9-12 .7 Not Available [facility] (Lab) [address] [facility], [place], [address], 11/29/2020 19:45:20 11/30/19 21 11/29/2020 CBC W/DIF F neutrophils absolute 4.4 K/uL 1.4-7. 0 Not Available [facility] (Lab) [address] [facility], [place], [address], 11/29/2020 19:45:20 11/30/19 21 11/29/2020 CBC W/DIF F lymphs (absolute) 1.2 K/uL 0.7-3. 1 Not Available [facility] (Lab) [address] [place], [address], 11/29/2020 19:45:20 11/30/19 21 11/29/2020 CBC W/DIF F monocytes (absolute) 0.5 K/uL 0.1-0. 9 Not Available [facility] (Lab) [address] [place], [address], 11/29/2020 19:45:20 11/30/19 21 11/29/2020 CBC W/DIF F eos (absolute) 0.2 K/uL 0.0-0. 4 Not Available [facility] (Lab) [address] [place], [address], 11/29/2020 19:45:20 11/30/19 21 11/29/2020 CBC W/DIF F baso (absolute) 0.0 K/uL 0.0-0. 3 Not Available [facility] (Lab) [address] [facility], [place], [address], 11/29/2020 19:45:20 11/30/19 21 11/29/2020 CBC W/DIF F neut % 69.9 % 40.0-7 4.0 Not Available [facility] (Lab) [address] [facility], [place], [address], 11/29/2020 19:45:20 11/30/19 21 11/29/2020 CBC W/DIF F lymphs % 19.4 % 14.0-4 6.0 Not Available [facility] (Lab) [address] [facility], [place], [address], 11/29/2020 19:45:20 11/30/19 21 11/29/2020 CBC W/DIF F mono % 7.9 % 4.0-12 .0 Not Available [facility] (Lab) [address] [facility], [place], [address], 11/29/2020 19:45:20 11/30/19 21 11/29/2020 CBC W/DIF F eos % 2 % 0-5 Not Available [facility] (Lab) [address] [facility], [place], [address], 11/29/2020 19:45:20 11/30/19 21 11/29/2020 CBC W/DIF F baso % 0.2 % 0.0-1. 0 Not Available [facility] (Lab) [address] [place], [address], 11/29/2020 19:45:20 11/30/19 21 11/29/2020 TSH (THYR OID STIMU LATIN G HORMO NE) TSH 1.03 uIU/m L 0.50-4 .50 Not Available [facility] (Lab) [address] [place], [address], 11/29/2020 19:50:45 11/30/19 21 11/29/2020 LIPID PANEL cholesterol 187.8 mg/dL 140.0- 200.0 Not Available [facility] (Lab) [address] [place], [address], 11/29/2020 20:24:49 11/30/19 21 11/29/2020 LIPID PANEL triglyceride s 86 mg/dL <=150 Not Available [facility] (Lab) [address] [place], [address], 11/29/2020 20:24:49 11/30/19 21 11/29/2020 LIPID PANEL HDL cholesterol 45.6 mg/dL 40.0-1 00.0 Not Available [facility] (Lab) [address] [place], [address], 11/29/2020 20:24:49 11/30/19 21 11/29/2020 LIPID PANEL LDL 133 mg/dL <=100 high Not Available [facility] (Lab) [address] [place], [address], 11/29/2020 20:24:49 11/30/19 21 11/29/2020 LIPID PANEL cholhdl 4.10 mg/dL 0.00-4 .98 Not Available [facility] (Lab) [address] [place], [address], 11/29/2020 20:24:49 11/30/19 21 11/29/2020 URINE MICRO SCOPI C EXAMI NATIO N urhead1 URINAL YSIS, COMPLE TE Ur inalys is Gross Exam Not Available [facility] (Lab) [address] [place], [address], 11/29/2020 21:00:59 11/30/19 21 11/29/2020 URINE MICRO SCOPI C EXAMI NATIO N urine-color LT. YELLOW yellow Not Available [facility] ([facility]) [address] [place], [address], 11/29/2020 21:00:59 11/30/19 21 11/29/2020 URINE MICRO SCOPI C EXAMI NATIO N appearance CLEAR clear Not Available [facility] ([facility]) [address] [place], [address], 11/29/2020 21:00:59 11/30/19 21 11/29/2020 URINE MICRO SCOPI C EXAMI NATIO N glucose NEGATI VE mg/dL negati ve Not Available [facility]) [address] [place], [address], 11/29/2020 21:00:59 11/30/19 21 11/29/2020 URINE MICRO SCOPI C EXAMI NATIO N bilirubin NEGATI VE negati ve Not Available [facility] ([facility]) [address] [place], [address], 11/29/2020 21:00:59 11/30/19 21 11/29/2020 URINE MICRO SCOPI C EXAMI NATIO N ketones NEGATI VE mg/dL negati ve Not Available [facility]) [address] [place], [address], 11/29/2020 21:00:59 11/30/19 21 11/29/2020 URINE MICRO SCOPI C EXAMI NATIO N specific gravity 1.015 1.001- 1.035 Not Available [facility] ([facility]) [address] [place], [address], 11/29/2020 21:00:59 11/30/19 21 11/29/2020 URINE MICRO SCOPI C EXAMI NATIO N occult blood NEGATI VE boston/u L negati ve Not Available [facility] ([facility]) [address] [place], [address], 11/29/2020 21:00:59 11/30/19 21 11/29/2020 URINE MICRO SCOPI C EXAMI NATIO N pH 8.0 5.0-7. 0 high Not Available [facility] (Lab) [address] [facility], [place], [address], 11/29/2020 21:00:59 11/30/19 21 11/29/2020 URINE MICRO SCOPI C EXAMI NATIO N protein 100 mg/dL negati ve abnormal Not Available [facility] (Lab) [address] [place], [address], 11/29/2020 21:00:59 11/30/19 21 11/29/2020 URINE MICRO SCOPI C EXAMI NATIO N urobilinogen 0.2 eu/dL <=1.[address] [facility] (Lab) [address] [facility], [place], [address], 11/29/2020 21:00:59 11/30/19 21 11/29/2020 URINE MICRO SCOPI C EXAMI NATIO N nitrite, urine NEGATI VE negati ve Not Available [facility] (Lab) [address] [facility], [place], [address], 11/29/2020 21:00:59 11/30/19 21 11/29/2020 URINE MICRO SCOPI C EXAMI NATIO N WBC esterase SMALL uL negati ve abnormal Not Available [facility] (Lab) [address] [place], [address], 11/29/2020 21:00:59 11/30/19 21 11/29/2020 URINE MICRO SCOPI C EXAMI NATIO N urhead2 Mi crosco pic Examin ation* Not Available [facility] (Lab) [address] [place], [address], 11/29/2020 21:00:59 11/30/19 21 11/29/2020 URINE MICRO SCOPI C EXAMI NATIO N WBC 15-30 hpf Not Available [facility] [address] [place], [address], 11/29/2020 21:00:59 11/30/19 21 11/29/2020 URINE MICRO SCOPI C EXAMI NATIO N RBC NONE SEEN Not Available [facility] (Lab) [address] [place], [address], 11/29/2020 21:00:59 11/30/19 21 11/29/2020 URINE MICRO SCOPI C EXAMI NATIO N epithelial cells 1+ epth/ hpf Not Available [facility] (Lab) [address] [facility], [place], [address], 11/29/2020 21:00:59 11/30/19 21 11/29/2020 URINE MICRO SCOPI C EXAMI NATIO N bacteria 2+ abnormal Not Available [facility] ([facility]) [address] [facility], [place], [address], 11/29/2020 21:00:59 11/30/19 21 11/29/2020 URINE MICRO SCOPI C EXAMI NATIO N urmucus Not Available [facility] (Lab) [address] [facility], [place], [address], 11/29/2020 21:00:59 11/30/19 21 11/29/2020 URINE MICRO SCOPI C EXAMI NATIO N uc reflex? YES no abnormal Not Available [facility] ([facility]) [address] [place], [address], 11/29/2020 21:00:59 11/30/19 21 11/30/2020 HEMOG LOBIN A1C hemoglobin A1C 8.8 % 4.8-5. 6 high . Predi abete s: 5.7 - 6.4 Diabe ritesh: >6.4 Glyce char contr ol for adult s with diabe ritesh: <7.0 Not Available [facility] (Lab) [address] [place], [address], 11/30/2020 06:11:27 11/30/19 21 11/30/2020 VIT D TOTAL , 25-HY DROXY , LC/MS /MS vitamin D, 25-hydroxy 30.5 NG/mL 30.0-1 00.0 Vitam in D defic iency has been defin ed by the Insti tute of Medic ine and an Endoc rine Socie ty pract ice guide line as a level of serum 25-OH vitam in D less than 20 ng/mL (1,2) . The Endoc rine Socie ty went on to furth er defin e vitam in D insuf ficie ncy as a level betwe en 21 and 29 ng/mL (2). 1. IOM (Inst itute of Medic ine). 2010. Dieta ry refer ence intak es for calci um and D. [place] park [place]: The [facility] . 2. Zeenat lombardi MF, Lauryn hernandez [place], Sesar off-F robbi i CAMARENA, et al. Evalu ation , treat ment, and preve ntion of vitam in D defic iency : an Endoc rine Socie ty clini gerald pract ice guide line. JCEM. 2010; 96(7) :1911 -30. Not Available [facility] (Lab) [address] [place], [address], 11/30/2020 07:11:32 11/30/1911/30/2020 PSA TOTAL prostate specific Ag, serum 5.2 NG/mL 0.0-4. 0 high Thuan ECLIA metho dolog y. . Accor ding to the Ameri can Urolo gical Assoc iatio n, Serum PSA shoul d decre ase and remai n at undet ectab le level s after radic al prost atect ramón. The AUA defin es bioch emica l recur rence as an initi al PSA value 0.2 ng/mL or great er follo wed by a subse quent confi rmato ry PSA value 0.2 ng/mL or great er. Value s obtai lawrence with diffe rent assay metho ds or kits canno t be used inter merlos misty . Resul ts canno t be inter prete d as absol pa[place] evide nce of the prese nce or absen ce of lisa vivar . Not Available [facility] (Lab) [address] [facility], [place], [address], 11/30/2020 08:14:55 12/05/19 21 12/05/[address]/NG /TV chlamydia by LAINA Negati ve negati ve Not Available [facility] (Lab) [address] [facility], [place], [address], 12/05/2020 23:07:28 12/05/19 21 12/05/[address]/NG /TV gonococcus by LAINA Negati ve negati ve Not Available [facility] (Lab) [address] [facility], [place], [address], 12/05/2020 23:07:28 12/05/19 21 12/05/[address]/NG /TV trich vag by LAINA Negati ve negati ve Not Available [facility] (Lab) [address] [facility], [place], [address], 12/05/2020 23:07:28 12/19/19 21 12/18/2020 URINA LYSIS urhead1 URINAL YSIS, COMPLE TE Ur inalys is Gross Exam Not Available [facility] (Lab) [address] [facility], [place], [address], 12/18/2020 21:20:44 12/19/19 21 12/18/2020 URINA LYSIS urine-color YELLOW yellow Not Available [facility] ([facility]) [address] [facility], [place], [address], 12/18/2020 21:20:44 12/19/19 21 12/18/2020 URINA LYSIS appearance CLEAR clear Not Available [facility] ([facility]) [address], [place], [address], 12/18/2020 21:20:44 12/19/19 21 12/18/2020 URINA LYSIS glucose 250 mg/dL negati ve abnormal Not Available [facility] (Lab) [address], [place], [address], 12/18/2020 21:20:44 12/19/19 21 12/18/2020 URINA LYSIS bilirubin NEGATI VE negati ve Not Available [facility] (Lab) [address], [place], [address], 12/18/2020 21:20:44 12/19/19 21 12/18/2020 URINA LYSIS ketones NEGATI VE mg/dL negati ve Not Available [facility] (Lab) [address], [place], [address], 12/18/2020 21:20:44 12/19/19 21 12/18/2020 URINA LYSIS specific gravity >=1.03 0 1.001- 1.035 Not Available [facility] (Lab) [address], [place], [address], 12/18/2020 21:20:44 12/19/19 21 12/18/2020 URINA LYSIS occult blood LARGE boston/u L negati ve abnormal Not Available [facility] (Lab) [address] [place], [address], 12/18/2020 21:20:44 12/19/19 21 12/18/2020 URINA LYSIS pH 6.0 5.0-7. 0 Not Available [facility] (Lab) [address], [place], [address], 12/18/2020 21:20:44 12/19/19 21 12/18/2020 URINA LYSIS protein 100 mg/dL negati ve abnormal Not Available [facility] (Lab) [address] [place], [address], 12/18/2020 21:20:44 12/19/19 21 12/18/2020 URINA LYSIS urobilinogen 0.2 eu/dL <=1.0 Not Available [facility] ([facility]) [address] [facility], [place], [address], 12/18/2020 21:20:44 12/19/19 21 12/18/2020 URINA LYSIS nitrite, urine NEGATI VE negati ve Not Available [facility] [address] [place], [address], 12/18/2020 21:20:44 12/19/19 21 12/18/2020 URINA LYSIS WBC esterase NEGATI VE uL negati ve Not Available [facility] (Lab) [address] [facility], [place], [address], 12/18/2020 21:20:44 12/22/19 21 12/04/2020 CT, abdom en + pelvi s, w/ contr ast No observ ation record ed. BARCODE Not Available 2020 16:16:51 Result Notes None recorded. Problems Name Problem SNOMED Code Status Onset Date Resolution Date Notes Provider Name and Address Organization Details Recorded Time Benign prostatic hyperplasia 308363525 Active 2020 Brandon Villarreal MD Attn: Accounting ,[address] [place], [address] , [place] - [facility] 16:37:52 Upper respiratory infection 93401537 Active Not Available [facility] 0 08:03:36 Osteoarthriti s 723480676 Active Not Available [facility] 0 08:03:36 Gastroesophag eal reflux disease 297454099 Active Not Available [facility] 0 08:03:36 Otitis externa 9848825 Active Not Available [facility] 0 08:03:36 Pityriasis versicolor 06287724 Active Not Available [facility] 0 08:03:36 Uncontrolled type 2 diabetes mellitus 759414002 Active Not Available [facility] 0 08:03:36 Pain in lower limb 80056052 Active Not Available [facility] 0 08:03:36 Type 2 diabetes mellitus 37428929 Active Not Available [facility] 0 08:03:36 Essential hypertension 31760947 Active Not Available [facility] 0 08:03:36 Obesity 265475079 Active Not Available [facility] 0 08:03:36 Arthritis 7537408 Active Not Available [facility] 0 08:03:36 Talipes planus 92397009 Active Not Available [facility] 0 08:03:36 Traumatic blister of thumb 085571939 Active Not Available [facility] 0 08:03:36 Notes:Some problems listed i n Document: #[id number] could not be added to this patient's chart. Please review this document and add these problems to the patient's chart manually as needed. Problem Notes None recorded. Procedures Surgical History None recorded. Imaging Results Imaging Date Name Status LastModified by [facility] Details LastModified Time 12/04/2020 CT, abdomen + pelvis, w/ contrast completed BARCODE Information not available 12/21/2020 16:16:51 Procedure Notes None recorded. Medical Equipment None Reported. Allergies No known drug allergies Medications Name Sig Start Date Stop Date Status Note LastModified by Organization Details LastModified Time telmisa/h ctz tab 80-25mg 11/29 completed Not Available Not Available Not Available doxazosin mesylate 4 mg tabs 11/29 completed Not Available Not Available Not Available accu-chek kit lucie pl 05/03 completed Not Available Not Available Not Available acetamino phen 500mg tab TAKE 2 TABLETS BY MOUTH EVERY 6 HOURS NEEDED FOR PAIN active Not Available Not Available No t Available cyclobenz aprine 10 mg tablet active Not Available Not Available No t Available amoxicill in 500 mg capsule Take 1 capsule 3 times a day by oral route. 2014 active Not Available Not Available Not Avai lable latanopro st 0.005 % eye drops INSTILL 1 DROP INTO EACH EYE AT BEDTIME active Not Available Not Available No t Available metformin 500 mg tablet TAKE 2 TABLETS BY MOUTH TWICE DAILY active Not Available Not Available No t Available doxazosin 1 mg tablet Take 1 tablet every day by oral route for 30 days. 10/31 completed Not Available Not Available Not Available azithromy gonzalez 250 mg tablet TAKE 2 TABLETS (500 MG) BY ORAL ROUTE ONCE DAILY FOR 1 DAY THEN 1 TABLET (250 MG) BY ORAL ROUTE ONCE DAILY FOR 4 DAYS 02/26 completed Not Available Not Available Not Available ibuprofen 800 mg tablet Take 1 tablet 3 times a day by oral route as needed. active Not Available Not Available No t Available ofloxacin 0.3 % eye drops active Not Available Not Available Not Available promethaz ine 6.25 mg/5 mL oral syrup Take 10 mL every 6 hours by oral route. 02/26 completed Not Available Not Available Not Available glipizide 10 mg tablet Take 1 tablet by mouth twice daily 2021 active Not Available Not Available Not Avai lable prednison e 20 mg tablet Take 1 tablet twice a day by oral route. 02/26 completed Not Available Not Available Not Available Diflucan 150 mg tablet Take 1 tablet by mouth now and repeat in 1 week 10/31 completed Not Available Not Available Not Available Accu-Chek Softclix Lancets active Not Available Not Available Not Available Zyrtec 10 mg tablet Take 1 tablet every day by oral route. 2019 active Not Available Not Available Not Avai lable amlodipin e 5 mg tablet Take 1 tablet every day by oral route. 11/29 completed Not Available Not Available Not Available ciproflox acin 500 mg tablet TAKE 1 TABLET BY MOUTH EVERY 12 HOURS 12/21 completed Not Available Not Available Not Available Depo-Medr ol 80 mg/mL suspensio n for injection 02/26 completed Not Available Not Available Not Available ketorolac 0.5 % eye drops active Not Available Not Available Not Available Celebrex 200 mg capsule TAKE 1 CAPSULE TWICE A DAY FOR PAIN 02/26 completed Not Available Not Available Not Available meloxicam 7.5 mg tablet Take 1 tablet every day by oral route. active Not Available Not Available No t Available diltiazem 120 mg tablet 2019 active Not Available Not Available Not Avai lable prednisol one acetate 1 % eye drops,mikal pension 07/13 completed Not Available Not Available Not Available phenazopy ridine 100 mg tablet TAKE 1 TABLET BY MOUTH THREE TIMES DAILY NEEDED URINARY PAIN FOR UP TO 15 DOSES active Not Available Not Available No t Available hydrocodo ne 7.5 mg-acetam inophen 325 mg tablet Take 1 tablet every 6 hours by oral route. 04/25 completed Not Available Not Available Not Available cephalexi n 500 mg capsule TAKE 1 CAPSULE BY MOUTH 4 TIMES DAILY FOR 7 DAYS active Not Available Not Available No t Available erythromy gonzalez 5 mg/gram (0.5 %) eye ointment APPLY 1 CM RIBBON INTO LOWER CONJUNCT IVAL SAC(S) OF THE AFFECTED EYE(S) 3 TIMES DAILY active Not Available Not Available No t Available metformin 1,000 mg tablet TAKE 1 TABLET BY MOUTH TWICE DAILY active Not Available Not Available No t Available neomycin- polymyxin -dexameth 3.5 mg/mL-10, 000 unit/mL-0 .1% eye drops INSTILL 1 DROP INTO AFFECTED EYE 4 TIMES DAILY FOR 7 DAYS active Not Available Not Available No t Available telmisart an 80 mg-hydroc hlorothia zide 12.5 mg tablet one tablet by mouth daily 12/20 completed Not Available Not Available Not Available gabapenti n 300 mg capsule Take 1 capsule 3 times a day by oral route. 2017 active Not Available Not Available Not Avai lable doxazosin 4 mg tablet Take 1 tablet by mouth once daily 2021 active Not Available Not Available Not Avai lable Pepcid 40 mg tablet Take 1 tablet every day by oral route. 2018 active Not Available Not Available Not Avai lable diltiazem CD 120 mg capsule,e xtended release 24 hr Take 1 capsule by mouth once daily 2020 active Not Available Not Available Not Avai lable dorzolami de 22.3 mg-timolo l 6.8 mg/mL eye drops active Not Available Not Available Not Available acetamino phen 300 mg-codein e 60 mg tablet Take 1 tablet every 6 hours by oral route. 04/25 completed Not Available Not Available Not Available Viagra 100 mg tablet Take 0.5 tablets every day by oral route as needed. 2020 active Not Available Not Available Not Avai lable ibuprofen 600 mg tablet TAKE 1 TABLET BY MOUTH EVERY 6 HOURS NEEDED FOR PAIN FOR UP TO 20 DOSES active Not Available Not Available No t Available Cortispor in-TC 3.3 mg-3 mg-10 mg-0.5 mg/mL ear drops,mikal pension Instill 3 drops 3 times a day by otic route for 10 days. 10/31 completed Classie Not Available Not Available Not Available fluticaso ne propionat e 50 mcg/actua tion nasal spray,mikal pension 2 sprays each nostril daily active Not Available Not Available No t Available glipizide 5 mg tablet TAKE ONE TABLET BY MOUTH TWICE DAILY 04/17 completed Not Available Not Available Not Available naproxen 500 mg tablet Take 1 tablet twice a day by oral route as needed. 05/03 completed Not Available Not Available Not Available doxazosin 2 mg tablet TAKE ONE TABLET BY MOUTH ONCE DAILY 02/26 completed Not Available Not Available Not Available amoxicill in 875 mg-potass ium clavulana te 125 mg tablet Take 1 tablet every 12 hours by oral route. 12/21 completed Not Available Not Available Not Available oxycodone 5 mg tablet active Not Available Not Available Not Available Benicar HCT 40 mg-12.5 mg tablet Take 1 tablet every day by oral route. 05/30 completed Not Available Not Available Not Available telmisart an 80 mg-hydroc hlorothia zide 25 mg tablet Take 1 tablet by mouth once daily 2021 active Not Available Not Available Not Avai lable Januvia 100 mg tablet 2020 active Not Available Not Available Not Avai lable Tradjenta 5 mg tablet Take 1 tablet every day by oral route. 2020 active Not Available Not Available Not Avai lable Accu-Chek Lucie Plus test strips active Not Available Not Available Not Available Jardiance 10 mg tablet active Not Available Not Available Not Available selenium sulfide 2.5 % lotion APPLY TO WET SCALP BY TOPICAL ROUTE ONCE WEEKLY WORK INTO A FULL LATHER, LEAVE ON SCALP FOR 2-3 MINUTES, RINSE THOROUGH LY, AND THEN PAT DRY 02/26 completed Not Available Not Available Not Available Vitals Date Recorded Body height Body mass index (BMI) Body weight Heart rate Body temperature Systolic blood pressure Diastolic blood pressure Provider Name and Address Organization Details Last Updated DateTime 1 187.96 cm 34.7 kg/m2 004112. 74 g 84 /min 98.9 [degF] 152 mm[Hg] 82 mm[Hg] Mary Reid MA [facility] 1 11:37:24 Date Recorded Body height Provider Name an d Address Organization Details Last Updated DateTime 12/11/2020 187.96 cm Mary Reid MA [facility]IF 12/12/19 21 16:03:40 Date Recorded Body height Body mass index (BMI) Body weight Body temperature Systolic blood pressure Diastolic blood pressure Provider Name and Address Organization Details Last Updated DateTime 1 187.96 cm 34 kg/m2 938618. 98 g 98.7 [degF] 158 mm[Hg] 91 mm[Hg] Mary Reid MA [facility] 1 14:25:06 Date Recorded Body height Body mass index (BMI) Body weight Body temperature Pain severity - 0-10 verbal numeric rating [Score] - Reported Heart rate Systolic blood pressure Diastolic blood pressure Provider Name and Address Organization Details Last Updated DateTime 1 187.96 cm 34.3 kg/m2 593521. 8 g 97.2 [degF] 0 92 /min 174 mm[Hg] 104 mm[Hg] Rochelle Trang [facility] 1 14:02:53 Social History Question Answer Notes LastModified by Organizat ion Details LastModified Time Tobacco Smoking Status Former Smoker Not Available [facility] 03/27/2020 03:39:30 What Is Your Level Of Alcohol Consumption? None Information not available 02/28/2021 What Is Your Level Of Caffeine Consumption? None Information not available 02/28/2021 What Was The Date Of Your Most Recent Tobacco Screening? 11/29/2020 Information not available 11/29/2020 Do You Feel Stressed (tense, Restless, Nervous, Or Anxious, Or Unable To Sleep At Night)? [id number] Information not available 02/28/2021 Do You Use Any Illicit Or Recreational Drugs? No Information not available 02/28/2021 Has Tobacco Cessation Counseling Been Provided? No Information not available 02/28/2021 How Many Years Have You Smoked Tobacco? 20 [id number] Information not available 03/27/2020 Sex: Unknown Functional Status None recorded. Mental Status None recorded. Family History Relationship Description Onset Age of this Age Resolved Age Notes LastModified by Organization Details LastModified Time Mother Heart disease llathon Not available 2013 14:35:08 Father Diabetes mellitus llathon Not available 2013 14:35:08 Father Hypertensive disorder llathon Not available 2013 14:35:08 Sister Diabetes mellitus llathon Not available 2013 14:35:08 Sister Hypercholest erolemia llathon Not available 2013 14:35:08 Medical History Condition Response Coronary Artery Disease N Other N Atrial Fibrillation N High Blood Pressure Y Depression N COPD N Blood Clots N Anxiety Disorder N Muscle, Joint, or Bone Problems N Acid Reflux (GERD) N Cancer N Stroke N ADHD N High Cholesterol N Liver Disease N Schizophrenia N Headaches N Kidney or Bladder Problems N Thyroid Problems N GI Problems N Eating Disorder N Skin Problems N Anemia N Heart Attack (PA) N Diabetes Y Seizures/Epilepsy N Asthma N Allergies N Substance Abuse N Hepatitis N Osteoporosis N Heart Failure N Immunizations Vaccine Type Date Status Note Provider Nam e and Address Organization Details Recorded Time Influenza, split virus, quadrivalent, PF 6 completed Not Available [facility] 06/11/2019 02:43:45 Influenza, split virus, quadrivalent, preservative 8 completed Not Available [facility] 06/11/2019 02:47:15 Influenza, split virus, quadrivalent, preservative 9 completed Not Available [facility] 06/11/2019 02:38:12 COVID-19, mRNA, LNP-S, PF, 100 mcg/0.5mL dose or 50 mcg/0.25mL dose 1 completed FLOR Schmid, DAVE [facility] 08/03/2020 17:58:44 COVID-19, mRNA, LNP-S, PF, 100 mcg/0.5mL dose or 50 mcg/0.25mL dose 1 completed FLOR Schmid, DAVE [facility]ie [facility] 08/31/2020 14:30:27 Past Encounters Encounter ID Performer Location Encounter Start Date Encounter Closed Date Diagnosis/Indication Diagnosis SNOMED-CT Code Diagnosis ICD10 Code Diagnosis Note [id number] [facility] Villarreal [facility] [address] [place] [address] 05/12/2014 14:03:16 05/12/2014 16:07:47 Type 2 diabetes mellitus 91023024 Essential hypertension 37805638 Obesity 778978515 [id number] Brandon Villarreal [facility] [address] [place] [address] 08/11/2014 14:06:35 08/11/2014 16:11:57 Upper respiratory infection 65484015 Essential hypertension 89862638 Type 2 david betes mellitus 02146141 Obesity 319275512 Osteoarthritis 033482375 Gastroesop hageal reflux disease 852796702 [id number] Luisana Alexander [facility] [address] [place] [address] 12/01/2014 15:53:33 12/04/2014 10:25:33 Essential hypertension 97061363 Osteoarthritis 198811742 Obesity 581968529 Type 2 advid betes mellitus 43855991 Gastroesop hageal reflux disease 038552084 Otitis externa 7303046 Pityriasis versicolor 03188088 [id number] Brandon Villarreal MD [facility] (Adult Med) [address] [place] [address] 04/13/2015 15:25:17 04/13/2015 17:23:55 Osteoarthritis 017939862 M19.90 Type 2 david betes mellitus 75109935 E11.42 Essential hypertension 20756808 I10 Gastroesop hageal reflux disease 388405915 K21.9 Obesity 747003719 E66.9 [id number] Brandon Villarreal MD [facility] (Adult Med) [address] [place] [address] 07/20/2015 14:12:45 07/20/2015 16:00:46 Essential hypertension 88093794 I10 Gastroesop hageal reflux disease 185238026 K21.9 Type 2 david betes mellitus 41202264 E11.42 Uncontroll ed type 2 diabetes mellitus 364977577 E11.65 Pain in lower limb 57401 006 M79.609 [id number] Brandon Villarreal MD [facility] (Adult Med) [address] [place] [address] 08/31/2015 14:53:16 08/31/2015 17:32:45 Type 2 diabetes mellitus 63460193 E11.42 Pityriasis versicolor 56 030366 B36.0 Gastroesop hageal reflux disease 031609872 K21.9 Pain in lower limb 83991 006 M79.609 [id number] Brandon Villarreal MD [facility] (Adult Med) [address] [place] [address] 09/25/2015 15:00:51 09/25/2015 17:23:37 Essential hypertension 99242484 I10 Gastroesop hageal reflux disease 997497921 K21.9 Obesity 832508163 E66.9 Osteoarthritis 158556202 M19.90 Uncontroll ed type 2 diabetes mellitus 083404473 E11.65 Arthritis 9122719 M19.90 Knee Pain in lower limb 82825 006 M79.609 [id number] Brandon Villarreal MD [facility] (Adult Med) [address] [place] [address] 10/12/2015 14:53:52 10/12/2015 16:06:37 Uncontrolled type 2 diabetes mellitus 681560025 E11.65 Essential hypertension 56898109 I10 Gastroesop hageal reflux disease 825291595 K21.9 Obesity 411712034 E66.9 Osteoarthritis 086226300 M19.90 Type 2 david betes mellitus 74626875 E11.42 [id number] MD Tripp Medinawilliam [facility] (Adult Med) [address] [place] [address] 02/01/2016 14:49:10 02/01/2016 16:55:40 Uncontrolled type 2 diabetes mellitus 813539316 E11.65 Type 2 david betes mellitus 69648850 E11.42 Essential hypertension 86550726 I10 Gastroesop hageal reflux disease 522202119 K21.9 Osteoarthritis 555220135 M19.90 Pain in lower limb 81166 006 M79.609 Talipes planus 01697335 M21.40 [id number] MD Tripp Medinawilliam [facility] (Adult Med) [address] [place] [address] 02/22/2016 14:45:36 02/22/2016 16:24:06 Traumatic blister of thumb 768454938 S60.322A Pityriasis versicolor 56 898427 B36.0 Essential hypertension 48230600 I10 Obesity 212104211 E66.9 Osteoarthritis 074975641 M19.90 Uncontroll ed type 2 diabetes mellitus 977905031 E11.65 [id number] Brandon Villarreal MD [facility] (Adult Med) [address] [place] [address] 05/30/2016 13:51:32 05/30/2016 16:38:10 Traumatic blister of thumb 070598054 S60.322A Osteoarthritis 501126644 M19.90 Type 2 david betes mellitus 44960740 E11.42 Talipes planus 57794617 M21.40 Upper resp iratory infection 25250041 J06.9 Essential hypertension 12823226 I10 [id number] Brandon Villarreal MD [facility] (Adult Med) [address] [place] [address] 07/28/2016 12:02:52 07/28/2016 13:04:27 Essential hypertension 10276633 I10 Osteoarthritis 412428672 M19.90 Type 2 david betes mellitus 89943421 E11.42 Gastroesop hageal reflux disease 801910845 K21.9 [id number] Brandon Villarreal MD [facility] (Adult Med) [address] [place] [address] 08/29/2016 14:00:38 08/29/2016 16:07:38 Upper respiratory infection 10097949 J06.9 Type 2 davdi betes mellitus 39186719 E11.42 Gastroesop hageal reflux disease 889718142 K21.9 Arthritis 2586889 M19.90 Knee Osteoarthritis 673489209 M19.90 Obesity 746516451 E66.9 [id number] Brandon Villarreal MD [facility] (Adult Med) [address] [place] [address] 10/31/2016 14:10:23 10/31/2016 16:15:44 Essential hypertension 69248370 I10 Uncontroll ed type 2 diabetes mellitus 904811612 E11.65 Gastroesop hageal reflux disease 932086823 K21.9 Arthritis 8501239 M19.90 Knee Osteoarthritis 979292704 M19.90 Type 2 david betes mellitus 96293273 E11.42 [id number] Brandon Villarreal MD [facility] (Adult Med) [address] [place] [address] 01/09/2017 14:58:07 01/09/2017 15:52:26 Sprain of ankle 41337415 S93.402A Type 2 david betes mellitus 88612616 E11.42 Talipes planus 82470693 M21.40 Essential hypertension 85903441 I10 Osteoarthritis 155983570 M19.90 Obesity 273476237 E66.9 Gastroesop hageal reflux disease 131839958 K21.9 [id number] Brandon Villarreal MD [facility] (Adult Med) [address] [place] [address] 04/17/2017 16:26:38 04/22/2017 10:36:03 Upper respiratory infection 27445678 J06.9 Sprain of ankle 17704165 S93.402A Essential hypertension 03119633 I10 Uncontroll ed type 2 diabetes mellitus 009916567 E11.65 Gastroesop hageal reflux disease 284792602 K21.9 Seborrheic dermatitis 50 513084 L21.9 [id number] Brandon Villarreal MD [facility] (Adult Med) [address] [place] [address] 05/29/2017 16:10:02 06/01/2017 16:45:21 Essential hypertension 73266218 I10 Gastroesop hageal reflux disease 694901685 K21.9 Uncontroll ed type 2 diabetes mellitus 154389753 E11.65 Arthritis 8739503 M19.90 Knee Osteoarthritis 093051963 M19.90 Obesity 620850736 E66.9 Type 2 david betes mellitus 00038398 E11.42 [id number] Brandon Villarreal MD [facility] (Adult Med) [address] [place] [address] 08/28/2017 15:37:19 08/28/2017 17:31:16 Essential hypertension 48263163 I10 Uncontroll ed type 2 diabetes mellitus 044560777 E11.65 Gastroesop hageal reflux disease 912732095 K21.9 Arthritis 6623206 M19.90 Knee Osteoarthritis 470470925 M19.90 [id number] Brandon Villarreal MD [facility] (Adult Med) [address] [place] [address] 11/27/2017 16:29:11 11/30/2017 16:11:24 Type 2 diabetes mellitus 62090206 E11.42 Upper resp iratory infection 35791340 J06.9 Essential hypertension 09654646 I10 Osteoarthritis 732249668 M19.90 Gastroesop hageal reflux disease 618541274 K21.9 Uncontroll ed type 2 diabetes mellitus 855029302 E11.65 Chronic ob structive pulmonary disease 82599276 J44.9 Low back pain 125744826 M54.5 Coronary arteriosclerosis 14241879 I25.10 Adult [facility] th examination 078049617 Z00.00 [id number] Brandon Villarreal MD [facility] (Adult Med) [address] [place] [address] 02/26/2018 16:09:32 03/05/2018 10:30:05 Type 2 diabetes mellitus 68875976 E11.42 Administra tion of influenza vaccine 84863009 Z23 Essential hypertension 72593016 I10 Uncontroll ed type 2 diabetes mellitus 630859346 E11.65 Gastroesop hageal reflux disease 748227406 K21.9 Foot pain 40894075 M79.6 73 Osteoarthritis 083453970 M19.90 Obesity 903586545 E66.9 [id number] Brandon Villarreal MD [facility] (Adult Med) [address] [place] [address] 03/12/2018 14:50:55 03/22/2018 16:59:20 Arthritis 0305067 M19.90 Knee Type 2 david betes mellitus 95784609 E11.42 Obesity 688117813 E66.9 Low back strain 32365251 1 S39.012A Neck pain 23016794 M54.2 [id number] Brandon Villarreal MD [facility] (Adult Med) [address] [place] [address] 04/12/2018 14:05:26 04/12/2018 16:14:31 Low back pain 096146612 M54.5 Uncontroll ed type 2 diabetes mellitus 769643624 E11.65 Gastroesop hageal reflux disease 553225709 K21.9 Traumatic blister of thumb 076709668 S60.322A Essential hypertension 46739510 I10 [id number] [facility] [address] [place] [address] 05/03/2018 12:01:25 05/03/2018 14:18:40 Essential hypertension 37498578 I10 Uncontroll ed type 2 diabetes mellitus 555298087 E11.65 Gastroesop hageal reflux disease 878719333 K21.9 Osteoarthritis 895040918 M19.90 Type 2 david betes mellitus 94570563 E11.42 Upper resp iratory infection 05030242 J06.9 [id number] Brnadon Villarreal MD [facility] (Adult Med) [address] [place] [address] 06/18/2018 15:11:33 06/21/2018 08:09:15 Type 2 diabetes mellitus 57741649 E11.42 Spinal gemma nosis of lumbar region 45844365 M48.061 Essential hypertension 21411663 I10 [id number] Brandon Villarreal MD [facility] (Adult Med) [address] [place] [address] 08/16/2018 16:22:51 08/17/2018 08:44:09 Essential hypertension 38084056 I10 Gastroesop hageal reflux disease 682900930 K21.9 Uncontroll ed type 2 diabetes mellitus 317926790 E11.65 Talipes planus 23667728 M21.40 [id number] Brandon Villarreal MD [facility] (Adult Med) [address] [place] [address] 11/15/2018 16:35:56 11/16/2018 08:12:12 Type 2 diabetes mellitus 18493829 E11.42 Essential hypertension 15265537 I10 Uncontroll ed type 2 diabetes mellitus 068507817 E11.65 Gastroesop hageal reflux disease 164930968 K21.9 Osteoarthritis 586180343 M19.90 Obesity 992288528 E66.9 [id number] Brandon Villarreal MD [facility] (Adult Med) [address] [place] [address] 12/20/2018 16:30:29 12/21/2018 11:23:05 Uncontrolled type 2 diabetes mellitus 260079310 E11.65 Essential hypertension 48688887 I10 Type 2 david betes mellitus 06716482 E11.42 Obesity 199458230 E66.9 Osteoarthritis 086881623 M19.90 Arthritis 4244563 M19.90 Knee [id number] Brandon Villarreal MD [facility] (Adult Med) [address] [place] [address] 02/21/2019 16:28:51 02/23/2019 08:55:10 Type 2 diabetes mellitus 90883602 E11.42 Uncontroll ed type 2 diabetes mellitus 073506817 E11.65 Essential hypertension 12104058 I10 Gastroesop hageal reflux disease 526218909 K21.9 Administra tion of influenza vaccine 93693616 Z23 [id number] Kami Johnson PA-C [facility] (Adult Med) [address] [place] [address] 04/25/2019 15:37:59 04/26/2019 14:13:25 Increased frequency of urination 416711463 R35.0 1month history of blood in urine and urinary frequencyp atient admits that these symptoms began after he started drinking beet juice he has since discontinu ed the beet juice, but is still symptomati c I will send urine out for culture, cristino/chlmyi da cipro 500mg bid x 7days sent to pharmacy referral to urology patient instructed to keep appointmen t with Dr. Villarreal as directed Essential hypertension 47776211 I10 blood pressure elevated due to missing dosages of medication currently stablestre ssed the importance of taking medication as directedcu rrently on doxazosin 4mg, amlodipine 5mg, telmisarta n/hctz 80/25mgpat ient instructed to follow up with Dr. Villarreal as directedhe understand s to go to ED if in severe distress Blood in urine 74057578 R31.9 1month history of blood in urinepatie nt admits that these symptoms began after he started drinking beet juicehe has since discontinu ed the beet juice, but is still symptomati cI will send urine out for culture, cristino/chlmyi dacipro 500[facility] instructed to keep appointmen t with Dr. Villarreal as directed Type 2 david betes mellitus 02576903 E11.9 02/21/19 hgba1c: 5.7patient to continue metformin 1000mg bid and glipizide 10mg bidreferra l placed for podiatry [id number] Brandon Villarreal MD [facility] (Adult Med) [address] [place] [address] 05/10/2019 14:46:15 05/11/2019 07:59:16 Osteoarthritis 784172854 M19.90 Obesity 559196957 E66.9 Essential hypertension 55984827 I10 Type 2 david betes mellitus 83252083 E11.42 Uncontroll ed type 2 diabetes mellitus 622403393 E11.65 Upper resp iratory infection 32293765 J06.9 Prostatitis 8351301 N41. 9 Gastroesop hageal reflux disease 980611305 K21.9 [id number] Brandon Villarreal MD [facility] (Adult Med) [address] [place] [address] 08/16/2019 11:54:09 08/16/2019 15:06:09 Uncontrolled type 2 diabetes mellitus 441521273 E11.65 Essential hypertension 62963733 I10 Gastroesop hageal reflux disease 574968588 K21.9 Obesity 127533915 E66.9 Osteoarthritis 325178887 M19.90 Type 2 david betes mellitus 00251008 E11.42 Sinusitis 66587117 J32.9 [id number] Brandon Villarreal MD [facility] (Adult Med) [address] [place] [address] 11/07/2019 10:16:20 11/07/2019 16:31:20 [id number] Berta Newton RN [facility] (Adult Med) [address] [place] [address] 08/03/2020 13:05:49 08/06/2020 07:14:44 Administration of SARS-CoV-2 antigen vaccine 189853096 Z23 [id number] Berta Newton RN [facility] (Adult Med) [address] [place] [address] 08/31/2020 13:02:54 09/05/2020 14:31:30 Administration of SARS-CoV-2 antigen vaccine 707865629 Z23 [id number] Brandon Villarreal MD [facility] (Adult Med) [address] [facility] [place] [address] 11/29/2020 11:13:44 12/03/2020 09:30:20 Essential hypertension 76995267 I10 Type 2 david betes mellitus 62591625 E11.42 Erectile d ysfunction due to type 2 diabetes mellitus 290291967 N52.1 [id number] Brandon Villarreal MD [facility] (Adult Med) [address] [place] [address] 12/11/2020 15:37:25 12/20/2020 03:47:26 [id number] Román Shultz MD [facility] [facility] [address] [place] [address] 12/21/2020 13:43:52 12/24/2020 16:06:00 Prostate specific antigen above reference range [id number] R97.20 Nocturia 353853063 R35.1 Kidney stone 30030876 N2 0.0 Urinary bladder stone 70 632215 N21.0 Mass of ur inary bladder 072627819 N32.89 Blood in urine 18886890 R31.9 [id number] Brandon Villarreal MD [facility] (Adult Med) [address] [place] [address] 12/18/2020 13:48:15 12/19/2020 07:09:17 Kidney stone 66076926 N20.0 Prostate s pecific antigen above reference range 666715654 R97.20 Essential hypertension 02181140 I10 Osteoarthritis 831451158 M19.90 Type 2 david betes mellitus 97284544 E11.42 [id number] Brandon Villarreal MD [facility] (Adult Med) [address] [place] [address] 02/28/2021 09:55:52 03/01/2021 08:31:48 Essential hypertension 14071809 I10 Uncontroll ed type 2 diabetes mellitus 961585157 E11.65 Obesity 551546553 E66.9 Osteoarthritis 479670951 M19.90 Type 2 david betes mellitus 65628410 E11.42 Benign pro static hyperplasia 056416691 N40.1 Post TURP Health Concerns Section Related Observation LastModified by Organization Detai ls LastModified Time None Recorded Concern Status LastModified by Organization Details LastModified Time None Recorded Advance Directives Directive None Recorded Payers Encounter Date Sequence Insurance Name Policy Number Policy Yo Covered Member ID Yo Member ID Guarantor Name 11/29/[address] [facility] (MEDICARE REPLACEMENT HMO) Esau Joseph Jr [id number] Esau Joseph 12/11/2020 1 [facility] (MEDICARE REPLACEMENT HMO) Esau Jake Gage [id number] Esau Joseph 12/18/2020 1 [employer] [place] (MEDICARE [place]) Esau Joseph Jr [id number] Esau Joseph 12/21/2020 1 [facility] (MEDICARE REPLACEMENT HMO) Esau Jake Gage [id number] Esau Joseph 02/28/2021 1 [facility] (MEDICARE REPLACEMENT HMO) Esau Joseph Jr [id number] Esau Joseph Notes Date Note Type Note Provider Name and Address Organization Details Recorded Time 11/29/2020 text/html The pt. comes in today for yearly evaluation. He is doing better overall. He had his covid vaccines. He is bothered with ED now. This just started less than a year ago. The Eye Dr. told him he had glaucoma. He has a knot on his side that has been there since he was a teenager. His girlfriend squeezed the stuff out of it and it grew back. He asks about the safety of the metformin. Brandon Villarreal MD Attn: Accounting,[address] [facility], [place], [address], [facility] 11/29/2020 21:03:06 12/11/2020 text/html He did not answe r 2 calls. Brandon Villarreal MD Attn: Accounting,[address] [facility], [place], [address], [facility] 12/11/2020 23:03:21 12/18/2020 text/html In the office fo r follow up for some blood in his urine. He was diagnosed with kidney stones in the emergency room. His urine is clear right now. He was drinking a lot of tea before this happened. The emergency room did not give him any medications. He got the antibiotics that I prescribed for him and finished the last one on yesterday. Brandon Villarreal MD Attn: Accounting,[address], [place], [address], [facility] 12/18/2020 22:38:49 12/21/2020 text/html Went to ER for voiding gross blood (painless). Imaging shows non-obstructing right renal stone and bladder stone with either soft tissue mass or enlarged prostate on imaging. PSA 5.2 this year. Sexually active without complaint. Three voids last night. Drinks daily tea. Román Shultz MD [address] [facility], [place], [address], [facility] 12/21/2020 14:37:55 02/28/2021 text/html Phone visit: See nurses note. Follow up. Doing ok now. He had a ? TURP. The bx was negative for cancer. IT has effected his ability to get an erection. His bs's have been high lately. He needs the cartia. Brandon Villarreal MD Attn: Accounting,[address] , [place], [address], [facility] 02/28/2021 16:41:57
--- OUTSIDE RECORDS SUMMARY | 2024-08-01 18:41 | XMS_ITS | Continuity of Care Document ---
Author Organization [facility] [place] Address [address] [facility] [address] [place] [address] Phone Care Team Providers Care Electric Razor Assembler Name Role Phone Elian Anne Unavailable Procedures Procedure Date Therapeutic Activities Neuromuscular Re-Ed Therapeutic Exercise AIR POLLUTION ENGINEER Acute Therapeutic Activities Neuromuscular Re-Ed Therapeutic Exercise Progress Note Therapeutic Activities Neuromuscular Re-Ed Therapeutic Exercise Therapeutic Activities Neuromuscular Re-Ed Therapeutic Exercise Therapeutic Activities Neuromuscular Re-Ed Therapeutic Exercise Hot or Cold Pack Therapeutic Activities Neuromuscular Re-Ed Therapeutic Exercise Therapeutic Activities Neuromuscular Re-Ed Therapeutic Exercise Hot or Cold Pack Therapeutic Activities Neuromuscular Re-Ed Therapeutic Exercise Hot or Cold Pack Electrical Stimulation AIR POLLUTION ENGINEER Acute Neuromuscular Re-Ed Therapeutic Activities Therapeutic Exercise Hot or Cold Pack Electrical Stimulation Therapeutic Activities Neuromuscular Re-Ed Therapeutic Exercise Manual Therapy Electrical Stimulation Hot or Cold Pack Therapeutic Activities Neuromuscular Re-Ed Therapeutic Exercise Hot or Cold Pack Therapeutic Activities Neuromuscular Re-Ed Therapeutic Exercise Manual Therapy Hot or Cold Pack Therapeutic Activities Neuromuscular Re-Ed Therapeutic Exercise Hot or Cold Pack AIR POLLUTION ENGINEER Acute Therapeutic Activities Neuromuscular Re-Ed Therapeutic Exercise Manual Therapy Hot or Cold Pack Therapeutic Activities Neuromuscular Re-Ed Therapeutic Exercise Manual Therapy Hot or Cold Pack Progress Note Therapeutic Activities Neuromuscular Re-Ed Therapeutic Exercise Manual Therapy Hot or Cold Pack Therapeutic Activities Neuromuscular Re-Ed Therapeutic Exercise Manual Therapy Therapeutic Activities Neuromuscular Re-Ed Therapeutic Exercise Manual Therapy Hot or Cold Pack Therapeutic Activities Neuromuscular Re-Ed Therapeutic Exercise Manual Therapy Hot or Cold Pack Therapeutic Activities Neuromuscular Re-Ed Therapeutic Exercise Manual Therapy Therapeutic Activities Neuromuscular Re-Ed Therapeutic Exercise Manual Therapy Hot or Cold Pack AIR POLLUTION ENGINEER Acute Therapeutic Activities Neuromuscular Re-Ed Therapeutic Exercise Manual Therapy Hot or Cold Pack Therapeutic Activities Neuromuscular Re-Ed Therapeutic Exercise Manual Therapy Hot or Cold Pack Therapeutic Activities Neuromuscular Re-Ed Therapeutic Exercise Manual Therapy Hot or Cold Pack Therapeutic Activities Neuromuscular Re-Ed Therapeutic Exercise Electrical Stimulation Hot or Cold Pack Progress Note Therapeutic Activities Neuromuscular Re-Ed Therapeutic Exercise Manual Therapy Hot or Cold Pack Electrical Stimulation Therapeutic Activities Neuromuscular Re-Ed Therapeutic Exercise Manual Therapy Hot or Cold Pack Electrical Stimulation Therapeutic Activities Neuromuscular Re-Ed Therapeutic Exercise Manual Therapy Hot or Cold Pack Electrical Stimulation Therapeutic Activities Neuromuscular Re-Ed Therapeutic Exercise Manual Therapy Hot or Cold Pack Electrical Stimulation Therapeutic Activities Therapeutic Exercise Neuromuscular Re-Ed Manual Therapy Hot or Cold Pack Doc neg elder mal no plan PT Evaluation Moderate Complexity Neuromuscular Re-Ed Therapeutic Exercise Manual Therapy Advance Directives Directive Yes / No Effective Date File Name No Information Encounters Encounter Description Practice Location Reason(s) For Visit Diagnoses Date Provider Providers Copied on Encounter [address], [id number], tel:[phone] [place] No Information 3 Muehl Elian. [address] [facility], [facility] [address], [place], [facility], . tel: [phone] [address], [id number], tel:[phone] [place] No Information 3 Jone Rosado . Referring Provider: Timoteo Peters, [address] [place] [address], [facility]. tel:[phone], [id number], tel:[phone] [place] No Information 3 Muehl Elian. [address] [facility], [address], [facility], . tel: [phone] Referring Provider: Timoteo Peters, [address] [place] [address], [facility]. tel:[phone], [id number], tel:[phone] [place] No Information 2 Muehl Elian. [address] [facility], [facility] [address], [place], [facility], . tel: [phone] Referring Provider: Timoteo Peters, [address] [place] [address], [facility]. tel:[phone], [id number], tel:[phone] [place] No Information 2 Muehl Elian. [address] [place] [address], [address], [place], [address], [place]. tel: [phone] Referring Provider: Timoteo Peters, [address] [place] [address], [place], [address]. tel:[phone], [id number], [place] tel:[phone] [place] No Information Dec-2 2 Muehl Elian. [address] [place] [address], [address], [place], [address], [place]. tel: [phone] Referring Provider: Timoteo Peters, [address] [place] [address], [place], [address]. tel:[phone], [id number], [place] tel:[phone] [place] No Information Apr- 2 Muehl Elian. [address] [place] [address], [facility] [address], [address], [place]. tel: [phone] Referring Provider: Timoteo Peters, [address] [place] [address], [place], [address]. tel:[phone], [id number], [place] tel:[phone] [place] No Information Apr- 2 Muehl Elian. [address] [place] [address], [address], [address], [place]. tel: [phone] Referring Provider: Timoteo Peters, [address] [place] [address], [place], [address]. tel:[phone], [id number], [place] tel:[phone] [place] No Information Dec-1 2 Muehl Elian. [address] [place] [address], [address], [address], [place]. tel: [phone] Referring Provider: Timoteo Peters, [facility], [place], [address]. tel:[phone], [id number], tel:[phone] [place] No Information Dec-0 9-202 2 Muehl Elian. [address] [place] [address], [facility] [address], [place], [facility], . tel: [phone] Referring Provider: Timoteojyoti Concepcionker Lorraine, [address] [facility], [place], [address]. tel:[phone], [id number], tel:[phone] [place] No Information Dec-0 7-202 2 Muehl Elian. [address] [place] [address], [facility] [address], [place], [facility], [place]. tel: [phone] Referring Provider: Timoteo Concepcionker Lorraine, [address] [place] [address], [place], [address]. tel:[phone], [id number], tel:[phone] [place] No Information Dec-0 5-202 2 Muehl Elian. [address] [place] [address], [address], [facility], [place]. tel: [phone] Referring Provider: Timoteojyoti Concepcionker Lorraine, [facility], [place], [address]. tel:[phone], [id number], tel:[phone] [place] No Information Dec-0 2-202 2 Muehl Elian. [address] [facility], [address], [place], [place], [facility], . tel: [phone] Referring Provider: Timoteo Peters, [address] [place] [address], [place], [address]. tel:[phone] [place] [address], [id number], tel:[phone] [place] No Information Nov-3 0-202 2 Muehl Elian. [address] [place] [address], [address], [facility], . tel: [phone] Referring Provider: Timoteo Peters, [facility], [place], [address]. tel:[phone] [place] [address], [id number], [place] tel:[phone] [place] No Information Nov-2 8 2 Muehl Elian. [address] [place] [address], [address], [facility], . tel: [phone] Referring Provider: Timoteo Peters, [facility], [place], [address]. tel:[phone] [place] [address], [id number], [place] tel:[phone] [place] No Information Nov- 5 2 Muehl Elian. [address] [place] [address], [address], [place], [facility], [place]. tel: [phone] Referring Provider: Timoteo Peters, [address] [facility], [place], [address]. tel:[phone], [id number], [place] tel:[phone] [place] No Information Mar- 2 2 Muehl Elian. [address] [place] [address], [address], [place], [facility], . tel: [phone] Referring Provider: Timoteo Peters, [address] [facility], [place], [address]. tel:[phone], [id number], tel:[phone] [place] No Information 2 Short Almaz. . Referring Provider: Timoteo Peters, [address] [place] [address], [address]. tel:[phone], [id number], tel:[phone] [place] No Information 2 Muehl Elian. [address] [place] [address], [address], [facility], . tel: [phone] Referring Provider: Timoteo Peters, [address] [place] [address], [address]. tel:[phone] [place] [address], [id number], tel:[phone] [place] No Information 2 Muehl Elian. [address] [place] [address], [address], [facility], [place]. tel: [phone] Referring Provider: Timoteo Peters, [address] [place] [address], [address]. tel:[phone], [id number], tel:[phone] [place] No Information 2 Muehl Elian. [address] [place] [address], [address], [facility], . tel: [phone] Referring Provider: Timoteo Peters, [address] [place] [address], [address]. tel:[phone], [id number], tel:[phone] [place] No Information 2 Muehl Elian. [address] [place] [address] [facility] [address], [place], [facility], . tel: [phone] Referring Provider: Timoteo Peters, [address] [place] [address], [address]. tel:[phone], [id number], tel:[phone] [place] No Information Nov-0 7-202 2 Muehl Elian. [address] [place] [address], [facility] [address], [place], [facility], [place]. tel: [phone] Referring Provider: Timoteo Peters, [address] [place] [address], [place], [address]. tel:[phone], [id number], tel:[phone] [place] No Information Nov-0 -202 2 Muehl Elian. [address] [place] [address], [address], [facility], [place]. tel: [phone] Referring Provider: Timoteo Peters, [facility], [place], [address]. tel:[phone], [id number], tel:[phone] [place] No Information Nov-0 3-202 2 Muehl Elian. [address] [place] [address], [facility] [address], [place], [facility], [place]. tel: [phone] Referring Provider: Timoteo Peters, [address] [place] [address], [address]. tel:[phone], [id number], tel:[phone] [place] No Information Nov-0 1-202 2 Muehl Elian. [address] [place] [address], [address], [facility], . tel: [phone] Referring Provider: Timoteo Peters, [facility], [place], [address]. tel:[phone] [place] [address], [id number], tel:[phone] [place] No Information 8 2 Muehl Elian. [address] [place] [address], [address], [place], [facility], . tel: [phone] Referring Provider: Timoteo Peters, [address] [place] [address], [place], [address]. tel:[phone], [id number], tel:[phone] [place] No Information 6 2 Muehl Elian. [address] [place] [address], [address], [place], [facility], . tel: [phone] Referring Provider: Timoteo Peters, [address] [place] [address], [place], [address]. tel:[phone] [place] [address], [id number], tel:[phone] [place] No Information 2 Muehl Elian. [address] [place] [address], [address], [place], [facility], [place]. tel: [phone] Referring Provider: Timoteo Peters, [facility], [place], [address]. tel:[phone], [id number], tel:[phone] [place] No Information 1 2 Muehl Elian. [address] [place] [address], [address], [place], [facility], . tel: [phone] Referring Provider: Timoteo Peters, [address] [place], [place] [address], [place], [address]. tel:[phone], [id number], tel:[phone] [place] No Information 2 Thomas Plummer. [address] [facility], [place] [address], . tel:[phone] Referring Provider: Timoteo Peters, [address] [place] [address], [address]. tel:[phone], [id number], tel:[phone] [place] No Information 2 Thomas Plummer. [address] [facility], [address], [facility], . tel:[phone] Referring Provider: Timoteo Peters, [address] [place] [address], [address]. tel:[phone] Family History Family Member Type Diagnosis Age At Onset No Information Payers Payer name Insurance type Covered democrat ID Authorfaviola michaud(s) [employer] - [employer] [facility] [id number] Social History Type Description Quantity Date Captured Comments Sex Male Smoking Status No Information Chief Complaint And Reason For Visit No Information Reason For Referral Reason For Referral No Information History Of Present Illness Encounter Date Complaint History Of Prese nt Illness No Information Functional Status Date Functional Assessmen t No Information Instructions Date Instruction Additional Infor mation Prescribed activity/exercise edu cation Related to Overweight Dietary needs education Related to Overweight Assessments Type Assessment Date No Information Patient Care Teams Name Effective Dates (start - stop) Status Members No Information
--- OUTSIDE RECORDS SUMMARY | 2024-08-01 18:41 | XMS_ITS | Clinical Summary ---
Author Organization [facility] Address [address] [place] [address] Care Team Providers Care Tapering Machine Operator Name Role Phone Unavailable Primary Care Provider Unavailabl e Social History Tobacco Use Types Packs/Day Years Used Date Smoking Tobacco: Never Assessed Sex and Gender Information Value Date Recorded Sex Assigned at Not on file Legal Sex Male 4:10 PM CDT Gender Identity Not on file Sexual Orientation Not on file Plan of Treatment Health Maintenance Due Date Last Done Comments Colorectal Cancer Screening Colonoscopy (10 Years) 1950 Hepatitis C 11/12/1967 DTaP, Tdap and Td Vaccines ( 1 - Tdap) 1968 Zoster Vaccines (1 of 2) 11/12/1999 Annual Medicare Wellness Visit 2014 Pneumococcal Vaccine: 65+ Ye ars (1 of 1 - PCV) 2014 COVID-19 Vaccine ( - 2023-2 5 season) 2024 Influenza Adult (#1) 2024 RSV Immunization or 60+ Years (1 - 1-dose 75+ series) 2024 Meningococcal B Vaccine Aged Out No l onger eligible based on patient's age to complete this topic Meningococcal Vaccine Aged Out No joanne sakina eligible based on patient's age to complete this topic RSV Immunizations Under 20 Months Aged Out No longer eligible based on patient's age to complete this topic Insurance [employer]
--- OUTSIDE RECORDS SUMMARY | 2024-08-01 19:14 | XMS_ITS | Continuity of Care Document ---
Author Organization [employer] [place] Address [address] [facility] [address] [place] [address] Phone Care Team Providers Care Casting Room Operator Name Role Phone Elian Anne Unavailable Procedures Procedure Date Therapeutic Activities Neuromuscular Re-Ed Therapeutic Exercise CONTRACT LOADER Acute Therapeutic Activities Neuromuscular Re-Ed Therapeutic Exercise Progress Note Therapeutic Activities Neuromuscular Re-Ed Therapeutic Exercise Therapeutic Activities Neuromuscular Re-Ed Therapeutic Exercise Therapeutic Activities Neuromuscular Re-Ed Therapeutic Exercise Hot or Cold Pack Therapeutic Activities Neuromuscular Re-Ed Therapeutic Exercise Therapeutic Activities Neuromuscular Re-Ed Therapeutic Exercise Hot or Cold Pack Therapeutic Activities Neuromuscular Re-Ed Therapeutic Exercise Hot or Cold Pack Electrical Stimulation CONTRACT LOADER Acute Therapeutic Activities Neuromuscular Re-Ed Therapeutic Exercise Hot or Cold Pack Electrical Stimulation Therapeutic Activities Neuromuscular Re-Ed Therapeutic Exercise Manual Therapy Electrical Stimulation Hot or Cold Pack Therapeutic Activities Neuromuscular Re-Ed Therapeutic Exercise Hot or Cold Pack Therapeutic Activities Neuromuscular Re-Ed Therapeutic Exercise Manual Therapy Hot or Cold Pack Therapeutic Activities Neuromuscular Re-Ed Therapeutic Exercise Hot or Cold Pack CONTRACT LOADER Acute Therapeutic Activities Neuromuscular Re-Ed Therapeutic Exercise [...] Exercise Manual Therapy Therapeutic Activities Neuromuscular Re-Ed Manual Therapy Therapeutic Exercise Hot or Cold Pack CONTRACT LOADER Acute Therapeutic Activities Neuromuscular Re-Ed Therapeutic Exercise [...] Exercise Manual Therapy Hot or Cold Pack Doc neg elder mal no plan PT Evaluation Moderate Complexity Neuromuscular Re-Ed Therapeutic Exercise Manual Therapy Advance Directives Directive Yes / No Effective Date File Name No Information Encounters Encounter Description Practice Location Reason(s) For Visit Diagnoses Date Provider Providers Copied on Encounter [address], [id number], tel:[phone] [place] No Information 3 Muehl Elian. [address] [facility], [facility] [address], [place], [facility], . tel: [phone] [address], [id number], tel:[phone] [place] No Information 3 Jone Rosado . Referring Provider: Timoteo Peters, [address] [place] [address], [facility]. tel:[phone], [id number], tel:[phone] [place] No Information 3 Muehl Elian. [address] [facility], [address], [facility], . tel: [phone] Referring Provider: Timoteo Peters, [address] [place] [address], [facility]. tel:[phone], [id number], tel:[phone] [place] No Information 2 Muehl Elian. [address] [facility], [facility] [address], [place], [facility], . tel: [phone] Referring Provider: Timoteo Peters, [address] [place] [address], [facility]. tel:[phone], [id number], tel:[phone] [place] No Information 2 Muehl Elian. [address] [place] [address], [address], [place], [address], [place]. tel: [phone] Referring Provider: Timoteo Peters, [address] [place] [address], [place], [address]. tel:[phone], [id number], [place] tel:[phone] [place] No Information Dec-2 2 Muehl Elian. [address] [place] [address], [address], [place], [address], [place]. tel: [phone] Referring Provider: Timoteo Peters, [address] [place] [address], [place], [address]. tel:[phone], [id number], [place] tel:[phone] [place] No Information Apr- 2 Muehl Elian. [address] [place] [address], [facility] [address], [place], [address], [place]. tel: [phone] Referring Provider: Timoteo Peters, [address] [place] [address], [place], [address]. tel:[phone], [id number], [place] tel:[phone] [place] No Information Apr- 2 Muehl Elian. [address] [place] [address], [address], [place], [address], [place]. tel: [phone] Referring Provider: Timoteo Peters, [address] [place] [address], [place], [address]. tel:[phone], [id number], [place] tel:[phone] [place] No Information Dec-1 2 Muehl Elian. [address] [place] [address], [address], [place], [address], [place]. tel: [phone] Referring Provider: Timoteo Peters, [facility], [place], [address]. tel:[phone], [id number], tel:[phone] [place] No Information Dec-0 9-202 2 Muehl Elian. [address] [place] [address], [facility] [address], [place], [facility], . tel: [phone] Referring Provider: Timoteojyoti Concepcionker Lorraine, [address] [facility], [place], [address]. tel:[phone], [id number], tel:[phone] [place] No Information Dec-0 7-202 2 Muehl Elian. [address] [place] [address], [facility] [address], [place], [facility], [place]. tel: [phone] Referring Provider: Timoteo Concepcionker Lorraine, [address] [place] [address], [place], [address]. tel:[phone], [id number], tel:[phone] [place] No Information Dec-0 5-202 2 Muehl Elian. [address] [place] [address], [address], [place], [facility], [place]. tel: [phone] Referring Provider: Timoteojyoti Concepcionker Lorraine, [facility], [place], [address]. tel:[phone], [id number], tel:[phone] [place] No Information Dec-0 2-202 2 Muehl Elian. [address] [facility], [address], [place], [facility], . tel: [phone] Referring Provider: Timoteo Peters, [address] [place] [address], [place], [address]. tel:[phone] [place] [address], [id number], tel:[phone] [place] No Information Nov-3 0-202 2 Muehl Elian. [address] [place] [address], [address], [place], [facility], . tel: [phone] Referring Provider: Timoteo Peters, [facility], [place], [address]. tel:[phone] [place] [address], [id number], [place] tel:[phone] [place] No Information Nov-2 8 2 Muehl Elian. [address] [place] [address], [address], [place], [facility], . tel: [phone] Referring Provider: Timoteo Peters, [facility], [place], [address]. tel:[phone] [place] [address], [id number], [place] tel:[phone] [place] No Information Nov- 5 2 Muehl Elian. [address] [place] [address], [address], [place], [facility], [place]. tel: [phone] Referring Provider: Timoteo Peters, [address] [facility], [place], [address]. tel:[phone], [id number], [place] tel:[phone] [place] No Information Mar- 2 2 Muehl Elian. [address] [place] [address], [address], [place], [facility], . tel: [phone] Referring Provider: Timoteo Peters, [address] [facility], [place], [address]. tel:[phone], [id number], tel:[phone] [place] No Information 2 Short Almaz. . Referring Provider: Timoteo Peters, [address] [place] [address], [address]. tel:[phone], [id number], tel:[phone] [place] No Information 2 Muehl Elian. [address] [place] [address], [address], [facility], . tel: [phone] Referring Provider: Timoteo Peters, [address] [place] [address], [address]. tel:[phone] [place] [address], [id number], tel:[phone] [place] No Information 2 Muehl Elian. [address] [place] [address], [address], [facility], [place]. tel: [phone] Referring Provider: Timoteo Peters, [address] [place] [address], [address]. tel:[phone], [id number], tel:[phone] [place] No Information 2 Muehl Elian. [address] [place] [address], [address], [facility], . tel: [phone] Referring Provider: Timoteo Peters, [address] [place] [address], [address]. tel:[phone], [id number], tel:[phone] [place] No Information 2 Muehl Elian. [address] [place] [address] [facility] [address], [facility], . tel: [phone] Referring Provider: Timoteo Peters, [address] [place] [address], [address]. tel:[phone], [id number], tel:[phone] [place] No Information Nov-0 7-202 2 Muehl Elian. [address] [place] [address], [facility] [address], [place], [facility], [place]. tel: [phone] Referring Provider: Timoteo Peters, [address] [place] [address], [place], [address]. tel:[phone], [id number], tel:[phone] [place] No Information Nov-0 -202 2 Muehl Elian. [address] [place] [address], [address], [facility], [place]. tel: [phone] Referring Provider: Timoteo Peters, [facility], [place], [address]. tel:[phone], [id number], tel:[phone] [place] No Information Nov-0 3-202 2 Muehl Elian. [address] [place] [address], [facility] [address], [facility], [place]. tel: [phone] Referring Provider: Timoteo Peters, [address] [place] [address], [address]. tel:[phone], [id number], tel:[phone] [place] No Information Nov-0 1-202 2 Muehl Elian. [address] [place] [address], [address], [place], [facility], . tel: [phone] Referring Provider: Timoteo Peters, [facility], [place], [address]. tel:[phone] [place] [address], [id number], tel:[phone] [place] No Information 8 2 Muehl Elian. [address] [place] [address], [address], [place], [facility], . tel: [phone] Referring Provider: Timoteo Peters, [address] [place] [address], [place], [address]. tel:[phone], [id number], tel:[phone] [place] No Information 6 2 Muehl Elian. [address] [place] [address], [address], [place], [facility], . tel: [phone] Referring Provider: Timoteo Peters, [address] [place] [address], [place], [address]. tel:[phone] [place] [address], [id number], tel:[phone] [place] No Information 2 Muehl Elian. [address] [place] [address], [address], [place], [facility], [place]. tel: [phone] Referring Provider: Timoteo Peters, [facility], [place], [address]. tel:[phone], [id number], tel:[phone] [place] No Information 1 2 Muehl Elian. [address] [place] [address], [address], [place], [facility], . tel: [phone] Referring Provider: Timoteo Peters, [address] [place], [place] [address], [address]. tel:[phone], [id number], tel:[phone] [place] No Information 2 Thomas Plummer. [address] [facility], [place] [address], . tel:[phone] Referring Provider: Timoteo Peters, [address] [place] [address], [address]. tel:[phone], [id number], tel:[phone] [place] No Information 2 Thomas Plummer. [address] [facility], [address], [facility], . tel:[phone] Referring Provider: Timoteo Peters, [address] [place] [address], [address]. tel:[phone] Family History Family Member Type Diagnosis Age At Onset No Information Payers Payer name Insurance type Covered alliance party ID Authorfaviola michaud(s) [employer] - [employer] [facility] [id number] Social History Type Description Quantity Date Captured [...]
--- OUTSIDE RECORDS SUMMARY | 2024-08-01 19:14 | XMS_ITS | Clinical Summary ---
Author Organization [facility] Address [address] [place] [address] Care Team Providers Care Screen Maker Name Role Phone Unavailable Primary Care Provider [...] patient's age to complete this topic Insurance [facility]
--- OUTSIDE RECORDS SUMMARY | 2024-08-01 19:14 | XMS_ITS | Encounter Summary ---
Author Organization [facility] Healthcare Address [address] [place] [address] Care Team Providers Care Broiler Chef Or Cook Name Role Phone Solitario Vaughn MD Unavailable [phone] Timoteo Sharpe MD Primary Care Provider Maria Del Rosario Murcia RD Unavailable Evens Geronimo MD Unavailable Encounter Details Date Type Department Care Team (Late st Contact Info) Description 08/01/2024 Telephone [facility] Medical Group Cardiology [address] [place] [address] Alec Sanchez MD [address] [facility] [address] [place] [address] Social History Tobacco Use Types Packs/Day Years Used Date Smoking Tobacco: Former Cigarettes 1 35 0 05/25/1965 - 05/25/2000 Passive Smoke Exposure: Past Smokeless Tobacco: Never Social Connection and Isolation Panel [NHANES] A nswer Date Recorded Frequency of Communication with Friends and Fami ly Not on file 03/06/2021 Frequency of Social Gatherings with Friends and Family Not on file 03/06/2021 Attends Christian Services Not on file 03/06 Active Member [...] on file Legal 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 States pt is diabetic and usually takes his insulin in the evening. Spouse wants to know if it is okay for pt to take his insulin this evening. Please advise, thank you. Contact: documented in this encounter Plan of Treatment Upcoming Encounters Date Type Department Care Team (Latest Contact Info) Description 08/02/2024 11:00 AM CDT Hospital Encounter [facility] Cardiac Catheterization Lab [address] [place] [address] Ubaldo Cantu MD [address] [id number] Chest pain, unspecified type 08/02/2024 11:00 AM CDT - 08/02/2024 12:30 PM CDT Surgery [facility] Cardiac Catheterization Lab [address] [place] [address] Ubaldo Cantu MD [address] [address] LEFT HEART CATHETERIZATION WITH CORONARY ANGIOGRAPHY AND WITH OR WITHOUT LEFT VENTRICULOGRAM [id number] 08/09/2024 10:00 AM CDT Hospital Encounter [facility] Operating Room [address] [place] [address] [place] [address] [address] 08/09/2024 10:00 AM CDT - 08/09/2024 10:30 AM CDT Surgery [facility] Operating Room [address] [place] [address] [place] [address] [facility] [address] [place], [place] [id number] DRUG INDUCED SLEEP ENDOSCOPY Scheduled Procedures Name Priority Associated Diagnoses Date/Ti me DRUG INDUCED SLEEP ENDOSCOPY EVAL FLEX DIAG NUVIA (obstructive sleep apnea) 08/09/2024 10:00 AM CDT documented as of this encounter Visit Diagnoses Not on filedocumented in this encounter Care Teams Broiler Chef Or Cook Relationship Specialty Start Date End Date Timoteo Sharpe MD PCP - General Family Medicine 03/08/21 DerrySolitario MD Consulting Physician Urology 01/23/21 [address] [facility] [place] [place] [address] Dietitian 03/03/23 Evens Geronimo MD [address] [facility] 6A/6B[address]12A [place] [address] Referring Physician Orthopedic Surgery 03/24/24 [facility] [place], [id number] Physical Therapist Physical Therapy 04/04/22 documented as of this encounter
--- OUTSIDE RECORDS SUMMARY | 2024-08-01 19:14 | XMS_ITS | Clinical Summary ---
Author Organization [facility] Facility Address [address] [place] [address] Care Team Providers Care School Bus Driver/Custodian Name Role Phone Timoteo Sharpe MD Primary Care Provider [phone] Medications calcitriol (ROCALTROL) 0.25 MCG capsule Take [...] Department Care Team Description 07/22/2024 Office Communication [facility], [address] [phone] Gallo aRscon DO 07/22/2024 Refill [facility], [address] [place] [address] Gallo Rascon DO 06/16/2024 Orders Only [facility], [address] [place] [id number] Gallo Rascon DO from Last 3 Months [...] Description 09/13/2024 2:00 PM CDT Office Visit [facility], [facility] [address] [facility] 15 [place] [phone] Gallo Rascon DO [address] [facility] 1 [place] [address] Health Maintenance Due Date Last [...] Comments HEMOGLOBIN A1C Routine 06/16/2024 9:09 AM TERRAZZO TILE MAKER PROTEIN / CREATININE RATIO, URINE Routine 06/16/2024 9:09 AM TERRAZZO TILE MAKER VITAMIN D 25 HYDROXY Routine 06/16/2024 9:09 AM TERRAZZO TILE MAKER PTH, INTACT Routine 06/16/2024 9:09 AM TERRAZZO TILE MAKER CBC Routine 06/16/2024 9:09 AM TERRAZZO TILE MAKER URINE ALBUMIN / CREATININE RATIO Routine 06/16/2024 9:09 AM TERRAZZO TILE MAKER COMPREHENSIVE METABOLIC PANEL Routine 06/16/2024 9:09 AM TERRAZZO TILE MAKER MAGNESIUM Routine 06/16/2024 9:09 AM TERRAZZO TILE MAKER from Last 3 Months Results * (ABNORMAL) Protein, Total, Random Urine w/Creatinine (Protein/Creat Ratio) (06/16/2024 9:09 AM TERRAZZO TILE MAKER) Creatinine, Ur 81 20 - 320 mg/dL See order comments Urine Protein/Creati nine Ratio 235(H) 25 - 148 mg/g creat See order comments Protein/Creati nine Ratio, Urine 0.235(H) 0.025 - 0.148 mg/mg creat See order comments Protein Urine Random 19 5 - 25 mg/dL See order comments 06/16/2024 9:0 9 AM TERRAZZO TILE MAKER 06/16/2024 9:11 AM TERRAZZO TILE MAKER Narrative Resulting Agency Comment Performing Organization Information: Site ID: [place] Name: [facility] Address: [address] [address] Director: Vladimir Rodriguez MD us Gallo Rascon DO LAB URINE ORDERABLES Final R esult [facility] See order comments [place] [address] * Urine Albumin / Creatinine Ratio (06/16/2024 9:09 AM TERRAZZO TILE MAKER) Creatinine, Ur 81 20 - 320 mg/dL [...] within a diagnostic category. 06/16/2024 9:09 AM TERRAZZO TILE MAKER 06/16/2024 9:11 AM TERRAZZO TILE MAKER Narrative Resulting Agency Comment Performing Organization Information: Site ID: [id number] Name: [facility] Address: [address] [address] Director: Vladimir Rodriguez MD us Gallo Rascon DO LAB URINE ORDERABLES Final R esult [facility] See order comments [place] [address] * Vitamin D 25 Hydroxy (06/16/2024 9:09 AM TERRAZZO TILE MAKER) Vitamin D, 25-OH, Total, IA 61 30 - 100 ng/mL See order comments Comment: Vitamin D Status 25-OH Vitamin D: Deficiency: <20 ng/mL Insufficiency: 20 - 29 ng/mL Optimal: > or = 30 ng/mL For 25-OH Vitamin D testing on patients on D2-supplementation and patients for whom quantitation of D2 and D3 fractions is required, the [facility]() 25-OH VIT D, (D2,D3), LC/MS/MS is recommended: order code 91120 (patients >2yrs). See Note 1 Note 1 For additional information, please refer to http://education.FlightOffice/faq/ADF666 (This link is being provided for informational/ educational purposes only.) 06/16/2024 9:09 AM TERRAZZO TILE MAKER 06/16/2024 9:11 AM TERRAZZO TILE MAKER Narrative Resulting Agency Comment Performing Organization Information: Site ID: [place] Name: [employer] Address: [address] [address] Director: Vladimir Rodriguez MD us Gallo Rascon DO LAB BLOOD ORDERABLES Final R esult [facility] See order comments [place] [address] * (ABNORMAL) CBC (06/16/2024 9:09 AM TERRAZZO TILE MAKER) WBC 4.3 3.8 - 10.8 Thousand/u L [...] fL See order comments 06/16/2024 9:09 AM TERRAZZO TILE MAKER 06/16/2024 9:11 AM TERRAZZO TILE MAKER Narrative Resulting Agency Comment Performing Organization Information: Site ID: [place] Name: [facility] Address: [address] [address] Director: Vladimir Rodriguez us Gallo Rascon DO LAB BLOOD ORDERABLES Final R esult [facility] See order comments [place] [address] * (ABNORMAL) PTH, Intact (06/16/2024 9:09 AM TERRAZZO TILE MAKER) Parathyroid Hormone, Intact 216(H) 16 - 77 pg/mL See order comments Comment: Interpretive Guide Intact PTH Calcium ------- Normal Parathyroid Normal Normal Hypoparathyroidism Low or Low Normal Low Hyperparathyroidism Primary Normal or High High Secondary High Normal or Low Tertiary High High Non-Parathyroid Hypercalcemia Low or Low Normal High 06/16/2024 9:09 AM TERRAZZO TILE MAKER 06/16/2024 9:11 AM TERRAZZO TILE MAKER Narrative Resulting Agency Comment Performing Organization Information: Site ID: [place] [facility]: [facility] Address: [address] [address] Director: Vladimir Rodriguez MD Gallo Rascon DO LAB BLOOD ORDERABLES Final R esult Performing Organization Address [facility] Co de Phone Number [facility] See order comments [place] [address] * Magnesium (06/16/2024 9:09 AM TERRAZZO TILE MAKER) Magnesium 2.0 1.5 - 2.5 mg/dL See order comments 06/16/2024 9:09 AM TERRAZZO TILE MAKER 06/16/2024 9:11 AM TERRAZZO TILE MAKER Narrative Resulting Agency Comment Performing Organization Information: Site ID: [place] Name: [facility] Address: [address] [facility] [place] [address] Director: Vladimir Rodriguez Gallo Rascon DO LAB BLOOD ORDERABLES Final R esult Performing Organization Address City/[facility]/ZIP Co de Phone Number [facility] [address] See order comments [place] [address] * (ABNORMAL) Hemoglobin A1c (06/16/2024 9:09 AM TERRAZZO TILE MAKER) Hemoglobin A1C 6.4(H) <5.7 % of total [...] of diabetes for children. 06/16/2024 9:09 AM TERRAZZO TILE MAKER 06/16/2024 9:11 AM TERRAZZO TILE MAKER Narrative Resulting Agency Comment Performing Organization Information: Site ID: Name: [facility] Address: [address] [place] [address] Director: Vladimir Rodriguez Gallo Rascon DO LAB BLOOD ORDERABLES Final R esult [facility] See order comments [place] [address] * (ABNORMAL) Comprehensive Metabolic Panel (06/16/2024 9:09 AM TERRAZZO TILE MAKER) Glucose 191(H) 65 - 99 mg/dL See [...] See orde r comments 06/16/2024 9:09 AM TERRAZZO TILE MAKER 06/16/2024 9:11 AM TERRAZZO TILE MAKER Narrative Resulting Agency Comment Performing Organization Information: Site ID: Name: [facility] Address: [address] [place] [address] Director: Vladimir Rodriguez us Gallo Rascon DO LAB BLOOD ORDERABLES Final R esult [facility] See order comments [place] [address] from Last 3 Months Insurance [address] [place] [id number] [employer] MCR ADV HMO ([id number]) Advance Directives Documents on File Type Date Recorded 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
--- OUTSIDE RECORDS SUMMARY | 2024-08-01 19:14 | XMS_ITS | Clinical Summary ---
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 Take 1 [...] 03/25 Assessment & Plan (04/08/2023 10:59 AM CHIEF SECURITY OFFICER): A(n) yearly Medicare Annual Wellness Visit has [...] 04/05/2022 Assessment & Plan (04/05/2022 1:22 PM CHIEF SECURITY OFFICER): Dizziness was likely vasovagal, but we will [...] artery disease of n ative artery of standing rock heart with stable angina pectoris 01/21/2022 Hyperlipidemia [...] get Thursday on the day of the internal controls manager appointment) Continuing current regimen, though BP is mildly elevated Assessment & Plan (06/15/2022 12:55 PM CHIEF SECURITY OFFICER): The a1c is improving nicely, now at [...] reduction. Assessment & Plan (06/23/2023 12:43 PM CHIEF SECURITY OFFICER): A1c down slightly, still above 8% Will [...] provided. Assessment & Plan (04/08/2023 10:59 AM CHIEF SECURITY OFFICER): BMI Follow-up includes: nutrition counseling, exercise counseling, and education provided. Assessment & Plan (06/15/2022 12:15 PM CHIEF SECURITY OFFICER): BMI Follow-up includes: nutrition counseling, exercise counseling [...] 07/12/2021 Assessment & Plan (07/12/2021 10:21 AM CHIEF SECURITY OFFICER): Likely was reflux-related rather than cardiac based on work up, however small abnormality was seen on lexiscan. Seeing internal controls manager on Thursday I will want to get the full records from [facility] For now, continue the regimen after hospital [...] Type Department Care Team Description 08/01/2024 Telephone [facility] Cardiology [address] [facility] [address] [place] [phone] Alec Sanchez MD 07/21/2024 Telephone [facility] Primary Care at [address] [phone] Timoteo Sharpe MD 07/20/2024 Telephone [facility] Medical [facility] Cardiology [address] [facility] [address] [place] [phone] Alec Sanchez MD 07/05/2024 11:00 AM CHIEF SECURITY OFFICER - 07/05/2024 11:59 PM CHIEF SECURITY OFFICER Hospital Encounter [facility] Nutrition and Diabetic Education [address] [place] [address] [address] [place] [address] Murcia, Maria Del Rosario Chow RD Discharge Disposition: Discharge to home or self care 07/01/2024 Telephone [facility] Primary Care at [address] [phone] Joann Walton MA 06/08/2024 2:00 PM CHIEF SECURITY OFFICER Office Visit [facility] Primary Care at [address] [phone] Timoteo Sharpe MD Hypertension associated with diabetes (HCC) (Primary Dx); Hyperlipidemia associated with type 2 diabetes mellitus (HCC); 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; Recurrent major depressive disorder, in full remission; Diabetic polyneuropathy associated with type 2 diabetes mellitus (HCC) 06/07/2024 1:30 PM CHIEF SECURITY OFFICER Office Visit [facility] Cardiology at [address] [place] [phone] Alec Sanchez MD Hypertension associated with diabetes (HCC) (Primary Dx); Hyperlipidemia associated with type 2 diabetes mellitus (HCC); 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; Stage 3b chronic kidney disease (HCC); Aneurysm of right common iliac artery 06/01/2024 10:11 AM CHIEF SECURITY OFFICER - 06/01/2024 11:59 PM CHIEF SECURITY OFFICER Hospital Encounter [address] [address] Benign prostatic hyperplasia with urinary obstruction; Obesity, diabetes, and hypertension syndrome (HCC); Stage 3b chronic kidney disease (HCC); Hyperlipidemia associated with type 2 diabetes mellitus (HCC) Discharge Disposition: Discharge to home or self care 06/01/2024 10:00 AM CHIEF SECURITY OFFICER Lab [facility] Outpatient Lab at [address] [phone] Hypertension associated with diabetes (HCC) (Primary Dx) 06/01/2024 Telephone [facility] Primary Care at [address] [phone] Timoteo Sharpe MD Additional Services Or Orders 05/26/2024 1:40 PM CHIEF SECURITY OFFICER Office Visit [facility]) - [address] Medical Office Building [address] [place] [address] Isha Yang MD Obstructive sleep apnea (Primary Dx); BMI 40.0-44.9, adult (HCC) 05/19/2024 Telephone [facility] Primary Care at [address] [phone] Timoteo Sharpe MD Medication Request 05/19/2024 Nurse Triage [facility] Primary Care at [address] [phone] Timoteo Sharpe MD 05/13/2024 11:45 AM CHIEF SECURITY OFFICER Office Visit [facility] Sleep Medicine at [address] [place] [phone] Tatiana Mejia MD Obstructive sleep apnea (Primary Dx); Hypersomnia; Obesity, unspecified class, unspecified obesity type, unspecified whether serious comorbidity present 05/13/2024 10:30 AM CHIEF SECURITY OFFICER - 05/13/2024 11:59 PM CHIEF SECURITY OFFICER Hospital Encounter [facility] Nutrition and Diabetic Education 1 [facility] Room [address] [place] [address] Twin, Maria Del Rosario Chow RD Discharge [...] Father Esau Joseph Sr Heart disease Mother Marialuisa Joseph Diabetes Other sibling Relation Name Status [...] and Family Not on file 03/06/2021 Attends Scientologist Services Not on file 03/06 Active Member [...] on file Legal Sex Male 7:26 PM CHIEF SECURITY OFFICER Gender Identity Not on file Sexual Orientation Not on file 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 file Not on file Not on file Obstetrics History Last Filed Vital Signs Vital Sign Reading Time Taken Comments Blood Pressure 108/72 06/08/2024 2:00 PM CHIEF SECURITY OFFICER Pulse 67 06/08/2024 2:00 PM CHIEF SECURITY OFFICER Temperature 36.7 C (98 F) 06/08/2024 2:00 PM CHIEF SECURITY OFFICER Respiratory Rate 20 06/08/2024 2:00 PM CHIEF SECURITY OFFICER Oxygen Saturation 96% 06/08/2024 2:00 PM CHIEF SECURITY OFFICER Inhaled Oxygen Concentration - - Weight 127.5 kg (281 lb) 06/08/2024 2:00 PM CHIEF SECURITY OFFICER Height 175.3 cm (5' 9 ) 07/05/2024 2:15 PM CHIEF SECURITY OFFICER Body Mass Index 41.5 06/08/2024 2:00 PM CHIEF SECURITY OFFICER Plan of Treatment Upcoming Encounters Date Type Department Care Team (Latest Contact Info) Description 08/02/2024 11:00 AM CDT Hospital Encounter [facility] Cardiac Catheterization Lab [address] [place] [address] Ubaldo Cantu MD [address] [address] Chest pain, unspecified type 08/02/2024 11:00 AM CDT - 08/02/2024 12:30 PM CDT Surgery [facility] Cardiac Catheterization Lab [address] [place] [address] Ubaldo Cantu MD [address] [address] LEFT HEART CATHETERIZATION WITH CORONARY ANGIOGRAPHY AND WITH OR WITHOUT LEFT VENTRICULOGRAM [id number] 08/09/2024 10:00 AM CDT Hospital Encounter [facility] Operating Room [address] [place] [address] [place] [address] [address] 08/09/2024 10:00 AM CDT - 08/09/2024 10:30 AM CDT Surgery [facility] Operating Room [address] [place] [address] [place] [address] [facility] [address] [place], [place] [id number] DRUG INDUCED SLEEP ENDOSCOPY Scheduled Procedures Name [...] history exists Medical Devices Implanted Type Area Flight Information Expediter Device Identifier Shelf Expiration Date Model / Serial / Lot [facility] 3.5 X 15mm Torrey [employer] Rx Coronary Stent [id number] - [id number] Implanted:Qty: 1 on 07/29/2022 by Ubaldo Cantu MD at [facility] Vasc Surgery 10/11/2023 [id number] / / [id number] [employer] Angio-Seal Vip 6fr Closere Device [id number] - [id number] Implanted:Qty: 1 on 07/29/2022 by Ubaldo Cantu MD at [facility] [employer] 02/21/2023 [id number] / / [id number] Procedures Procedure Name Priority Date/Time Associated Diagnosis Comments EGFR Routine 06/01/2024 10:11 AM CHIEF SECURITY OFFICER Stage 3b chronic kidney disease (HCC) DIFFERENTIAL AUTO Routine 06/01/2024 10: 11 AM CHIEF SECURITY OFFICER Obesity, diabetes, and hypertension syndrome (HCC) Hyperlipidemia associated with type 2 diabetes mellitus (HCC) COMPREHENSIVE METABOLIC PANEL Routine 06/01/2024 10:11 AM CHIEF SECURITY OFFICER Stage 3b chronic kidney disease (HCC) CBC WITH AUTO DIFFERENTIAL Routine 06/01/2024 10:11 AM CHIEF SECURITY OFFICER Obesity, diabetes, and hypertension syndrome (HCC) Hyperlipidemia associated with type 2 diabetes mellitus (HCC) LIPID PANEL Routine 06/01/2024 10:11 AM CHIEF SECURITY OFFICER Hyperlipidemia associated with type 2 diabetes mellitus (HCC) HEMOGLOBIN A1C Routine 06/01/2024 10:11 AM CHIEF SECURITY OFFICER Obesity, diabetes, and hypertension syndrome (HCC) Hyperlipidemia associated with type 2 diabetes mellitus (HCC) ALBUMIN CREATININE RATIO, URINE Routine 06/01/2024 10:11 AM CHIEF SECURITY OFFICER Obesity, diabetes, and hypertension syndrome (HCC) Stage 3b chronic kidney disease (HCC) PSA SCREEN Routine 06/01/2024 10:11 AM CHIEF SECURITY OFFICER Benign prostatic hyperplasia with urinary obstruction STOOL DNA COLOGUARD Routine 04/18/2023 4:15 PM CHIEF SECURITY OFFICER Colon cancer screening DIABETES EYE EXAM Routine [...] Results * (ABNORMAL) eGFR (06/01/2024 10:11 AM CHIEF SECURITY OFFICER) eGFR 40(L) >=60 mL/min/1. 73 m2 Comment: [...] reviewed 2021. Blood 06/01/2024 10:1 1 AM CHIEF SECURITY OFFICER 06/01/2024 5:56 PM CHIEF SECURITY OFFICER us Timoteo Sharpe MD LAB BLOOD ORDERABLES Final Result [facility] [address] Department [place] [address] * Differential, auto (06/01/2024 10:11 AM CHIEF SECURITY OFFICER) Neutrophil abs 3.8 1.5 - 6.5 K/cumm Imm gran abs 0.0 0.0 - 0.1 K/cumm [facility] Lymphocyte abs 1.1 0.8 - 3.3 K/cumm [facility] Monocyte abs 0.5 0.2 - 0.8 K/cumm [facility] Eosinophil abs 0.2 0.0 - 0.5 K/cumm [facility] Basophil abs 0.0 0.0 - 0.1 K/cumm [facility] Neutrophil pct 68.2 % [facility] Comment: Interpretive Data Percent cell count reference ranges are not reported, since discordance with absolute values may lead to misinterpretation of CBC data. Current Interpretive Data was last revised on 2017. Imm gran pct 0.4 % [facility] Comment: Interpretive Data Percent cell count reference ranges are not reported, since discordance with absolute values may lead to misinterpretation of CBC data. Current Interpretive Data was last revised on 2017. Lymphocyte pct 18.7 % [facility] Comment: Interpretive Data Percent cell count reference ranges are not reported, since discordance with absolute values may lead to misinterpretation of CBC data. Current Interpretive Data was last revised on 2017. Monocyte pct 8.3 % [facility] Comment: Interpretive Data Percent cell count reference ranges are not reported, since discordance with absolute values may lead to misinterpretation of CBC data. Current Interpretive Data was last revised on 2017. Eosinophil pct 3.9 % [facility] Comment: Interpretive Data Percent cell [...] on 2017. Blood 06/01/2024 10:1 1 AM CHIEF SECURITY OFFICER 06/01/2024 5:56 PM CHIEF SECURITY OFFICER Timoteo Sharpe MD LAB BLOOD ORDERABLES Final Result Performing Organization Address City/[facility] Co de Phone Number [facility] [address] [email or web address] [address] * PSA screen (06/01/2024 10:11 AM CHIEF SECURITY OFFICER) PSA-Total 1.50 <=6.20 ng/mL Comment: Interpretive Data [...] revised 21. Blood 06/01/2024 10:1 1 AM CHIEF SECURITY OFFICER 06/01/2024 5:56 PM CHIEF SECURITY OFFICER Timoteo Sharpe MD LAB BLOOD ORDERABLES Final Result Performing Organization Address City/[facility] Co de Phone Number BAN [address] [email or web address] [address] * (ABNORMAL) CBC with auto differential (06/01/2024 10:11 AM CHIEF SECURITY OFFICER) WBC 5.6 3.8 - 9.9 K/cumm Hgb 12.5(L) 13.0 - 17.5 g/dL [facility] Hct 40.8 38.9 - 50.3 % [facility] Plt 231 150 - 400 K/cumm [facility] MPV 9.7 9.1 - 12.3 fL [facility] RBC 4.49 4.30 - 5.80 M/cumm [facility] MCV 90.9 81.3 - 96.4 fL [facility] MCH 27.8 27.1 - 33.3 pg [facility] MCHC 30.6(L) 32.3 - 35.7 g/dL [facility] RDW CV 14.0 11.1 - 14.9 % [facility] RDW SD 46.5 35.7 - 48.1 fL [facility] NRBC abs 0.00 0.00 - 0.01 K/cumm [facility] Blood 06/01/2024 10:1 1 AM CHIEF SECURITY OFFICER 06/01/2024 5:56 PM CHIEF SECURITY OFFICER Timoteo Sharpe MD LAB BLOOD ORDERABLES Final Result Performing Organization Address [facility] Phone Number [facility] [address] [address] [place] [address] * Albumin Creatinine Ratio, Urine (06/01/2024 10:11 AM CHIEF SECURITY OFFICER) Pathologist [facility] Albumin Ur 18.8 mg/L Comment: Interpretive Data No reference range established. Current interpretive data was last revised 2018. Creatinine Ur 204.0 mg/dL [facility] Comment: Interpretive Data No reference range established. Current interpretive data was last revised 2018. Albumin Creatinine Ratio, Ur 9 1 - 29 mg/g [facility] Urine 06/01/2024 10:1 1 AM CHIEF SECURITY OFFICER 06/01/2024 5:56 PM CHIEF SECURITY OFFICER Timoteo Sharpe MD LAB URINE ORDERABLES Final Result Performing Organization Address [facility] de Phone Number [facility] [address] Department [place] [employer] [place] [place] [address] * (ABNORMAL) Hemoglobin A1c (06/01/2024 10:11 AM CHIEF SECURITY OFFICER) Pathologist [facility] Hgb A1C 6.4(H) 4.0 - 5.6 % Estimated Average Glucose 137 mg/dL [facility] Comment: The ADA recommends reporting an estimated Average Glucose (eAG) with all Hemoglobin A1c results using the equation derived from a study of 507 normal and diabetic adults. Minority populations were underrepresented and children were not included. (Diabetes Care 31:2499-5888, 2008). The eAG is not equivalent to a fasting glucose. Blood 06/01/2024 10:1 1 AM CHIEF SECURITY OFFICER 06/01/2024 5:56 PM CHIEF SECURITY OFFICER us Timoteo Sharpe MD LAB BLOOD ORDERABLES Final Result [facility] [address] Department [place] [address] * Lipid panel (06/01/2024 10:11 AM CHIEF SECURITY OFFICER) Cholesterol 140 30 - 199 mg/dL Comment: [...] [facility] Blood 06/01/2024 10:1 1 AM CHIEF SECURITY OFFICER 06/01/2024 5:56 PM CHIEF SECURITY OFFICER us Timoteo Sharpe MD LAB [place] [address] [address] Department [place] [address] * (ABNORMAL) Comprehensive metabolic panel (06/01/2024 10:11 AM CHIEF SECURITY OFFICER) Sodium 143 135 - 145 mmol/L Potassium, [...] [facility] CH Blood 06/01/2024 10:1 1 AM CHIEF SECURITY OFFICER 06/01/2024 5:56 PM CHIEF SECURITY OFFICER Timoteo Sharpe MD LAB BLOOD ORDERABLES Final Result Performing Organization Address City/[place] Number [place] [address] [address] Department [place] [address] * Stool DNA - Cologuard (04/18/2023 4:15 PM CHIEF SECURITY OFFICER) Pathologist [facility] Stool DNA - Cologuard Negative Negative [employer] (CLIA #:[id number]) Comment: NEGATIVE TEST RESULT. A negative Cologuard [...] T. et al, N Engl J Med 2014;370(14):5439-0275) The normal value (reference range) for this assay is negative. COLOGUARD RE-SCREENING RECOMMENDATION: Periodic colorectal cancer screening is an important part of preventive healthcare for asymptomatic individuals at average risk for colorectal cancer. Following a negative Cologuard result, the [place] Cancer Society and U.S. Multi-Society Task Force screening guidelines recommend a Cologuard re-screening interval of 3 years. References: [place] Cancer Society Guideline for Colorectal Cancer Screening: https://www.cancer.org/cancer/rndwq-nqfjya-nptpds/yffyvgazm-hgoazkfre-xqxpayf/ac s-rec ommendations.html.; Rambo CAGLE, Sam SANTOS, Anaid BAIG, Colorectal Cancer Screening: Recommendations for Physicians and Patients from the U.S. Multi-Society Task Force on Colorectal Cancer Screening , Am J Gastroenterology 2017; 112:6162-0682. TEST DESCRIPTION: Composite algorithmic analysis of stool [...] Coughlin et al, N Engl J Med 2014;370(14):9095-2257.) Cologuard may produce a false negative or false positive result (no colorectal cancer or precancerous polyp present at colonoscopy follow up). A negative Cologuard test result does not guarantee the absence of CRC or advanced adenoma (pre-cancer). The current Cologuard screening interval is every 3 years. ([place] Cancer Society and U.S. Multi-Society Task Force). Cologuard performance data in a 10,000 patient pivotal study using colonoscopy as the reference method can be accessed at the following location: www.[employer].TopiVert/results. Additional description of the Cologuard test process, warnings and precautions can be found at www.[employer]mont[employer].com. Stool 04/18/2023 4:15 PM CHIEF SECURITY OFFICER 04/21/2023 11:30 AM CHIEF SECURITY OFFICER us Timoteo Sharpe MD LAB BODY FLUIDS AND STOOLS ORDERABLES Final Result [employer] (CLIA #:[id number]) [address] [address] * DIABETES EYE EXAM (02/27/2023) us Historical Provider [facility] Edited Result - Final * US Abdominal [...] 03/19/2021 7:51 AM - Electronically signed by Kdoak Montes M.D. JR: Report ID: [id number] Reading Location: [id number] Procedure Note Kodak Montes MD - 03/19/2021 [...] by Kodak Montes M.D. JR: Report ID: [id number] Reading Location: [place] [address] Timoteo Sharpe MD IMG US PROCEDURES Final [...] GENERAL ORDERABLES Final Result Performing Organization Address City/State/[facility] Co de Phone Number BAN [address] [address] Department [place] [address] from Last 3 Months or Most Recently Relevant to Health Maintenance Insurance [address] [place] [address] [employer] MEDICARE GOLD [employer] CHOICE MEDICARE PPO WORKERS COMPENSATION GENERIC MATHEWSADARSH NEWELL Advance Directives For more information, please contact: [phone] * Full Code (Latest Code Status on File) Date Activated Date Inactivated Comments 07/29/2022 12:26 PM 07/29/2022 8:20 PM * Full Code Date Activated Date Inactivated Comments 01/25/2021 7:09 PM 01/29/2021 6:54 PM * Full Code Date Activated Date Inactivated Comments 01/24/2021 3:16 PM 01/25/2021 1:31 PM * Full Code Date Activated Date Inactivated Comments 01/22/2021 9:10 PM 01/23/2021 9:30 PM Care Teams Dyer Assistant Relationship Specialty Start Date End Date Timoteo Sharpe MD PCP - General Family Medicine 03/08/21 Solitario Vaughn MD Consulting Physician Urology 01/23/21 Maria Del Rosario Murcia RD [address] [place] [address] [place] [address] Dietitian 03/03/23 Evens Geronimo MD [address] [facility] [place] [address] Referring Physician Orthopedic Surgery 03/24/24 [facility] [address] [place] [address], [phone] Physical Therapist Physical Therapy 04/04/22
--- OUTSIDE RECORDS SUMMARY | 2024-08-01 19:14 | XMS_ITS | Continuity of Care Document ---
Author Organization [facility] Address [address] [place] [address] [address] [place] [address] Phone Care Team Providers Care Molding Line Assistant Name Role Phone Valerio Gallo MD Unavailable [...] Provider Providers Copied on Encounter [facility], [address] [place] [address], [id number], tel:[phone] [facility] No Information 9 Sabino Luo. [address] [place] [address], [facility] [address], [place], [address], [place]. tel:[phone] Referring Provider: Valerio Leonard, [address] [place] [address] [address], [place], [address]. tel:[phone] [facility], [address] [place] [address], [id number], tel:[phone] OPH CONSULT [facility] No Information 9 Sabino Luo. [address] [place] [address], [facility] [address], [place], [address], [place]. tel:[phone] [facility], [address] [facility] [address], [place], [place], [id number], [place] tel:[phone] [facility] No Information 9 Sabino Luo. [address] [facility], [address], [place], [address], [place]. tel:[phone] Referring Provider: Valerio Leonard, [address] [facility] [address], [place], [address]. tel:[phone] [facility], [address] [facility] [address], [place], [place], [id number], [place] tel:[phone] Oph Consult [facility] No Information 9 Sabino Luo. [address] [facility], [address], [place], [address], [place]. tel:[phone] Referring Provider: Sherman Crain OD, [address] [place], [place], [id number]. tel:[phone] Family History Family Member Type Diagnosis Age At Onset No Information Payers Payer name Insurance type Covered constitution party ID Authoriza tion(s) Medicare Complete Advantage [facility] [id number] Social History Type Description Quantity Date Captured [...]
--- OUTSIDE RECORDS SUMMARY | 2024-08-01 19:14 | XMS_ITS | Referral Summary ---
Author Organization [facility] Address [address] [place] [address] Care Team Providers Care Drafter Seismograph Name Role Phone Solitario Vaughn MD Unavailable [phone] Timoteo Sharep MD Primary Care Provider Maria Del Rosario Murcia RD Unavailable [phone] Evens Geronimo MD Unavailable [phone] Encounters Date Type Department Care Team Description 08/01/2024 Telephone [facility] Cardiology [address] [facility] [address] [place] [phone] Alec Sanchez MD 07/21/2024 Telephone [facility] Primary Care at [address] [phone] Timoteo Sharpe MD 07/20/2024 Telephone [facility] Cardiology [address] [facility] [address] [place] [phone] Alec Sanchez MD 07/05/2024 11:00 AM LIBRARY MEDIA TECHNICIAN - 07/05/2024 11:59 PM LIBRARY MEDIA TECHNICIAN Hospital Encounter [facility] Nutrition and Diabetic Education 1 [facility] [address] [place] [address] Discharge Disposition: Discharge to home or self care 07/01/2024 Telephone [facility] Primary Care at [address] [phone] Joann Walton MA 06/08/2024 2:00 PM LIBRARY MEDIA TECHNICIAN Office Visit [facility] Primary Care at [address] [phone] Timoteo Sharpe MD Hypertension associated with diabetes (HCC) (Primary Dx); Hyperlipidemia associated with type 2 diabetes mellitus (HCC); Coronary artery disease of [place] artery of [place] heart with stable angina pectoris; Recurrent major depressive disorder, in full remission; Diabetic polyneuropathy associated with type 2 diabetes mellitus (HCC) 06/07/2024 1:30 PM LIBRARY MEDIA TECHNICIAN Office Visit [facility] Cardiology at [address] [place] [phone] Alec Sanchez MD Hypertension associated with diabetes (HCC) (Primary Dx); Hyperlipidemia associated with type 2 diabetes mellitus (HCC); Coronary artery disease of [place] artery of [place] heart with stable angina pectoris; Stage 3b chronic kidney disease (HCC); Aneurysm of right common iliac artery 06/01/2024 10:11 AM LIBRARY MEDIA TECHNICIAN - 06/01/2024 11:59 PM LIBRARY MEDIA TECHNICIAN Hospital Encounter [address] [address] Benign prostatic hyperplasia with urinary obstruction; Obesity, diabetes, and hypertension syndrome (HCC); Stage 3b chronic kidney disease (HCC); Hyperlipidemia associated with type 2 diabetes mellitus (HCC) Discharge Disposition: Discharge to home or self care 06/01/2024 10:00 AM LIBRARY MEDIA TECHNICIAN Lab [facility] Outpatient Lab at [address] [phone] Hypertension associated with diabetes (HCC) (Primary Dx) 06/01/2024 Telephone [facility] Primary Care at [address] [phone] Timoteo Sharpe MD Additional Services Or Orders 05/26/2024 1:40 PM LIBRARY MEDIA TECHNICIAN Office Visit [facility]) - [facility] [address] [place] [address] Medical Office Building [address] [place] [address] Isha Yang MD Obstructive sleep apnea (Primary Dx); BMI 40.0-44.9, adult ([facility]) 05/19/2024 Telephone [facility] Primary Care at [address] [phone] Timoteo Sharpe MD Medication Request 05/19/2024 Nurse Triage [facility] Primary Care at [address] [phone] Timoteo Sharpe MD 05/13/2024 11:45 AM LIBRARY MEDIA TECHNICIAN Office Visit [facility] Sleep Medicine at [address] [place] [address] Tatiana Mejia MD Obstructive sleep apnea (Primary Dx); Hypersomnia; Obesity, unspecified class, unspecified obesity type, unspecified whether serious comorbidity present 05/13/2024 10:30 AM LIBRARY MEDIA TECHNICIAN - 05/13/2024 11:59 PM LIBRARY MEDIA TECHNICIAN Hospital Encounter [facility] Nutrition and Diabetic Education 1 [facility] [address] [place] [address] Murcia, Maria Del Rosario Chow RD Discharge [...] 24 hr tabletIndication s:Coronary artery disease of [place] artery of [place] heart with stable angina pectoris Take 1 [...] 03/25 Assessment & Plan (04/08/2023 10:59 AM LIBRARY MEDIA TECHNICIAN): A(n) yearly Medicare Annual Wellness Visit has [...] 04/05/2022 Assessment & Plan (04/05/2022 1:22 PM LIBRARY MEDIA TECHNICIAN): Dizziness was likely vasovagal, but we will [...] artery disease of n ative artery of [place] heart with stable angina pectoris 01/21/2022 Hyperlipidemia [...] get Thursday on the day of the junior account manager appointment) Continuing current regimen, though BP is mildly elevated Assessment & Plan (06/15/2022 12:55 PM LIBRARY MEDIA TECHNICIAN): The a1c is improving nicely, now at [...] reduction. Assessment & Plan (06/23/2023 12:43 PM LIBRARY MEDIA TECHNICIAN): A1c down slightly, still above 8% Will [...] provided. Assessment & Plan (04/08/2023 10:59 AM LIBRARY MEDIA TECHNICIAN): BMI Follow-up includes: nutrition counseling, exercise counseling, and education provided. Assessment & Plan (06/15/2022 12:15 PM LIBRARY MEDIA TECHNICIAN): BMI Follow-up includes: nutrition counseling, exercise counseling [...] 07/12/2021 Assessment & Plan (07/12/2021 10:21 AM LIBRARY MEDIA TECHNICIAN): Likely was reflux-related rather than cardiac based on work up, however small abnormality was seen on lexiscan. 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5 06/08/2024 2:00 PM LIBRARY MEDIA TECHNICIAN Plan of Treatment Upcoming Encounters Date Type Department Care Team (Latest Contact Info) Description 08/02/2024 11:00 AM CDT Hospital Encounter [facility] Cardiac Catheterization Lab [address] [place] [address] Ubaldo Cantu MD [address] [phone] Chest pain, unspecified type 08/02/2024 11:00 AM CDT - 08/02/2024 12:30 PM CDT Surgery [facility] Cardiac Catheterization Lab [address] [place] [address] Ubaldo Cantu MD [address] [phone] LEFT HEART CATHETERIZATION WITH CORONARY ANGIOGRAPHY AND WITH OR WITHOUT LEFT VENTRICULOGRAM [id number] 08/09/2024 10:00 AM CDT Hospital Encounter [facility] Operating Room [address] [place] [address] Isha Yang [place] [id number] [place] [id number] 08/09/2024 10:00 AM CDT - 08/09/2024 10:30 AM CDT Surgery [facility] Operating Room [address] [place] [address] Isha Yang MD [address] [place] [address] DRUG INDUCED SLEEP ENDOSCOPY Scheduled Procedures Name Priority Associated Diagnoses Date/Ti me DRUG INDUCED SLEEP ENDOSCOPY EVAL FLEX DIAG NUVIA (obstructive sleep apnea) 08/09/2024 10:00 AM CDT Medical Devices Implanted Type Area Deodorizer Operator Device Identifier Shelf Expiration Date Model / Serial / Lot Medtronic Card Vasc Surgery 3.5 X 15mm [place] Rx Coronary Stent [id number] - [id number] Implanted:Qty: 1 on 07/29/2022 by Ubaldo Cantu MD at [facility] Medtronic Card Vasc Surgery 10/11/2023 [id number] / / [id number] [employer] Angio-Seal Vip 6fr Closere Device [id number] - [id number] Implanted:Qty: 1 on 07/29/2022 by Ubaldo Cantu MD at [facility] [employer] 02/21/2023 [id number] / / [id number] Procedures Procedure Name Priority Date/Time Associated Diagnosis Comments EGFR Routine 06/01/2024 10:11 AM LIBRARY MEDIA TECHNICIAN Stage 3b chronic kidney disease (HCC) DIFFERENTIAL AUTO Routine 06/01/2024 10: 11 AM LIBRARY MEDIA TECHNICIAN Obesity, diabetes, and hypertension syndrome (HCC) Hyperlipidemia associated with type 2 diabetes mellitus (HCC) COMPREHENSIVE METABOLIC PANEL Routine 06/01/2024 10:11 AM LIBRARY MEDIA TECHNICIAN Stage 3b chronic kidney disease (HCC) CBC WITH AUTO DIFFERENTIAL Routine 06/01/2024 10:11 AM LIBRARY MEDIA TECHNICIAN Obesity, diabetes, and hypertension syndrome (HCC) Hyperlipidemia associated with type 2 diabetes mellitus (HCC) LIPID PANEL Routine 06/01/2024 10:11 AM LIBRARY MEDIA TECHNICIAN Hyperlipidemia associated with type 2 diabetes mellitus (HCC) HEMOGLOBIN A1C Routine 06/01/2024 10:11 AM LIBRARY MEDIA TECHNICIAN Obesity, diabetes, and hypertension syndrome (HCC) Hyperlipidemia associated with type 2 diabetes mellitus (HCC) ALBUMIN CREATININE RATIO, URINE Routine 06/01/2024 10:11 AM LIBRARY MEDIA TECHNICIAN Obesity, diabetes, and hypertension syndrome (HCC) Stage 3b chronic kidney disease (HCC) PSA SCREEN Routine 06/01/2024 10:11 AM LIBRARY MEDIA TECHNICIAN Benign prostatic hyperplasia with urinary obstruction STOOL DNA COLOGUARD Routine 04/18/2023 4:15 PM LIBRARY MEDIA TECHNICIAN Colon cancer screening DIABETES EYE EXAM Routine [...] Results * (ABNORMAL) eGFR (06/01/2024 10:11 AM LIBRARY MEDIA TECHNICIAN) eGFR 40(L) >=60 mL/min/1. 73 m2 Comment: [...] reviewed 2021. Blood 06/01/2024 10:1 1 AM LIBRARY MEDIA TECHNICIAN 06/01/2024 5:56 PM LIBRARY MEDIA TECHNICIAN us Timoteo Sharpe MD LAB BLOOD ORDERABLES Final Result [facility] [address] [place] [address] * Differential, auto (06/01/2024 10:11 AM LIBRARY MEDIA TECHNICIAN) Neutrophil abs 3.8 1.5 - 6.5 K/cumm Imm gran abs 0.0 0.0 - 0.1 K/cumm [facility] Lymphocyte abs 1.1 0.8 - 3.3 K/cumm [facility] Monocyte abs 0.5 0.2 - 0.8 K/cumm [facility] Eosinophil abs 0.2 0.0 - 0.5 K/cumm [facility] Basophil abs 0.0 0.0 - 0.1 K/cumm [facility] Neutrophil pct 68.2 % [facility] Comment: Interpretive Data Percent cell count reference ranges are not reported, since discordance with absolute values may lead to misinterpretation of CBC data. Current Interpretive Data was last revised on 2017. Imm gran pct 0.4 % [facility] Comment: Interpretive Data Percent cell count reference ranges are not reported, since discordance with absolute values may lead to misinterpretation of CBC data. Current Interpretive Data was last revised on 2017. Lymphocyte pct 18.7 % [facility] Comment: Interpretive Data Percent cell count reference ranges are not reported, since discordance with absolute values may lead to misinterpretation of CBC data. Current Interpretive Data was last revised on 2017. Monocyte pct 8.3 % [facility] Comment: Interpretive Data Percent cell count reference ranges are not reported, since discordance with absolute values may lead to misinterpretation of CBC data. Current Interpretive Data was last revised on 2017. Eosinophil pct 3.9 % [facility] Comment: Interpretive Data Percent cell count reference ranges are not reported, since discordance with absolute values may lead to misinterpretation of CBC data. Current Interpretive Data was last revised on 2017. Basophil pct 0.5 % [facility] Comment: Interpretive Data Percent cell count reference ranges are not reported, since discordance with absolute values may lead to misinterpretation of CBC data. Current Interpretive Data was last revised on 2017. Blood 06/01/2024 10:1 1 AM LIBRARY MEDIA TECHNICIAN 06/01/2024 5:56 PM LIBRARY MEDIA TECHNICIAN us Timoteo Sharpe MD LAB BLOOD ORDERABLES Final Result [facility] [address] [place] [address] * PSA screen (06/01/2024 10:11 AM LIBRARY MEDIA TECHNICIAN) PSA-Total 1.50 <=6.20 ng/mL Comment: Interpretive Data [...] revised 21. Blood 06/01/2024 10:1 1 AM LIBRARY MEDIA TECHNICIAN 06/01/2024 5:56 PM LIBRARY MEDIA TECHNICIAN Timoteo Sharpe MD LAB BLOOD ORDERABLES Final Result [facility] [address] [place] [address] * (ABNORMAL) CBC with auto differential (06/01/2024 10:11 AM LIBRARY MEDIA TECHNICIAN) WBC 5.6 3.8 - 9.9 K/cumm Hgb 12.5(L) 13.0 - 17.5 g/dL [facility] Hct 40.8 38.9 - 50.3 % [facility] Plt 231 150 - 400 K/cumm [facility] MPV 9.7 9.1 - 12.3 fL [facility] RBC 4.49 4.30 - 5.80 M/cumm [facility] MCV 90.9 81.3 - 96.4 fL [facility] MCH 27.8 27.1 - 33.3 pg [facility] MCHC 30.6(L) 32.3 - 35.7 g/dL [facility] RDW CV 14.0 11.1 - 14.9 % [facility] CH RDW SD 46.5 35.7 - 48.1 fL [facility] NRBC abs 0.00 0.00 - 0.01 K/cumm [facility] CH Blood 06/01/2024 10:1 1 AM LIBRARY MEDIA TECHNICIAN 06/01/2024 5:56 PM LIBRARY MEDIA TECHNICIAN Result [facility] Timoteo Sharpe MD LAB BLOOD ORDERABLES Final Result Performing Organization Address [facility] Phone Number [facility] [phone] [facility] [address] [place] [address] * Albumin Creatinine Ratio, Urine (06/01/2024 10:11 AM LIBRARY MEDIA TECHNICIAN) Albumin Ur 18.8 mg/L Comment: Interpretive Data No reference range established. Current interpretive data was last revised 2018. Creatinine Ur 204.0 mg/dL [facility] Comment: Interpretive Data No reference range established. Current interpretive data was last revised 2018. Albumin Creatinine Ratio, Ur 9 1 - 29 mg/g [facility] Urine 06/01/2024 10:1 1 AM LIBRARY MEDIA TECHNICIAN 06/01/2024 5:56 PM LIBRARY MEDIA TECHNICIAN Result [facility] Timoteo Sharpe MD LAB URINE ORDERABLES Final Result Performing Organization Address [facility] Phone Number [facility] [phone] [facility] [address] [place] [address] * (ABNORMAL) Hemoglobin A1c (06/01/2024 10:11 AM LIBRARY MEDIA TECHNICIAN) Hgb A1C 6.4(H) 4.0 - 5.6 % Estimated Average Glucose 137 mg/dL [facility] Comment: The ADA recommends reporting an estimated Average Glucose (eAG) with all Hemoglobin A1c results using the equation derived from a study of 507 normal and diabetic adults. Minority populations were underrepresented and children were not included. (Diabetes Care 31:6965-0610, 2008). The eAG is not equivalent to a fasting glucose. Blood 06/01/2024 10:1 1 AM LIBRARY MEDIA TECHNICIAN 06/01/2024 5:56 PM LIBRARY MEDIA TECHNICIAN Result [facility] Timoteo Sharpe MD LAB BLOOD ORDERABLES Final Result Performing Organization Address [facility] Co de Phone Number [facility] [address] [place] [address] * Lipid panel (06/01/2024 10:11 AM LIBRARY MEDIA TECHNICIAN) Cholesterol 140 30 - 199 mg/dL Comment: [...] [facility] CH Blood 06/01/2024 10:1 1 AM LIBRARY MEDIA TECHNICIAN 06/01/2024 5:56 PM LIBRARY MEDIA TECHNICIAN us Timoteo Sharpe MD LAB BLOOD ORDERABLES Final Result [facility] [address] [place] [address] * (ABNORMAL) Comprehensive metabolic panel (06/01/2024 10:11 AM LIBRARY MEDIA TECHNICIAN) Sodium 143 135 - 145 mmol/L Potassium, [...] [facility] CH Blood 06/01/2024 10:1 1 AM LIBRARY MEDIA TECHNICIAN 06/01/2024 5:56 PM LIBRARY MEDIA TECHNICIAN Timoteo Sharpe MD LAB BLOOD ORDERABLES Final Result [facility] [address] [facility] [place] [address] * Stool DNA - Cologuard (04/18/2023 4:15 PM LIBRARY MEDIA TECHNICIAN) Pathologist [facility] Stool DNA - Cologuard Negative Negative [facility] (CLIA #:[id number]) Comment: NEGATIVE TEST RESULT. A negative Cologuard [...] Coughlin et al, N Engl J Med 2014;370(14):5701-6299) The normal value (reference range) for this assay is negative. COLOGUARD RE-SCREENING RECOMMENDATION: Periodic colorectal cancer screening is an important part of preventive healthcare for asymptomatic individuals at average risk for colorectal cancer. Following a negative Cologuard result, the [place] Cancer Society and U.S. Multi-Society Task Force screening guidelines recommend a Cologuard re-screening interval of 3 years. References: [place] [employer] Guideline for Colorectal Cancer Screening: https://www.cancer.org/cancer/lnhji-vhzlso-wnnpgr/xxxejhxnm-xihbpitbb-hcpvrle/ac s-rec ommendations.html.; Rambo CAGLE, Sam SANTOS, Anaid BledsoeK, Colorectal Cancer Screening: Recommendations for Physicians and Patients from the U.S. Multi-Society Task Force on Colorectal Cancer Screening , Am J Gastroenterology 2017; 112:5954-3653. TEST DESCRIPTION: Composite algorithmic analysis of stool [...] Coughlin et al, N Engl J Med 2014;370(14):9088-7643.) Cologuard may produce a false negative or false positive result (no colorectal cancer or precancerous polyp present at colonoscopy follow up). A negative Cologuard test result does not guarantee the absence of CRC or advanced adenoma (pre-cancer). The current Cologuard screening interval is every 3 years. ([place] Cancer Society and U.S. Multi-Society Task Force). Cologuard performance data in a 10,000 patient pivotal study using colonoscopy as the reference method can be accessed at the following location: www.[employer]/results. Additional description of the Cologuard test process, warnings and precautions can be found at www.cologuard.com. Stool 04/18/2023 4:15 PM LIBRARY MEDIA TECHNICIAN 04/21/2023 11:30 AM LIBRARY MEDIA TECHNICIAN Timoteo Sharpe MD LAB BODY FLUIDS AND STOOLS ORDERABLES Final Result [facility] (CLIA #:[id number]) [address] [place] [address] * DIABETES EYE EXAM (02/27/2023) Historical Provider [facility] Edited Result - Final * US [...] by Kodak Montes M.D., JR: Report ID: [id number] Reading Location: [id number] Procedure Note Kodak Montes MD - 03/19/2021 [...] by Kodak Montes M.D. JR: Report ID: [id number] Reading Location: [id number] us Timoteo Sharpe MD IMG US PROCEDURES [...] - GENERAL ORDERABLES Final Result [facility] [address] [place] [address] from Last 3 Months or Most Recently Relevant to Health Maintenance Insurance [employer] MEDICARE GOLD [employer] CHOICE MEDICARE PPO TNA MEDICARE GOLD WORKERS COMPENSATION GENERIC BISI [place]WELL Advance Directives For more information, please contact: [phone] * Full Code (Latest Code Status on File) Date Activated Date Inactivated Comments 07/29/2022 12:26 PM 07/29/2022 8:20 PM * Full Code Date Activated Date Inactivated Comments 01/25/2021 7:09 PM 01/29/2021 6:54 PM * Full Code Date Activated Date Inactivated Comments 01/24/2021 3:16 PM 01/25/2021 1:31 PM * Full Code Date Activated Date Inactivated Comments 01/22/2021 9:10 PM 01/23/2021 9:30 PM Care Teams Drafter Seismograph Relationship Specialty Start Date End Date Timoteo Sharpe MD PCP - General Family Medicine 03/08/21 CarefreeSolitario santana MD Consulting Physician Urology 01/23/21 [address] [facility] [place] [address] Dietitian 03/03/23 Evens Geronimo MD [address] [facility] [place] [address] Referring Physician Orthopedic Surgery 03/24/24 [facility] [place], [address] Physical Therapist Physical Therapy 11/11/22
== END 2024-08-01 18:36 | disposition home or self-care (01) ==
PROVIDERS: Emergency Provider Emergency Medicine; PCP Family Medicine
DX: R42 Dizziness and giddiness (principal); E11.22 Type 2 diabetes mellitus with diabetic chronic kidney disease; I12.9 Hypertensive chronic kidney disease with stage 1 through stage 4 chronic kidney disease, or unspecified chronic kidney disease; N18.30 Chronic kidney disease, stage 3 unspecified; I35.0 Nonrheumatic aortic (valve) stenosis; D64.9 Anemia, unspecified; N40.0 Benign prostatic hyperplasia without lower urinary tract symptoms; K21.9 Gastro-esophageal reflux disease without esophagitis; Z98.49 Cataract extraction status, unspecified eye; Z87.891 Personal history of nicotine dependence; Z90.79 Acquired absence of other genital organ(s); Z79.84 Long term (current) use of oral hypoglycemic drugs; Z79.899 Other long term (current) drug therapy; Z79.82 Long term (current) use of aspirin; I44.0 Atrioventricular block, first degree; R94.31 Abnormal electrocardiogram [ECG] [EKG]
CPT/HCPCS: 36415; 70450; 80053; 84484; 85025; 85610; 85730; 93005; 99284

== ENCOUNTER 2024-09-01 10:00 | Outpatient (RCR) | payer MEDICARE, SELFPAY ==
[2024-08-30 16:00] VITALS: PULSE 60
[2024-08-31 11:00] LABS: Glucose Point of Care 183 mg/dl (65-105)
[2024-08-31 11:00] LABS: Glucose Point of Care 169 mg/dl (65-105)
[2024-09-01 11:11] LABS: Glucose Point of Care 171 mg/dl (65-105)
== END 2024-09-28 13:08 | disposition home or self-care (01) ==
LOC: ANHCPREHAB 10:00
PROVIDERS: PCP Family Medicine; Visit Provider Internal Medicine Cardiovascular Disease
DX: I20.9 Angina pectoris, unspecified (principal)
CPT/HCPCS: 93798